=== PATIENT | male | born 1950 | race Caucasian/White ===

== ENCOUNTER 2018-01-16 22:09 | Inpatient (IN) ==
[2018-01-16] MEDS ORDERED: *HR* OxyCODONE Immed Rel 5 MG TABLET PO ONE (22:46)
--- NOTE | 2018-01-16 22:52 | Emergency Department Note ---
Disposition Clinical Impression: Pleural effusion, Generalized weakness, History of liver cancer Anemia Qualifiers: Anemia type: unspecified type Qualified Code(s): D64.9 - Anemia, unspecified Disposition: Admitted As Inpatient Condition: Fair Referrals: Elizabeth Arcos MD [Non-Partnered Physician] - Forms: ED Satisfaction Letter General Adult HPI - General Chief complaint: ED Fever Stated complaint: Fever Time Seen by Provider: 01/16/18 22:26 Source: patient, EMS Limitations: no limitations Nursing Notes Reviewed: Yes Vital Signs Reviewed: Yes - History of Present Illness HPI Narrative: This is a 67 year-old male with history of HTN, IDDM, COPD, CAD/stent, and liver cancer. Earlier today, he was discharged from [facility], where he had undergone cholecystectomy and removal of a liver mass. Earlier this evening, he had a subjective fever. He says that he "aches all over," though he denies any acute pain complaints. He reports a chronic, minimally productive cough. Ascites at baseline. He was diagnosed with liver cancer 1.5 years ago. He underwent radiation therapy, with last treatment 1 year ago. He has not received chemo. Family members suspect that he feels unwell because of the long car ride home from [place]. Pt Subjective Complaint: Fever Onset (ago): hour(s) Pain Scale: 8 Associated symptoms: Reports: cough (chronic), fever/chills (subjective). Denies: confusion, chest pain, headaches - Related Data Home Medications Medication Instructions Recorded Confirmed Aspirin 81 mg PO DAILY 08/14/16 10/22/17 Metoprolol Tartrate [Lopressor] 25 mg PO BID 08/14/16 10/22/17 Valsartan [Diovan] 320 mg PO DAILY 08/14/16 10/22/17 glipiZIDE [Glucotrol] 5 mg PO BIDWM 08/14/16 10/22/17 hydroCHLOROthiazide 25 mg PO DAILY 08/14/16 10/22/17 [Hydrochlorothiazide] metFORMIN [Glucophage] 1,000 mg PO BIDWM 08/14/16 10/22/17 Cholecalciferol (D-3) [Vitamin D] 2 tab PO DAILY 09/20/16 10/22/17 Dapagliflozin Propanediol [Farxiga] 10 mg PO DAILY 09/20/16 10/22/17 Liraglutide [Victoza 2-Justin] 1.8 mg SQ DAILY 09/20/16 10/22/17 Lovastatin 40 mg PO DAILY 09/20/16 10/22/17 Montelukast [Singulair] 10 mg PO DAILY 09/20/16 10/22/17 Gabapentin [Neurontin] 300 mg PO QID 10/02/16 10/22/17 [place]-3/Dha/Epa/Fish Oil [Fish Oil 1,000 mg PO DAILY 10/11/16 10/22/17 1,000 mg Softgel] Tiotropium [Spiriva] 1 cap IH DAILY 10/11/16 10/22/17 Vitamin E 400 unit PO DAILY 10/11/16 10/22/17 Vitamin B12 1 tab PO DAILY 11/08/16 10/22/17 Insulin ASPART [NovoLOG] 0 unit SQ TIDWM 06/25/17 10/22/17 Insulin DETEMIR [Levemir] 30 unit SQ 0800 06/25/17 10/22/17 Previous Rx's Medication Instructions Recorded HYDROcodone/Acet 5/325 mg [[place] 1 - 2 tab PO Q4H PRN #120 tab 03/14/17 5-325 mg] Allergies Allergy/AdvReac Type Severity Reaction Status Date / Time bacitracin Allergy Rash Verified 10/22/17 08:11 [From Neosporin ([id number])] Neomycin Allergy Rash Verified 10/22/17 08:11 [From Neosporin ([id number])] polymyxin B Allergy Rash Verified 10/22/17 08:11 [From Neosporin ([id number])] Sulfa (Sulfonamide Allergy Rash Verified 10/22/17 08:11 Antibiotics) All systems ED: reviewed and negative except as stated. Constitutional: Reports: chills, weakness (generalized) Cardiovascular: Denies: chest pain Respiratory: Reports: cough (chronic), dyspnea (sounds chronic) Gastrointestinal: Reports: abdominal pain (not acutely worse). Denies: vomiting , melena, hematochezia Musculoskeletal: Reports: myalgia Past Medical History - Past Medical History Medical history: Reports: arthritis, cancer, COPD, diabetes, hyperlipidemia, hypertension, liver disease Surgical history: Reports: appendectomy, orthopedic, other Psychiatric history: Reports: no psych history - Social History Smoking Status: Current every day smoker Smokeless Tobacco Status: No Alcohol use: Reports: occasionally Drug use: Reports: none Physical Exam - General Limitations: no limitations General appearance: alert - Head Head exam: atraumatic, normocephalic - Eye Eye exam: Present: normal appearance. Absent: scleral icterus - ENT ENT exam: normal exam, mucous membranes moist - Neck Neck exam: Present: normal inspection. Absent: meningismus - Respiratory Respiratory exam: Present: normal lung sounds bilaterally. Absent: respiratory distress - Cardiovascular Cardiovascular exam: Present: regular rate, normal rhythm, normal heart sounds - Abdominal Exam Abdominal exam: Present: soft, tenderness (moderate), distention (ascites). Absent: guarding, rebound, rigidity Abdominal tenderness: Present: RUQ, diffuse - Extremities Exam Extremities exam: Present: normal inspection - Neurological Exam Neurological exam: Present: alert, oriented X3. Absent: motor sensory deficit - Psychiatric Psychiatric exam: Present: depressed - Skin Skin exam: Present: erythema (faint erythema adjacent to abdominal port/ incision sites, not obviously cellulitic) Course - Reevaluation(s) Reevaluation #1: Re-evaluated patient. Updated patient and family on diagnostics we have so far. Patient not aware of anemia while at [facility]. We have requested records. He denies any hematemesis, hematochezia, or melena. CT scan and other labs pending. Patient and his family feel that he will be need to be admitted, as he is "too weak to go home." Given his co-morbidities and recent hospitalization/procedure , I feel this is reasonable. Patient and family do not want to be transferred back to [facility]. Once we get more diagnostics back, I'll make some calls. Time: 00:18 Reevaluation #2: Patient remains stable. Updated patient and family on test results and plans for admission. Time: 01:34 - Consultations Consultation #1: Discussed case with heme-onc parts counter sales person, Dr. Grover. He suspects patient is volume- depleted and suggests we hydrate. He also recommends we transfused 1 unit of PRBCs. He suspects the patient's possible fever may have been due to atelectasis , so he does not recommend antibiotics at this time. He feels that patient is appropriate for obs by the hospitalist. Time: 00:44 Consultation #2: Discussed case with Dr. Gallegos, and she has accepted patient for observation. Time: 01:12 Time: 01:35 Additional Consultation(s): Discussed CT result Dr. Gallegos. No antibiotic coverage at this time. Vital Signs Temperature 97.6 F 01/16/18 22:14 Pulse Rate 87 01/16/18 22:14 Respiratory Rate 18 01/16/18 22:14 Blood Pressure 149/75 01/16/18 22:14 O2 Sat by Pulse Oximetry 96 01/16/18 22:14 Temperature 98.2 F 01/16/18 23:12 Pulse Rate 76 01/17/18 01:20 Respiratory Rate 26 01/17/18 01:20 Blood Pressure 149/80 01/17/18 01:20 O2 Sat by Pulse Oximetry 98 01/17/18 01:20 Oxygen Delivery Oxygen Delivery Room Air Medical Decision Making - MDM Narrative Medical decision making narrative: This is a chronically ill patient with recent abdominal surgery due to complications of liver cancer. He presented with subjective fever, malaise, and generalized weakness. He is afebrile here. DDx is quite broad, given patient's co-morbidities and the nonfocal nature of his symptoms. We will obtain basic blood tests, CXR, UA, and CT abdomen/pelvis and will review the case with Dr. Navarro and/or his physicians as [facility]. - Medical Records Medical records reviewed: Yes I reviewed the patient's medical records. Hgb generally trended down while at [facility]. His Hgb was 9.3 on 01/16. - Lab Data Lab results reviewed: Yes I reviewed the patient's lab results. Result diagrams: 01/16/18 23:13 01/16/18 23:13 Lab Results 01/16/18 01/16/18 01/16/18 Range/Units 23:10 23:13 23:13 WBC 11.1 (4.3-11.1) K/mcL RBC 2.68 L (4.19-5.50) M/mcL Hgb 8.3 L (12.9-16.9) g/dL Hct 24.5 L (37.5-50.1) % MCV 91.4 (83.0-100.0) fL MCH 31.0 (28.0-33.3) pg MCHC 33.9 (31.6-35.5) g/dL RDW 14.0 (11.5-14.5) % Plt Count 206 (140-400) K/mcL MPV 9.6 (9.4-12.4) fL Immature Gran % 0.6 (0-4) % Seg Neutrophils % 72.7 % Lymphocytes % 12.1 % Monocytes % 13.9 % Eosinophils % 0.5 % Basophils % 0.2 % Neutrophils # 8.0 (1.6-8.9) K/mcL Lymphocytes # 1.3 (0.6-4.6) K/mcL Monocytes # 1.5 H (0.0-1.3) K/mcL Eosinophils # 0.1 (0.0-0.6) K/mcL Basophils # 0.0 (0.0-0.2) K/mcL PT 12.8 H (9.4-12.1) Seconds INR 1.2 Sodium (136-145) mEq/L Potassium (3.5-5.1) mEq/L Chloride (98-107) mEq/L Carbon Dioxide (23-29) mEq/L BUN (8-23) mg/dL Creatinine (0.70-1.30) mg/dL Est GFR ( Amer) (> 60) Est GFR (Non-Af Amer) (> 60) BUN/Creatinine Ratio (6-26) Glucose (70-105) mg/dL Calculated Osmolality (280-300) Lactic Acid 0.9 (0.5-2.2) mmol/L Calcium (8.6-10.3) mg/dL Total Bilirubin (0.3-1.0) mg/dL Direct Bilirubin (0.0-0.2) mg/dL Indirect Bilirubin (0.0-1.2) mg/dL AST (13-39) Units/L ALT (7-52) Units/L Alkaline Phosphatase (34-104) Units/L Troponin I (< 0.04) ng/mL B-Natriuretic Peptide (Less than 100) pg/mL Serum Total Protein (6.4-8.9) g/dL Albumin (3.5-5.7) g/dL Globulin (2.4-3.5) g/dL Albumin/Globulin Ratio (1.1-2.2) Urine Color (Yellow) Urine Clarity (Clear) Urine pH (5.0-8.0) pH Units Ur Specific [place] (1.010-1.025) Urine Protein (Neg-Trace) mg/dL Urine Glucose (UA) (Normal) mg/dL Urine Ketones (Negative) mg/dL Urine Blood (Negative) Urine Nitrite (Negative) Urine Bilirubin (Negative) Urine Urobilinogen (Normal) mg/dL Ur Leukocyte Esterase (Negative) Urine Microscopic RBC (0-3) per hpf Urine Microscopic WBC (0-3) per hpf Ur Squamous Epith Cells (None-Few) per lpf Urine Bacteria (None-Few) per hpf Hyaline Casts (None-Few) per lpf Ur Culture Indicated? (NO) 01/16/18 01/16/18 01/16/18 Range/Units 23:13 23:13 23:13 WBC (4.3-11.1) K/mcL RBC (4.19-5.50) M/mcL Hgb (12.9-16.9) g/dL Hct (37.5-50.1) % MCV (83.0-100.0) fL MCH (28.0-33.3) pg MCHC (31.6-35.5) g/dL RDW (11.5-14.5) % Plt Count (140-400) K/mcL MPV (9.4-12.4) fL Immature Gran % (0-4) % Seg Neutrophils % % Lymphocytes % % Monocytes % % Eosinophils % % Basophils % % Neutrophils # (1.6-8.9) K/mcL Lymphocytes # (0.6-4.6) K/mcL Monocytes # (0.0-1.3) K/mcL Eosinophils # (0.0-0.6) K/mcL Basophils # (0.0-0.2) K/mcL PT (9.4-12.1) Seconds INR Sodium 129 L (136-145) mEq/L Potassium 4.1 (3.5-5.1) mEq/L Chloride 96 L (98-107) mEq/L Carbon Dioxide 25 (23-29) mEq/L BUN 22 (8-23) mg/dL Creatinine 0.83 (0.70-1.30) mg/dL Est GFR ( Amer) > 60 (> 60) Est GFR (Non-Af Amer) > 60 (> 60) BUN/Creatinine Ratio 27 H (6-26) Glucose 251 H (70-105) mg/dL Calculated Osmolality 280 (280-300) Lactic Acid (0.5-2.2) mmol/L Calcium 8.8 (8.6-10.3) mg/dL Total Bilirubin 0.5 (0.3-1.0) mg/dL Direct Bilirubin 0.1 (0.0-0.2) mg/dL Indirect Bilirubin 0.4 (0.0-1.2) mg/dL AST 39 (13-39) Units/L ALT 222 H (7-52) Units/L Alkaline Phosphatase 119 H (34-104) Units/L Troponin I < 0.03 (< 0.04) ng/mL B-Natriuretic Peptide 152 H (Less than 100) pg/mL Serum Total Protein 6.1 L (6.4-8.9) g/dL Albumin 3.0 L (3.5-5.7) g/dL Globulin 3.1 (2.4-3.5) g/dL Albumin/Globulin Ratio 1.0 L (1.1-2.2) Urine Color (Yellow) Urine Clarity (Clear) Urine pH (5.0-8.0) pH Units Ur Specific [place] (1.010-1.025) Urine Protein (Neg-Trace) mg/dL Urine Glucose (UA) (Normal) mg/dL Urine Ketones (Negative) mg/dL Urine Blood (Negative) Urine Nitrite (Negative) Urine Bilirubin (Negative) Urine Urobilinogen (Normal) mg/dL Ur Leukocyte Esterase (Negative) Urine Microscopic RBC (0-3) per hpf Urine Microscopic WBC (0-3) per hpf Ur Squamous Epith Cells (None-Few) per lpf Urine Bacteria (None-Few) per hpf Hyaline Casts (None-Few) per lpf Ur Culture Indicated? (NO) 01/17/18 Range/Units 00:04 WBC (4.3-11.1) K/mcL RBC (4.19-5.50) M/mcL Hgb (12.9-16.9) g/dL Hct (37.5-50.1) % MCV (83.0-100.0) fL MCH (28.0-33.3) pg MCHC (31.6-35.5) g/dL RDW (11.5-14.5) % Plt Count (140-400) K/mcL MPV (9.4-12.4) fL Immature Gran % (0-4) % Seg Neutrophils % % Lymphocytes % % Monocytes % % Eosinophils % % Basophils % % Neutrophils # (1.6-8.9) K/mcL Lymphocytes # (0.6-4.6) K/mcL Monocytes # (0.0-1.3) K/mcL Eosinophils # (0.0-0.6) K/mcL Basophils # (0.0-0.2) K/mcL PT (9.4-12.1) Seconds INR Sodium (136-145) mEq/L Potassium (3.5-5.1) mEq/L Chloride (98-107) mEq/L Carbon Dioxide (23-29) mEq/L BUN (8-23) mg/dL Creatinine (0.70-1.30) mg/dL Est GFR ( Amer) (> 60) Est GFR (Non-Af Amer) (> 60) BUN/Creatinine Ratio (6-26) Glucose (70-105) mg/dL Calculated Osmolality (280-300) Lactic Acid (0.5-2.2) mmol/L Calcium (8.6-10.3) mg/dL Total Bilirubin (0.3-1.0) mg/dL Direct Bilirubin (0.0-0.2) mg/dL Indirect Bilirubin (0.0-1.2) mg/dL AST (13-39) Units/L ALT (7-52) Units/L Alkaline Phosphatase (34-104) Units/L Troponin I (< 0.04) ng/mL B-Natriuretic Peptide (Less than 100) pg/mL Serum Total Protein (6.4-8.9) g/dL Albumin (3.5-5.7) g/dL Globulin (2.4-3.5) g/dL Albumin/Globulin Ratio (1.1-2.2) Urine Color Yellow (Yellow) Urine Clarity Cloudy A (Clear) Urine pH 5.5 (5.0-8.0) pH Units Ur Specific [place] 1.026 H (1.010-1.025) Urine Protein 30 H (Neg-Trace) mg/dL Urine Glucose (UA) >=1000 H (Normal) mg/dL Urine Ketones Negative (Negative) mg/dL Urine Blood Negative (Negative) Urine Nitrite Negative (Negative) Urine Bilirubin Negative (Negative) Urine Urobilinogen Normal (Normal) mg/dL Ur Leukocyte Esterase Negative (Negative) Urine Microscopic RBC 5-15 H (0-3) per hpf Urine Microscopic WBC 0-3 (0-3) per hpf Ur Squamous Epith Cells Many H (None-Few) per lpf Urine Bacteria None Seen (None-Few) per hpf Hyaline Casts Few (None-Few) per lpf Ur Culture Indicated? NO (NO) - Radiology Data Radiology results reviewed: Yes I reviewed the patient's radiology results. XR/XR chest 1V portable IMPRESSION: New small layering left pleural effusion with left base opacity that may reflect atelectasis or pneumonia. CT/CT abd pelvis w iv no oral IMPRESSION: Gas containing subcapsular fluid collections in the left and right hepatic lobes, as detailed above. Foci of gas may be postsurgical, however cannot exclude superinfection and developing hepatic abscesses. Mild dilatation of the duodenum, presumably reactive adynamic ileus. Asymmetric urinary bladder wall thickening is new since 10/15/2017 PET-CT and favored to represent asymmetric contraction of the urinary bladder. Additionally, nondependent gas within the bladder is also presumably related instrumentation/camacho catheterization. Consider correlation with urinalysis if there is concern for cystitis. Gas within the right rectus muscles, presumably postsurgical. No superficial soft tissue drainable fluid collection. Recommend attention on follow-up. Small right and trace left pleural effusions. Mild body wall edema. - EKG Data EKG #1 EKG attestation: Yes I reviewed and interpreted this EKG. EKG shows normal: sinus rhythm Rate: normal Rhythm: NSR Mcgraw/QRS: normal When compared to previous EKG there are: changes noted (inferior Q waves (lead III) more prominent than on tracing from 01/05/18) Interpretation: other (no acute ischemic findings noted)
[2018-01-16] MEDS ORDERED: Isovue-370 500 ML INFUS..BTL IV ONE (23:19)
[2018-01-16 23:31] LABS: Basophils % 0.2 %; Eosinophils # 0.1 K/mcL (0.0-0.6); Eosinophils % 0.5 %; Hematocrit 24.5 % (37.5-50.1); Hemoglobin 8.3 g/dL (12.9-16.9); Immature Granulocytes % 0.6 % (0-4); Lymphocytes # 1.3 K/mcL (0.6-4.6); Lymphocytes % 12.1 %; Mean Corpuscular HGB Conc 33.9 g/dL (31.6-35.5); Mean Corpuscular Volume 91.4 fL (83.0-100.0); Mean Platelet Volume 9.6 fL (9.4-12.4); Monocytes # 1.5 K/mcL (0.0-1.3); Monocytes % 13.9 %; Platelet Count 206 K/mcL (140-400); Red Blood Count 2.68 M/mcL (4.19-5.50); Segmented Neutrophils % 72.7 %
[2018-01-16 23:36] LABS: INR 1.2; Prothrombin Time 12.8 Seconds (9.4-12.1)
[2018-01-17 00:12] LABS: Bilirubin,Urine Negative (Negative); Blood,Urine Negative (Negative); Clarity,Urine Cloudy (Clear); Color,Urine Yellow (Yellow); Glucose,Urine (UA) >=1000 mg/dL (Normal); Ketones,Urine Negative (Negative); Leukocyte Esterase,Urine Negative (Negative); Nitrite,Urine Negative (Negative); PH,Urine 5.5 pH Units (5.0-8.0); Protein,Urine 30 mg/dL (Neg-Trace); Specific Gravity,Urine 1.026 (1.010-1.025); Urobilinogen,Urine Normal (Normal)
[2018-01-17 00:14] LABS: Bacteria,Urine None Seen per hpf (None-Few); Hyaline Casts,Urine Few per lpf (None-Few); Squamous Epithelial Cell,Urine Many per lpf (None-Few); WBC,Urine 0-3 per hpf (0-3)
[2018-01-17 00:29] LABS: Alanine Aminotransferase 222 Units/L (7-52); Alkaline Phosphatase 119 Units/L (34-104); Aspartate Amino Transferase 39 Units/L (13-39); BUN/Creatinine Ratio 27 (6-26); Bilirubin,Direct 0.1 mg/dL (0.0-0.2); Bilirubin,Indirect 0.4 mg/dL (0.0-1.2); Bilirubin,Total 0.5 mg/dL (0.3-1.0); Blood Urea Nitrogen 22 mg/dL (8-23); Calcium 8.8 mg/dL (8.6-10.3); Carbon Dioxide 25 mEq/L (23-29); Chloride 96 mEq/L (98-107); Globulin 3.1 g/dL (2.4-3.5); Glucose 251 mg/dL (70-105); Osmolality,Calculated 280 (280-300); Potassium 4.1 mEq/L (3.5-5.1); Sodium 129 mEq/L (136-145); Total Protein 6.1 g/dL (6.4-8.9); eGFR For African Americans > 60 (> 60); eGFR For Non-African Americans > 60 (> 60)
[2018-01-17] MEDS ORDERED: 0.9 % Sodium Chloride 1,000 ML IVC ONE (00:46)
[2018-01-17] MEDS ORDERED: *HR* OxyCODONE Immed Rel 5 MG TABLET PO ONE (01:17)
--- NOTE | 2018-01-17 01:19 | Internal Med History&Physical ---
Date of Encounter: 01/17/18 Time of Encounter: 01:15 Internal Medicine - H&P: HPI Chief complaint: weakness Admitted From: Emergency Dept Plans for Post Hospital Care: Home History of present illness: Mr. 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 Surgeries were done on Friday and discharged Friday. He was intubated for surgery and extubated right after. He experienced subjective fevers and generalized weakness with body aches all over once he got home. He did not want to go back to [facility] as he wasnt happy with his stay there and decided to come here which is closer to home for him too. He says some of the above symptoms were there when he was hospitalized there. He has a wet cough. In the ED, hemodynamically stable. Work up revealed hgb of 8.3 with no reported bleeding. Previous hgb was 13.1. Oncology assistant professor of communication were called and advised 1 unit PRBCs. WBC 11.1. Sodium was 129. AST was elevated at 222 but previously normal on 01/05/2018. Alkaline phos 119 and previously normal on 01/05/2018. AST is normal here. UA was negative for infection. CXR showed new small layering left plerual effusion with left base opacity that may reflect atelectasis or pneumonia. A CT abd/ pelvis done showed gas containing subcapsular fluid collection in the left and right hepating lobes. Those were possibly postsurgical vs hepatic abscesses. Gas within the right rectus muscles presumeably postsurgical. They also commented on asymmetric urinary bladder wall thickening. Denies headache, blurry vision, chest pain, urinary symptoms, or neurological symptoms. He does have some abdominal discomfort still in the right upper quadrant area from the surgery. He has been tolerating regular diet there. Past Med Surg Social Fam HX - Past Medical History Medical history: arthritis, cancer, COPD, diabetes, hyperlipidemia, hypertension , liver disease Psychiatric history: no psych history - Past Surgical History Surgical History: appendectomy, orthopedic, other - Social History Smoking Status: Current every day smoker Smokeless Tobacco Status: No Alcohol use: occasionally Drug use: none Internal Medicine - H&P: Meds Aspirin 81 mg PO DAILY 08/14/16 [History] Metoprolol Tartrate [Lopressor] 25 mg PO BID 08/14/16 [History] Valsartan [Diovan] 320 mg PO DAILY 08/14/16 [History] glipiZIDE [Glucotrol] 5 mg PO BIDWM 08/14/16 [History] hydroCHLOROthiazide [Hydrochlorothiazide] 25 mg PO DAILY 08/14/16 [History] metFORMIN [Glucophage] 1,000 mg PO BIDWM 08/14/16 [History] Cholecalciferol (D-3) [Vitamin D] 2 tab PO DAILY 09/20/16 [History] Dapagliflozin Propanediol [Farxiga] 10 mg PO DAILY 09/20/16 [History] Liraglutide [[place]za 2-Justin] 1.8 mg SQ DAILY 09/20/16 [History] Lovastatin 40 mg PO DAILY 09/20/16 [History] Montelukast [Singulair] 10 mg PO DAILY 09/20/16 [History] Gabapentin [Neurontin] 300 mg PO QID 10/02/16 [History] [place]-3/Dha/Epa/Fish Oil [Fish Oil 1,000 mg Softgel] 1,000 mg PO DAILY 10/11/16 [History] Tiotropium [Spiriva] 1 cap IH DAILY 10/11/16 [History] Vitamin E 400 unit PO DAILY 10/11/16 [History] Vitamin B12 1 tab PO DAILY 11/08/16 [History] HYDROcodone/Acet 5/325 mg [[place] 5-325 mg] 1 - 2 tab PO Q4H PRN #120 tab [Rx] Insulin ASPART [NovoLOG] 0 unit SQ TIDWM 06/25/17 [History] Insulin DETEMIR [Levemir] 30 unit SQ 0800 06/25/17 [History] 3 Allergy/AdvReac Type Severity Reaction Status Date / Time bacitracin Allergy Rash Verified 10/22/17 08:11 [From Neosporin ([id number])] Neomycin Allergy Rash Verified 10/22/17 08:11 [From Neosporin ([id number])] polymyxin B Allergy Rash Verified 10/22/17 08:11 [From Neosporin ([id number]-sfs-[id number])] Sulfa (Sulfonamide Allergy Rash Verified 10/22/17 08:11 Antibiotics) All Systems PM: A 10-system review of systems was performed and is negative for pertinent findings except as documented above in the HPI. Review of systems: All systems reviewed are negative except as mentioned above - Constitutional Vitals: Temp Pulse Resp BP Pulse Ox 98.2 F 87 18 149/75 96 01/16/18 23:12 01/16/18 22:14 01/16/18 22:14 01/16/18 22:14 01/16/18 22:14 Exam: GEN: NAD HEENT: AT, NC, No cyanosis, oral mucosa is moist, No JVD Lymphatics: No lymphadenoapthy Eyes: Extrocular muscles intact, anicteric CVS:RRR. S1, S2, No m/r/g RESP: CTAB ABD: Soft, NT, right upper quadrant tenderness to mild palpation +BS EXT: 1+ edema, No rashes, 2+ DP NEURO: Nonfocal, CN II-XII intact, No focal motor or sensory deficits Psych: Cooperative, Not anxious or depressed Internal Med - H&P Results - Labs CBC & Chem 7: 01/16/18 23:13 01/16/18 23:13 Labs: Short CBC 01/16/18 Range/Units 23:13 WBC 11.1 (4.3-11.1) K/mcL Hgb 8.3 L (12.9-16.9) g/dL Hct 24.5 L (37.5-50.1) % Plt Count 206 (140-400) K/mcL Neutrophils # 8.0 (1.6-8.9) K/mcL BMP 01/16/18 23:13 Sodium 129 L Potassium 4.1 Chloride 96 L Carbon Dioxide 25 BUN 22 Creatinine 0.83 Glucose 251 H Calcium 8.8 Cardiac Enzymes 01/16/18 Range/Units 23:13 Troponin I < 0.03 (< 0.04) ng/mL Liver Function 01/16/18 Range/Units 23:13 Total Bilirubin 0.5 (0.3-1.0) mg/dL Direct Bilirubin 0.1 (0.0-0.2) mg/dL AST 39 (13-39) Units/L ALT 222 H (7-52) Units/L Alkaline Phosphatase 119 H (34-104) Units/L Albumin 3.0 L (3.5-5.7) g/dL Urine 01/17/18 Range/Units 00:04 Urine Color Yellow (Yellow) Urine Clarity Cloudy A (Clear) Urine pH 5.5 (5.0-8.0) pH Units Ur Specific [place] 1.026 H (1.010-1.025) Urine Protein 30 H (Neg-Trace) mg/dL Urine Glucose (UA) >=1000 H (Normal) mg/dL - Impressions ITS Impressions Chest X-Ray 01/16/18 22:45 IMPRESSION: New small layering left pleural effusion with left base opacity that may reflect atelectasis or pneumonia. D/ / Perez Mccormack / Perez Mccormack Interpreting Provider: Perez Mccormack - Assessment and plan (1) Generalized weakness Current Visit: Yes Status: Acute Assessment and plan: Multifactorial with anemia and HCAP. Treat as below. PT/OT (2) HCAP (healthcare-associated pneumonia) Current Visit: Yes Status: Acute Assessment and plan: Patient has subjective fevers. wet cough. shortness of breath. CXR not definitive. Will treat as HCAP and see how he does. O2 support. Nebs. IV vanco/ zosyn. check sputum. check urine strep/legionella. (3) Edema extremities Current Visit: Yes Status: Acute Assessment and plan: Family states patient received significant amount of fluids there. Reji give one time IV lasix 40 mg. BNP mildly elevated at 152. Consider TTE. No history of heart failure (4) Anemia Current Visit: Yes Status: Acute Assessment and plan: Likely post op blood loss. Oncology were contacted by the ED and recommended 1 unit PRBCs. will check labs in am. Lasix with PRBCs as patient has LE edema. Qualifiers: Anemia type: unspecified type Qualified Code(s): D64.9 - Anemia, unspecified (5) History of liver cancer Current Visit: Yes Status: Acute Assessment and plan: s/p post a liver surgery which family tells me they removed a couple of cancerous lesions. Will request records from [facility]. c/s oncology. Findings on CT abd/pelvis are likely post surgical. (6) Type 2 diabetes mellitus Current Visit: No Status: Acute Assessment and plan: Will just put him on sliding scale for now. Will start basal insulin at 15 units for now. Can uptitrate basal insulin once showing that he is actually taking adequate PO post op. Qualifiers: Diabetes mellitus mcc insulin use: with rodent exterminator use Diabetes mellitus complication status: without complication Qualified Code(s): E11.9 - Type 2 diabetes mellitus without complications; Z79.4 - rodent exterminator (current) use of insulin; Z79.4 - rodent exterminator (current) use of insulin; Z79.4 - retirement ( current) use of insulin; Z79.4 - rodent exterminator (current) use of insulin (7) DVT prophylaxis Current Visit: Yes Status: Acute Assessment and plan: SCDs - Time Spent With Patient Total time spent is greater than 50% in coordination of care (as documented) at patient's floor/unit and/or counseling patient:
[2018-01-17] MEDS ORDERED: Naloxone 0.4 MG/ML INJ IVP PRN (01:58)
[2018-01-17] MEDS ORDERED: Ondansetron 4 MG/2 ML VIAL IVP PRN (01:59)
[2018-01-17] MEDS ORDERED: D5% in Water 1,000 ML IVC PRN (02:00)
[2018-01-17] MEDS ORDERED: Dextrose Gel 15 GM/37.5 ML TUBE PO PRN ×2 (02:00)
[2018-01-17] MEDS ORDERED: Furosemide 40 MG/4 ML VIAL IVP ONE (02:00)
[2018-01-17] MEDS ORDERED: *HR* Dextrose 50 % in Water (Syg) 50 ML SYRINGE IVP PRN (02:00)
[2018-01-17] MEDS ORDERED: Insulin DETEMIR 100 UNIT/ML X5UNITS SQ ONE (02:14)
[2018-01-17] MEDS ORDERED: 0.9 % Sodium Chloride 250 ML ONE (04:04)
[2018-01-17] MEDS: *HR* OxyCODONE Immed Rel 5 MG TABLET PO PRN ×3 (04:08→20:35)
[2018-01-17] MEDS: Piperacillin/Tazobactam 3.375 GM in 0.9 % Sodium Chloride Mini Bag 100 ML IVPB SCH ×2 (08:23→17:55)
[2018-01-17] MEDS: Insulin LISPRO 300 UNITS/3 ML VIAL SQ SCH ×4 (08:24→20:36)
[2018-01-17 09:01] LABS: Basophils % 0.3 %; Eosinophils # 0.1 K/mcL (0.0-0.6); Eosinophils % 0.4 %; Hematocrit 31.9 % (37.5-50.1); Immature Granulocytes % 0.8 % (0-4); Lymphocytes # 1.2 K/mcL (0.6-4.6); Lymphocytes % 10.6 %; Mean Corpuscular HGB Conc 33.5 g/dL (31.6-35.5); Mean Corpuscular Hemoglobin 30.8 pg (28.0-33.3); Mean Corpuscular Volume 91.9 fL (83.0-100.0); Mean Platelet Volume 9.6 fL (9.4-12.4); Monocytes # 1.5 K/mcL (0.0-1.3); Monocytes % 13.1 %; Neutrophils # 8.8 K/mcL (1.6-8.9); Platelet Count 218 K/mcL (140-400); Red Blood Count 3.47 M/mcL (4.19-5.50); Red Cell Distribution Width 14.3 % (11.5-14.5); Segmented Neutrophils % 74.8 %
[2018-01-17 09:03] LABS: Hemoglobin 10.7 g/dL (12.9-16.9)
[2018-01-17] MEDS ORDERED: Chloraseptic Spray 177 ML BOTTLE MM PRN (09:09)
[2018-01-17 09:13] LABS: BUN/Creatinine Ratio 23 (6-26); Blood Urea Nitrogen 19 mg/dL (8-23); Calcium 9.3 mg/dL (8.6-10.3); Carbon Dioxide 26 mEq/L (23-29); Chloride 96 mEq/L (98-107); Glucose 248 mg/dL (70-105); Magnesium 1.8 mg/dL (1.6-2.6); Osmolality,Calculated 283 (280-300); Potassium 4.2 mEq/L (3.5-5.1); Sodium 131 mEq/L (136-145); eGFR For African Americans > 60 (> 60); eGFR For Non-African Americans > 60 (> 60)
--- NOTE | 2018-01-17 13:58 | Internal Med Progress Note ---
<RobertBrandon price - Last Filed: 01/17/18 13:56> Date of Encounter: 01/17/18 Time of Encounter: 09:22 - Assessment and plan (1) History of liver cancer Current Visit: Yes Status: Acute Assessment and plan: - s/p post a liver surgery at [facility] which family and patient reports removal of 3 lesions - Will request records from [facility]. - oncology consulted in the emergency room. - Findings on CT abd/pelvis of 3 areas of gas formation in the liver are likely post surgical. - Oncology note says stage IV cancer of unknown primary lesion. Hepatocellular CA given high AFP but also consider cholangiocarcinoma. - Subjective fevers could be a complication of surgery, however CT abdomen shows gas formation which could be secondary to post surgical changes. - Mild abdominal tenderness, no external signs of infection. Plan - Continue to monitor and treat as outpatient - Monitor for signs of post surgical complications - Continue vancomycin and zosyn day #1 for broad spectrum abx - Will plan on repeat CT abdomen tomorrow to evaluate for post surgical changes vs abscess formation. (2) Type 2 diabetes mellitus Current Visit: No Status: Chronic Assessment and plan: Blood sugar most recently 248 on sliding scale insulin Most recent A1c of 9.2% on 01/05/18 Patient has moderate dose sliding scale insulin We will continue sliding scale insulin and adjust for optimal blood sugar control Qualifiers: Diabetes mellitus intermodal dispatcher insulin use: with penitentiary use Diabetes mellitus complication status: without complication Qualified Code(s): E11.9 - Type 2 diabetes mellitus without complications; Z79.4 - [facility] (current) use of insulin; Z79.4 - [facility]CI (current) use of insulin; Z79.4 - [facility]CI ( current) use of insulin; Z79.4 - intermodal dispatcher (current) use of insulin (3) Anemia Current Visit: Yes Status: Acute Assessment and plan: H/H on presentation of 8.3/24.5, he did receive 1 unit of packed red blood cells in the emergency room per oncology recommendation Etiology most likely postoperative blood loss Baseline hemoglobin 13-14 After transfusion, hemoglobin increased to 10.7 Patient is asymptomatic except for fatigue which is likely related to his known cancer and recent surgery No evidence of continued postoperative bleeding on abdominal CT Plan Continue to monitor for time being and transfuse as necessary Will obtain additional CT tomorrow Qualifiers: Anemia type: unspecified type Qualified Code(s): D64.9 - Anemia, unspecified (4) Generalized weakness Current Visit: Yes Status: Acute Assessment and plan: Multifactorial with anemia, cancer, recent surgery and HCAP. Treat as below. PT/ OT (5) HCAP (healthcare-associated pneumonia) Current Visit: Yes Status: Acute Assessment and plan: - Patient has subjective fevers. wet cough. shortness of breath. -CXR in ED showing layed pleural effusion on left, possible superimposed PNA vs atelectasis - Mild WBC elevation of 11.8. Vitals wnl. - Sputum and blood cultures pending - Legionella and strep negative. Plan - Will treat as HCAP and possible post surgical infection with vanc and zosyn. - O2 support. Nebs. (6) Edema extremities Current Visit: Yes Status: Acute Assessment and plan: -Family states patient received significant amount of fluids while at [facility]. - BNP 152 - No history of CHF. - Received one dose of lasix 40 mg overnight with good output. - CXR with pleural effusion Plan - Will continue lasix and monitor for improvement - Consider echo if no improvement. (7) DVT prophylaxis Current Visit: Yes Status: Acute Assessment and plan: SCDs (8) Pleural effusion Current Visit: Yes Status: Acute Assessment and plan: On chest Xray as above. (9) Carcinoma of unknown primary Current Visit: Yes Status: Chronic Assessment and plan: - As above for liver cancer. (10) Acute respiratory failure with hypoxia Current Visit: Yes Status: Resolved Assessment and plan: No home O2 requirement likely secondary to HCAP and pleural effusion as above. resolved, on room air - Time Spent With Patient Total time spent is greater than 50% in coordination of care (as documented) at patient's floor/unit and/or counseling patient: 25 - 35 minutes - Subjective Interval history: This note is not for billing purposes this patient was admitted after midnight. Patient seen and examined at bedside this morning. He states that he still feels "horrible". Following his surgery in the last week. States that he left the hospital because he was not receiving proper care. Admits to generalized abdominal pain, which is located most severely in the right upper quadrant. States she has been having subjective fevers and chills throughout this time. Denies any shortness of breath but does admit to a nonproductive cough. Denies any symptoms of nausea, vomiting, chest pain - Constitutional Vitals: Temp Pulse Resp BP Pulse Ox 97.7 F 82 16 146/68 92 01/17/18 11:35 01/17/18 11:35 01/17/18 11:35 01/17/18 11:35 01/17/18 11:35 Exam: Gen.: Vitals noted. No acute distress. AAOx3, lying comfortably in bed HEENT: PERRL/EOMI, oropharynx clear, Normocephalic, atraumatic, moist mucous membranes Cardiac: RRR, no murmur, +S1/S2 Pulmonary: Decreased breath sounds on left base, otherwise clear to auscultation bilaterally, equal chest expansion Abdomen: soft, moderately tender to palpation diffusely, worse in the right upper quadrant, BS noted, no guarding, mildly distended MSK: ROM intact, no joint swelling noted Extremities: no BLE edema, nontender calf, no cyanosis or clubbing Neuro: A&Ox3, moves all extremities, no focal deficits Psych: Appropriate mood and behavior . Internal Medicine: Result - Labs CBC & Chem 7: 01/17/18 08:44 01/17/18 08:44 Labs: Short CBC 01/17/18 Range/Units 08:44 WBC 11.8 H (4.3-11.1) K/mcL Hgb 10.7 L D (12.9-16.9) g/dL Hct 31.9 L (37.5-50.1) % Plt Count 218 (140-400) K/mcL Neutrophils # 8.8 (1.6-8.9) K/mcL BMP 01/17/18 08:44 Sodium 131 L Potassium 4.2 Chloride 96 L Carbon Dioxide 26 BUN 19 Creatinine 0.81 Glucose 248 H Calcium 9.3 - ABG Interpretation ABG results: PT/INR, D-dimer PT 12.8 Seconds (9.4-12.1) H 01/16/18 23:13 - Impressions Impressions Abdomen/Pelvis CT 01/17/18 23:19 IMPRESSION: Gas containing and subcapsular fluid collections in the left and right hepatic lobes, as detailed above. While foci of gas may be postsurgical, however, cannot exclude superinfection and developing hepatic abscesses. Mild dilatation of the duodenum, presumably reactive adynamic ileus. Asymmetric urinary bladder wall thickening is new since 10/15/2017 PET-CT and may represent asymmetric contraction of the urinary bladder. Additionally, nondependent gas within the bladder is presumably related to instrumentation/Posadas catheterization. Consider correlation with urinalysis if there is concern for cystitis. Gas within the right rectus muscles, presumably postsurgical. No superficial soft tissue drainable fluid collection. Recommend attention on follow-up. Small right and trace left pleural effusions. Mild body wall edema. D/ / 01/17/2018 07:10:21 Lj Moore / Gayatri Smith Interpreting Provider: Lj Moore Consult Discharge Plan - Plan [facility]: [facility] Care Provider[facility] - <Cole Montalvo - Last Filed: 01/17/18 16:23> Date of Encounter: 01/17/18 - Assessment and plan (1) Acute respiratory failure with hypoxia Current Visit: Yes Status: Resolved (2) Type 2 diabetes mellitus Current Visit: No Status: Chronic Qualifiers: Diabetes mellitus penitentiary insulin use: with intermodal dispatcher use Diabetes mellitus complication status: without complication Qualified Code(s): E11.9 - Type 2 diabetes mellitus without complications; Z79.4 - intermodal dispatcher (current) use of insulin; Z79.4 - [facility]CI (current) use of insulin; Z79.4 - [facility] ( current) use of insulin; Z79.4 - intermodal dispatcher (current) use of insulin (3) Carcinoma of unknown primary Current Visit: Yes Status: Chronic (4) Pleural effusion Current Visit: Yes Status: Acute (5) Anemia Current Visit: Yes Status: Acute Qualifiers: Anemia type: unspecified type Qualified Code(s): D64.9 - Anemia, unspecified (6) Generalized weakness Current Visit: Yes Status: Acute (7) History of liver cancer Current Visit: Yes Status: Acute (8) HCAP (healthcare-associated pneumonia) Current Visit: Yes Status: Acute (9) Edema extremities Current Visit: Yes Status: Acute (10) DVT prophylaxis Current Visit: Yes Status: Acute - Time Spent With Patient Total time spent is greater than 50% in coordination of care (as documented) at patient's floor/unit and/or counseling patient: - Constitutional Vitals: Temp Pulse Resp BP Pulse Ox 99.3 F 84 18 134/68 91 01/17/18 15:13 01/17/18 15:13 01/17/18 15:13 01/17/18 15:13 01/17/18 15:13 Internal Medicine: Result - Labs CBC & Chem 7: 01/17/18 08:44 01/17/18 08:44 Labs: Short CBC 01/17/18 Range/Units 08:44 WBC 11.8 H (4.3-11.1) K/mcL Hgb 10.7 L D (12.9-16.9) g/dL Hct 31.9 L (37.5-50.1) % Plt Count 218 (140-400) K/mcL Neutrophils # 8.8 (1.6-8.9) K/mcL BMP 01/17/18 08:44 Sodium 131 L Potassium 4.2 Chloride 96 L Carbon Dioxide 26 BUN 19 Creatinine 0.81 Glucose 248 H Calcium 9.3 - ABG Interpretation ABG results: PT/INR, D-dimer PT 12.8 Seconds (9.4-12.1) H 01/16/18 23:13 - Impressions Impressions Abdomen/Pelvis CT 01/17/18 23:19 IMPRESSION: Gas containing and subcapsular fluid collections in the left and right hepatic lobes, as detailed above. While foci of gas may be postsurgical, however, cannot exclude superinfection and developing hepatic abscesses. Mild dilatation of the duodenum, presumably reactive adynamic ileus. Asymmetric urinary bladder wall thickening is new since 10/15/2017 PET-CT and may represent asymmetric contraction of the urinary bladder. Additionally, nondependent gas within the bladder is presumably related to instrumentation/Posadas catheterization. Consider correlation with urinalysis if there is concern for cystitis. Gas within the right rectus muscles, presumably postsurgical. No superficial soft tissue drainable fluid collection. Recommend attention on follow-up. Small right and trace left pleural effusions. Mild body wall edema. D/ / 01/17/2018 07:10:21 Lj Moore / Gayatri Smith Interpreting Provider: Lj Moore - Attending Attestation I examined this patient and my medical decision-making was reviewed with the Resident Physician on 01/17/18. I agree with the documented findings, disposition and treatment plan as described except to the extent set forth below. Mr Verduzco was admitted earlier this AM due to presumed pneumonia following a surgical procedure. Exam alert Comfortable at this time Mucus membranes dry Heart not tachy Edema present Agree with assessment and plan as above.
[2018-01-17] MEDS: Gabapentin 300 MG CAPSULE PO SCH ×2 (17:56→20:35)
[2018-01-17] MEDS: Insulin DETEMIR 100 UNIT/ML X5UNITS SQ SCH (20:35)
[2018-01-18] MEDS: Piperacillin/Tazobactam 3.375 GM in 0.9 % Sodium Chloride Mini Bag 100 ML IVPB SCH ×3 (00:29→16:34)
[2018-01-18 03:09] LABS: Basophils % 0.3 %; Eosinophils # 0.1 K/mcL (0.0-0.6); Eosinophils % 0.6 %; Hematocrit 28.5 % (37.5-50.1); Hemoglobin 9.4 g/dL (12.9-16.9); Immature Granulocytes % 1.1 % (0-4); Lymphocytes # 1.5 K/mcL (0.6-4.6); Mean Corpuscular Hemoglobin 30.3 pg (28.0-33.3); Mean Corpuscular Volume 91.9 fL (83.0-100.0); Mean Platelet Volume 9.8 fL (9.4-12.4); Monocytes # 1.6 K/mcL (0.0-1.3); Monocytes % 13.5 %; Neutrophils # 8.2 K/mcL (1.6-8.9); Nucleated Red Blood Cells 0.2 /100 WBC (0); Platelet Count 224 K/mcL (140-400); Red Cell Distribution Width 14.2 % (11.5-14.5); Segmented Neutrophils % 71.5 %
[2018-01-18 03:28] LABS: Alanine Aminotransferase 147 Units/L (7-52); Alkaline Phosphatase 127 Units/L (34-104); Aspartate Amino Transferase 26 Units/L (13-39); BUN/Creatinine Ratio 22 (6-26); Bilirubin,Total 0.5 mg/dL (0.3-1.0); Blood Urea Nitrogen 19 mg/dL (8-23); Calcium 8.8 mg/dL (8.6-10.3); Carbon Dioxide 27 mEq/L (23-29); Chloride 98 mEq/L (98-107); Globulin 3.1 g/dL (2.4-3.5); Glucose 222 mg/dL (70-105); Osmolality,Calculated 281 (280-300); Potassium 3.6 mEq/L (3.5-5.1); Sodium 131 mEq/L (136-145); Total Protein 6.1 g/dL (6.4-8.9); eGFR For African Americans > 60 (> 60); eGFR For Non-African Americans > 60 (> 60)
[2018-01-18] MEDS: *HR* OxyCODONE Immed Rel 5 MG TABLET PO PRN ×3 (04:49→21:37)
[2018-01-18] MEDS: Insulin LISPRO 300 UNITS/3 ML VIAL SQ SCH ×4 (08:51→21:37)
[2018-01-18] MEDS: Furosemide 40 MG/4 ML VIAL IVP SCH (08:52)
[2018-01-18] MEDS: hydroCHLOROthiazide 25 MG TABLET PO SCH (08:54)
[2018-01-18] MEDS: Gabapentin 300 MG CAPSULE PO SCH ×4 (08:54→21:37)
[2018-01-18] MEDS: Aspirin 81 MG TAB.CHEW PO SCH (08:54)
[2018-01-18] MEDS: Valsartan 160 MG TABLET PO SCH (08:54)
[2018-01-18] MEDS ORDERED: Isovue-370 500 ML INFUS..BTL IV ONE (09:36)
--- NOTE | 2018-01-18 10:46 | Internal Med Progress Note ---
<HermanravenBrandon garcia - Last Filed: 01/18/18 10:43> Date of Encounter: 01/18/18 Time of Encounter: 10:43 - Assessment and plan (1) Carcinoma of unknown primary Current Visit: Yes Status: Chronic Assessment and plan: - As below for liver cancer. (2) History of liver cancer Current Visit: Yes Status: Acute Assessment and plan: - s/p post a liver surgery at [facility] which family and patient reports removal of 3 lesions - Will request records from [facility]. - oncology consulted in the emergency room. Have not seen patient yet. - Findings on CT abd/pelvis of 3 areas of gas formation in the liver are likely post surgical. Will repeat scan today - Oncology note says stage IV cancer of unknown primary lesion. Hepatocellular CA given high AFP but also consider cholangiocarcinoma. - Subjective fevers could be a complication of surgery, however CT abdomen shows gas formation which could be secondary to post surgical changes. Afebrile overnight - Mild abdominal tenderness, no external signs of infection. Plan - Continue to monitor and treat as outpatient - Monitor for signs of post surgical complications - Continue vancomycin and zosyn day #2 for broad spectrum abx - Repeat CT scan today to assess for abscess formation vs surgical changes. (3) Type 2 diabetes mellitus Current Visit: Yes Status: Chronic Assessment and plan: Blood sugar most recently 222 on sliding scale insulin Most recent A1c of 9.2% on 01/05/18 Patient has moderate dose sliding scale insulin We will continue sliding scale insulin and adjust for optimal blood sugar control Qualifiers: Diabetes mellitus snf insulin use: with snf use Diabetes mellitus complication status: without complication Qualified Code(s): E11.9 - Type 2 diabetes mellitus without complications; Z79.4 - local intermodal truck driver (current) use of insulin; Z79.4 - detention (current) use of insulin; Z79.4 - detention ( current) use of insulin; Z79.4 - local intermodal truck driver (current) use of insulin (4) Pleural effusion Current Visit: Yes Status: Acute Assessment and plan: On chest Xray as above. (5) Anemia Current Visit: Yes Status: Acute Assessment and plan: H/H on presentation of 9.4/28.5, stable from previous of hemoglobin 10.7 he did receive 1 unit of packed red blood cells in the emergency room per oncology recommendation Etiology most likely postoperative blood loss Baseline hemoglobin 13-14 Patient is asymptomatic except for fatigue which is likely related to his known cancer and recent surgery No evidence of continued postoperative bleeding on abdominal CT Plan Continue to monitor for time being and transfuse as necessary Will obtain additional CT tomorrow Qualifiers: Anemia type: unspecified type Qualified Code(s): D64.9 - Anemia, unspecified (6) Generalized weakness Current Visit: Yes Status: Acute Assessment and plan: Multifactorial with anemia, cancer, recent surgery and HCAP. Treat as below. PT/ OT (7) HCAP (healthcare-associated pneumonia) Current Visit: Yes Status: Acute Assessment and plan: - Patient has subjective fevers. wet cough. shortness of breath. -CXR in ED showing layed pleural effusion on left, possible superimposed PNA vs atelectasis - Mild WBC elevation of 11.5. Vitals wnl. - Sputum and blood cultures pending - Legionella and strep negative. Plan - Will treat as HCAP and possible post surgical infection with vanc and zosyn. - O2 support. Nebs. (8) Edema extremities Current Visit: Yes Status: Acute Assessment and plan: -Family states patient received significant amount of fluids while at [facility]. - BNP 152 - No history of CHF. - Getting 40 lasix IV Qday - CXR with pleural effusion Plan - Will continue lasix and monitor for improvement - Consider echo if no improvement. (9) DVT prophylaxis Current Visit: Yes Status: Acute Assessment and plan: SCDs (10) Acute respiratory failure with hypoxia Current Visit: Yes Status: Resolved Assessment and plan: No home O2 requirement likely secondary to HCAP and pleural effusion as above. resolved, on room air - Time Spent With Patient Total time spent is greater than 50% in coordination of care (as documented) at patient's floor/unit and/or counseling patient: 25 - 35 minutes - Subjective Interval history: Patient seen and examined at bedside this morning. He states that he continues to feel "rough" but thinks it might be a little bit better. States he is still experiencing some aching abdominal pain located in the right upper quadrant. Denies any symptoms of fevers, chills, nausea, vomiting, chest pain, shortness of breath. - Constitutional Vitals: Temp Pulse Resp BP Pulse Ox 97.4 F L 82 18 126/69 94 01/18/18 10:28 01/18/18 10:28 01/18/18 10:28 01/18/18 10:28 01/18/18 10:28 Exam: Gen.: Vitals noted. No acute distress. AAOx3 HEENT: PERRL/EOMI, oropharynx clear, Normocephalic, atraumatic Cardiac: RRR, no murmur, +S1/S2 Pulmonary: CTA bilaterally, no wheezes, rales or rhonchi, equal chest expansion Abdomen: soft, mildly tender to palpation diffusely with most in right upper quadrant, BS noted, no guarding skin: Dressings covering well healing incisional anaya on abdomen. No signs of infection MSK: ROM intact, no joint swelling noted Extremities: no BLE edema, nontender calf, no cyanosis or clubbing Neuro: A&Ox3, moves all extremities, no focal deficits Psych: Appropriate mood and behavior Internal Medicine: Result - Labs CBC & Chem 7: 01/18/18 02:39 01/18/18 02:39 Labs: Short CBC 01/18/18 Range/Units 02:39 WBC 11.5 H (4.3-11.1) K/mcL Hgb 9.4 L (12.9-16.9) g/dL Hct 28.5 L (37.5-50.1) % Plt Count 224 (140-400) K/mcL Neutrophils # 8.2 (1.6-8.9) K/mcL BMP 01/18/18 02:39 Sodium 131 L Potassium 3.6 Chloride 98 Carbon Dioxide 27 BUN 19 Creatinine 0.86 Glucose 222 H Calcium 8.8 Liver Function 01/18/18 Range/Units 02:39 Total Bilirubin 0.5 (0.3-1.0) mg/dL AST 26 (13-39) Units/L ALT 147 H (7-52) Units/L Alkaline Phosphatase 127 H (34-104) Units/L Albumin 3.0 L (3.5-5.7) g/dL - ABG Interpretation ABG results: PT/INR, D-dimer PT 12.8 Seconds (9.4-12.1) H 01/16/18 23:13 - Impressions Impressions Abdomen/Pelvis CT 01/17/18 23:19 IMPRESSION: Gas containing and subcapsular fluid collections in the left and right hepatic lobes, as detailed above. While foci of gas may be postsurgical, cannot exclude superinfection and developing hepatic abscesses. Mild dilatation of the duodenum, presumably reactive adynamic ileus. Asymmetric urinary bladder wall thickening is new since 10/15/2017 PET-CT and may represent asymmetric contraction of the urinary bladder. Additionally, nondependent gas within the bladder is presumably related to instrumentation/Posadas catheterization. Consider correlation with urinalysis if there is concern for cystitis. Gas within the right rectus muscles, presumably postsurgical. No superficial soft tissue drainable fluid collection. Recommend attention on follow-up. Small right and trace left pleural effusions. Mild body wall edema. D/ / 01/17/2018 07:10:21 Lj Moore / Gayatri Smith Interpreting Provider: Lj Moore Consult Discharge Plan - Plan Referrals: [facility],PCP [Primary Care Provider] - <Cole Montalvo - Last Filed: 01/18/18 16:18> Date of Encounter: 01/18/18 - Assessment and plan (1) Acute respiratory failure with hypoxia Current Visit: Yes Status: Resolved (2) Pneumonia Current Visit: Yes Status: Suspected Qualifiers: Pneumonia type: due to other aerobic Gram-negative bacteria Laterality: left Lung location: lower lobe of lung Qualified Code(s): J15.6 - Pneumonia due to other Gram-negative bacteria (3) Type 2 diabetes mellitus Current Visit: Yes Status: Chronic Qualifiers: Diabetes mellitus terminal clerk insulin use: with snf use Diabetes mellitus complication status: without complication Qualified Code(s): E11.9 - Type 2 diabetes mellitus without complications; Z79.4 - detention (current) use of insulin; Z79.4 - local intermodal truck driver (current) use of insulin; Z79.4 - detention ( current) use of insulin; Z79.4 - detention (current) use of insulin (4) Carcinoma of unknown primary Current Visit: Yes Status: Chronic (5) Pleural effusion Current Visit: Yes Status: Acute (6) Anemia Current Visit: Yes Status: Chronic Qualifiers: Anemia type: other cause Other causes of anemia: chronic disease, neoplastic Qualified Code(s): D63.0 - Anemia in neoplastic disease (7) Generalized weakness Current Visit: Yes Status: Acute (8) History of liver cancer Current Visit: Yes Status: Chronic (9) HCAP (healthcare-associated pneumonia) Current Visit: Yes Status: Acute (10) Edema extremities Current Visit: Yes Status: Acute (11) DVT prophylaxis Current Visit: Yes Status: Acute - Time Spent With Patient Total time spent is greater than 50% in coordination of care (as documented) at patient's floor/unit and/or counseling patient: - Constitutional Vitals: Temp Pulse Resp BP Pulse Ox 98.8 F 64 16 115/71 93 01/18/18 15:36 01/18/18 15:36 01/18/18 15:36 01/18/18 15:36 01/18/18 15:36 Internal Medicine: Result - Labs CBC & Chem 7: 01/18/18 02:39 01/18/18 02:39 Labs: Short CBC 01/18/18 Range/Units 02:39 WBC 11.5 H (4.3-11.1) K/mcL Hgb 9.4 L (12.9-16.9) g/dL Hct 28.5 L (37.5-50.1) % Plt Count 224 (140-400) K/mcL Neutrophils # 8.2 (1.6-8.9) K/mcL BMP 01/18/18 02:39 Sodium 131 L Potassium 3.6 Chloride 98 Carbon Dioxide 27 BUN 19 Creatinine 0.86 Glucose 222 H Calcium 8.8 Liver Function 01/18/18 Range/Units 02:39 Total Bilirubin 0.5 (0.3-1.0) mg/dL AST 26 (13-39) Units/L ALT 147 H (7-52) Units/L Alkaline Phosphatase 127 H (34-104) Units/L Albumin 3.0 L (3.5-5.7) g/dL - ABG Interpretation ABG results: PT/INR, D-dimer PT 12.8 Seconds (9.4-12.1) H 01/16/18 23:13 - Impressions Impressions Abdomen/Pelvis CT 01/17/18 23:19 IMPRESSION: Gas containing and subcapsular fluid collections in the left and right hepatic lobes, as detailed above. While foci of gas may be postsurgical, cannot exclude superinfection and developing hepatic abscesses. Mild dilatation of the duodenum, presumably reactive adynamic ileus. Asymmetric urinary bladder wall thickening is new since 10/15/2017 PET-CT and may represent asymmetric contraction of the urinary bladder. Additionally, nondependent gas within the bladder is presumably related to instrumentation/Posadas catheterization. Consider correlation with urinalysis if there is concern for cystitis. Gas within the right rectus muscles, presumably postsurgical. No superficial soft tissue drainable fluid collection. Recommend attention on follow-up. Small right and trace left pleural effusions. Mild body wall edema. D/ / 01/17/2018 07:10:21 Lj Moore / Gayatri Smith Interpreting Provider: Lj Moore Abdomen/Pelvis CT 01/18/18 09:36 IMPRESSION: 1. Postoperative changes in the liver, on the left laterally and on the right inferolaterally, with perihepatic fluid collections containing gas. Overall, no significant interval change in size of the collections. The collections remain indeterminate, possibly resolving postoperative change versus abscess. 2. Trace right pleural effusion with improving bibasilar atelectasis. 3. Mild wall thickening involving the distal stomach and proximal duodenum. This likely represents reactive edematous changes. Stable trace perihepatic ascites and inflammatory changes in the pericolic gutter and retroperitoneum. D/ / 01/18/2018 10:48:45 Mook Stinson MD / lam Interpreting Provider: Mook Stinson MD - Attending Attestation I examined this patient and my medical decision-making was reviewed with the Resident Physician on 01/18/18. I agree with the documented findings, disposition and treatment plan as described except to the extent set forth below. Mr Verduzco is currently admitted with concern for HCAP and possible abdominal infection. He remains moderate to high risk due to potential for worsening clinical status. Mr Verduzco feels a little better today. He is tolerating abx. No fever. Still with some dyspnea. Pain is OK at this time. Exam Alert Comfortable Mucus membranes dry Heart not tachy No wheeze Edema present. I/P 1. Possible pneumonia 2. Repeat CT today to reassess fluid collections. Further diagnoses and plan as above.
[2018-01-18] MEDS: Insulin DETEMIR 100 UNIT/ML X5UNITS SQ SCH (21:37)
[2018-01-19] MEDS: Piperacillin/Tazobactam 3.375 GM in 0.9 % Sodium Chloride Mini Bag 100 ML IVPB SCH ×3 (01:11→16:25)
[2018-01-19] MEDS: *HR* OxyCODONE Immed Rel 5 MG TABLET PO PRN ×3 (04:07→21:56)
[2018-01-19 05:22] LABS: Basophils % 0.4 %; Eosinophils # 0.1 K/mcL (0.0-0.6); Eosinophils % 0.8 %; Hematocrit 29.3 % (37.5-50.1); Hemoglobin 9.7 g/dL (12.9-16.9); Immature Granulocytes % 2.2 % (0-4); Lymphocytes # 1.5 K/mcL (0.6-4.6); Lymphocytes % 14.7 %; Mean Corpuscular HGB Conc 33.1 g/dL (31.6-35.5); Mean Corpuscular Hemoglobin 30.4 pg (28.0-33.3); Mean Corpuscular Volume 91.8 fL (83.0-100.0); Mean Platelet Volume 9.6 fL (9.4-12.4); Monocytes # 1.5 K/mcL (0.0-1.3); Monocytes % 14.3 %; Neutrophils # 7.1 K/mcL (1.6-8.9); Nucleated Red Blood Cells 0.2 /100 WBC (0); Platelet Count 250 K/mcL (140-400); Red Blood Count 3.19 M/mcL (4.19-5.50); Red Cell Distribution Width 14.5 % (11.5-14.5); Segmented Neutrophils % 67.6 %
[2018-01-19 05:40] LABS: BUN/Creatinine Ratio 21 (6-26); Blood Urea Nitrogen 19 mg/dL (8-23); Calcium 8.7 mg/dL (8.6-10.3); Carbon Dioxide 27 mEq/L (23-29); Chloride 97 mEq/L (98-107); Glucose 181 mg/dL (70-105); Osmolality,Calculated 283 (280-300); Potassium 3.6 mEq/L (3.5-5.1); Sodium 133 mEq/L (136-145); eGFR For African Americans > 60 (> 60); eGFR For Non-African Americans > 60 (> 60)
[2018-01-19] MEDS: Insulin LISPRO 300 UNITS/3 ML VIAL SQ SCH ×4 (08:55→20:53)
[2018-01-19] MEDS: Furosemide 40 MG/4 ML VIAL IVP SCH (08:57)
[2018-01-19] MEDS: hydroCHLOROthiazide 25 MG TABLET PO SCH (08:57)
[2018-01-19] MEDS: Gabapentin 300 MG CAPSULE PO SCH ×4 (08:57→20:06)
[2018-01-19] MEDS: Aspirin 81 MG TAB.CHEW PO SCH (08:57)
[2018-01-19] MEDS: Valsartan 160 MG TABLET PO SCH (08:57)
--- NOTE | 2018-01-19 13:46 | Oncology Inp Consult Note ---
<AyersPhyllis Anthony - Last Filed: 01/20/18 09:22> Date of Encounter: 01/19/18 Time of Encounter: 13:00 Assessment and Plan (1) Anemia Status: Chronic Assessment and plan: Hgb 9.7 s/p 1 unit PRBC, hgb 8.3 on presentation. Check iron, ferritin, LDH, Hpatoglobin B12, folate Qualifiers: Anemia type: other cause Other causes of anemia: chronic disease, neoplastic Qualified Code(s): D63.0 - Anemia in neoplastic disease (2) HCAP (healthcare-associated pneumonia) Status: Acute Assessment and plan: CXR in ED showing layed pleural effusion on left, possible superimposed PNA vs atelectasis Sputum and blood cultures negative. Strep and Legionella negative Treating empiracally and post operatively with vanc/zosyn. 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 S/P SBRT liver lesions 2017. Now with biochemical and radiographic recurrence. S/P hepatic lesion resection on 01/12/2018 at [facility]-need to obtain op report and pathology review CT abdomen/pelvis reveals postoperative changes in the liver, on the left laterally and on the right inferolaterally, with perihepatic fluid collections containing gas. The collections remain indeterminate, possibly resolving postoperative change versus abscess. He remains afebrile with no leukocytosis or clinical sign of infection. Pain now manageable and controlled although still present. Continue to monitor, indeterminate whether CT correlates with post op change or abscess, clinical picture more consistent with post operative changes. Continue with management for pneumonia per primary team. - Data of Consult Patient: known to practice within the last 3 years Consult date: 01/19/18 Requesting Physician: Cole Montalvo DO Primary Care Provider: PCP [place] - Consult Narrative Reason for consult: adenocarcinoma of unknown primary, poorly differentiated History of present illness: Mr. Verduzco is a 67 year old male diagnosed with adenocarcinoma of unknown primary , poorly differentiated. 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 Completed SBRT to both nodules in November 2016. MRI abdomen with and without contrast 10/08/2017 showed new lesion adjacent to the treated right adjuvant 6 lesion. Segment 2 liver and left lobe has shown slight increase. He has radiographic and biochemical evidence of disease recurrence,with also increase in AFP 2091 Patient was referred to Dr. Analilia Lockett to assess if he was a candidate for surgery or RFA. Per patient he underwent resection of liver lesions and cholecystectomy on 01/12/2018. He was discharged home from [facility] on 2017. Shortly after returning him he experienced uncontrollable pain and generalized weakness which led to his presentation to [facility] Past Med Surg Social Fam HX - Past Medical History Medical history: arthritis, cancer, COPD, diabetes, hyperlipidemia, hypertension , liver disease Psychiatric history: no psych history - Past Surgical History Surgical History: appendectomy, orthopedic, other - Social History Smoking Status: Current every day smoker Packs per day: 2.5 Smokeless Tobacco Status: No Alcohol use: none Drug use: none - Family History Maternal Grandfather Living Status: Age at : 39 Hx Family Cancer: Yes (colon) Sister Living Status: Hx Family Cardiac Disorders: Yes (CHF) Medications and Allergies Aspirin 81 mg PO DAILY 08/14/16 [History] Valsartan [Diovan] 320 mg PO DAILY 08/14/16 [History] hydroCHLOROthiazide [Hydrochlorothiazide] 25 mg PO DAILY 08/14/16 [History] metFORMIN [Glucophage] 1,000 mg PO BIDWM 08/14/16 [History] Dapagliflozin Propanediol [Farxiga] 10 mg PO DAILY 09/20/16 [History] Liraglutide [Victoza 2-Justin] 1.8 mg SQ DAILY 09/20/16 [History] Lovastatin 40 mg PO DAILY 09/20/16 [History] Montelukast [Singulair] 10 mg PO DAILY 09/20/16 [History] [place]-3/Dha/Epa/Fish Oil [Fish Oil 1,000 mg Softgel] 1,000 mg PO DAILY 10/11/16 [History] Tiotropium [Spiriva] 1 cap IH DAILY 10/11/16 [History] Vitamin E 400 unit PO DAILY 10/11/16 [History] HYDROcodone/Acet 5/325 mg [[place] 5-325 mg] 1 - 2 tab PO Q4H PRN #120 tab [Rx] Insulin ASPART [NovoLOG] 6 - 14 units SQ TID PRN 06/25/17 [History] Insulin DETEMIR [Levemir] 30 unit SQ 0800 06/25/17 [History] Albuterol Sulfate [Ventolin Hfa] 2 puff IH Q6H PRN 01/18/18 [History] Docusate Sodium [Dok] 100 mg PO BID 01/18/18 [History] Etodolac 200 mg PO Q8H PRN 01/18/18 [History] Gabapentin [Neurontin] 300 mg PO QID 01/18/18 [History] Polyethylene Glycol 3350 [MiraLAX Powder Bulk 17.9 Oz] 1 scoop PO DAILY [History] Sennosides [Senna] 8.6 mg PO DAILY 01/18/18 [History] Ezetimibe [Zetia] 10 mg PO DAILY 01/19/18 [History] Metoprolol [Lopressor] 100 mg PO BID 01/19/18 [History] glipiZIDE [Glucotrol] 5 mg PO BID 01/19/18 [History] 3 Allergy/AdvReac Type Severity Reaction Status Date / Time bacitracin Allergy Rash Verified 10/22/17 08:11 [From Neosporin ([id number])] Neomycin Allergy Rash Verified 10/22/17 08:11 [From Neosporin ([id number])] polymyxin B Allergy Rash Verified 10/22/17 08:11 [From Neosporin ([id number])] Sulfa (Sulfonamide Allergy Rash Verified 10/22/17 08:11 Antibiotics) Constitutional: Present: anorexia, chills, fatigue, weakness Eyes: Absent: change in vision Nose, mouth and throat: Absent: dysphagia Cardiovascular: Absent: chest pain, irregular heart rhythm Respiratory: Present: cough, dyspnea Gastrointestinal: Present: abdominal pain, bloating. Absent: change in bowel habits, nausea, vomiting Additional comments: denies dysuria Musculoskeletal: Present: muscle weakness Integumentary: Absent: wounds Neurological: Absent: focal weakness, frequent falls Psychiatric: Absent: change in appetite Hematologic/Lymphatic: Present: as per HPI Oncology - Exam - Constitutional Vitals: Temp Pulse Resp BP Pulse Ox 98.4 F 67 20 140/68 98 01/19/18 07:35 01/19/18 07:35 01/19/18 07:35 01/19/18 07:35 01/19/18 08:50 General appearance: cooperative, no acute distress, no febrile - Head Head exam: Present: atraumatic - ENT ENT exam: Present: mucous membranes moist - Respiratory Respiratory exam: Present: CTAB. Absent: respiratory distress - Cardiovascular Cardiovascular exam: Present: RRR, +S1, +S2 - GI/Abdominal GI/Abdominal exam: Present: distended, normal bowel sounds, soft, tenderness Additional comments: post op tenderness, surgical incision to right upper abdomen s/p liver lesion resection - Extremities Exam Extremities exam: Present: normal inspection. Absent: calf tenderness - Neurological Exam Neurological exam: Present: alert, oriented X3, no focal deficits, strengths equal and symetr throughout - Psychiatric Psychiatric exam: Present: normal affect, normal mood - Skin Skin exam: Present: dry, normal color, warm Oncology - Results Labs: Short CBC 01/19/18 Range/Units 04:51 WBC 10.5 (4.3-11.1) K/mcL Hgb 9.7 L (12.9-16.9) g/dL Hct 29.3 L (37.5-50.1) % Plt Count 250 (140-400) K/mcL Neutrophils # 7.1 (1.6-8.9) K/mcL BMP 01/19/18 04:51 Sodium 133 L Potassium 3.6 Chloride 97 L Carbon Dioxide 27 BUN 19 Creatinine 0.90 Glucose 181 H Calcium 8.7 Consult Discharge Plan - Plan [facility] Care Provider[facility] - <Tammi Navarro S - Last Filed: 01/20/18 13:20> Date of Encounter: 01/20/18 - Data of Consult Requesting Physician: Cole Montalvo DO Primary Care Provider: PCP YAJAIRA - Consult Narrative History of present illness: Mr. Verduzco is a 67 year old male Oncology - Exam - Constitutional Vitals: Temp Pulse Resp BP Pulse Ox 97.6 F 67 12 137/81 93 01/19/18 14:42 01/19/18 14:42 01/19/18 14:42 01/19/18 14:42 01/19/18 14:42 Oncology - Results Labs: Short CBC 01/19/18 Range/Units 04:51 WBC 10.5 (4.3-11.1) K/mcL Hgb 9.7 L (12.9-16.9) g/dL Hct 29.3 L (37.5-50.1) % Plt Count 250 (140-400) K/mcL Neutrophils # 7.1 (1.6-8.9) K/mcL BMP 01/19/18 04:51 Sodium 133 L Potassium 3.6 Chloride 97 L Carbon Dioxide 27 BUN 19 Creatinine 0.90 Glucose 181 H Calcium 8.7 - Attending Attestation Initially diagnosed with 2 liver lesion 1 on the left one on the right lobe of the liver. Initial pathology showed possible cholangiocarcinoma. He had SBRT to 2 both liver lesions and disease was under control for 1 year 2. Had disease progression with the new lesion on the right lobe near the treated lesion. Also slight enlargement of the treated lesions. AFP was elevated slightly at 218 on 10/22/2017 Subsequently he was referred to [facility] where he had surgical resection of all 3 spots (2 on the right one on the left) on 01/12/2018 Started with the laparoscopy but he has to have open surgery with right upper quadrant incision 3. Re-admitted here last Friday on 01/16/2018. The CAT scans done at [place] on 01/17/2018 showed resection cavity consistent with postsurgical change Clinically no evidence of abscess. Neutrophils 8000. Blood cultures negative. Continue vancomycin and Zosyn. Blood cultures have been negative. Infectious disease was consulted Sent a message to Dr. Analilia Faulkner. We will update pathology once available. He also had cholecystectomy. Had a long discussion with him. Most of the abdominal pain is secondary to surgery. He should be starting to feel better within 1 week. We will follow him up as an outpatient
[2018-01-19 15:55] LABS: % Iron Saturation 4 % (20-55); Ferritin 783 ng/ml (20-250); Iron 11 mcg/dL (65-175); Lactate Dehydrogenase 211 Units/L (140-271); Transferrin 179 mg/dL (203-362)
[2018-01-19 16:04] LABS: Folate > 22.3 ng/mL (3.0-16.0); Vitamin B12 > 1500 pg/mL (250-1100)
--- NOTE | 2018-01-19 18:25 | Internal Med Progress Note ---
Date of Encounter: 01/19/18 Time of Encounter: 08:00 - Assessment and plan (1) Acute respiratory failure with hypoxia Current Visit: Yes Status: Resolved Assessment and plan: Doing better Currently off oxygen. (2) Pneumonia Current Visit: Yes Status: Suspected Assessment and plan: CXR had possible pneumonia. He has been receiving IV abx. Most likely had a large component of volume overload. Will complete course of abx. Qualifiers: Pneumonia type: due to other aerobic Gram-negative bacteria Laterality: left Lung location: lower lobe of lung Qualified Code(s): J15.6 - Pneumonia due to other Gram-negative bacteria (3) Type 2 diabetes mellitus Current Visit: Yes Status: Chronic Assessment and plan: Most recent A1c of 9.2% on 01/05/18 Patient has moderate dose sliding scale insulin We will continue sliding scale insulin and adjust for optimal blood sugar control Qualifiers: Diabetes mellitus correction insulin use: with correction use Diabetes mellitus complication status: without complication Qualified Code(s): E11.9 - Type 2 diabetes mellitus without complications; Z79.4 - half-way (current) use of insulin; Z79.4 - long term care administrator (current) use of insulin; Z79.4 - half-way ( current) use of insulin; Z79.4 - long term care administrator (current) use of insulin (4) Carcinoma of unknown primary Current Visit: Yes Status: Chronic Assessment and plan: - As below for liver cancer. (5) Pleural effusion Current Visit: Yes Status: Acute Assessment and plan: Has been diuresing and clinically improved. (6) Anemia Current Visit: Yes Status: Chronic Assessment and plan: H/H on presentation of 9.4/28.5, stable from previous of hemoglobin 10.7 he did receive 1 unit of packed red blood cells in the emergency room per oncology recommendation Etiology most likely postoperative blood loss Baseline hemoglobin 13-14 Patient is asymptomatic except for fatigue which is likely related to his known cancer and recent surgery No evidence of continued postoperative bleeding on abdominal CT Plan Continue to monitor for time being and transfuse as necessary Seen by oncology as well. Qualifiers: Anemia type: other cause Other causes of anemia: chronic disease, neoplastic Qualified Code(s): D63.0 - Anemia in neoplastic disease (7) Generalized weakness Current Visit: Yes Status: Acute Assessment and plan: Multifactorial with anemia, cancer, recent surgery and HCAP. Treat as below. PT/ OT (8) History of liver cancer Current Visit: Yes Status: Chronic Assessment and plan: - s/p post a liver surgery at [facility] which family and patient reports removal of 3 lesions - Will request records from [facility]. - oncology consulted in the emergency room. Have not seen patient yet. - Findings on CT abd/pelvis of 3 areas of gas formation in the liver are likely post surgical. Will repeat scan today - Oncology note says stage IV cancer of unknown primary lesion. Hepatocellular CA given high AFP but also consider cholangiocarcinoma. - Subjective fevers could be a complication of surgery, however CT abdomen shows gas formation which could be secondary to post surgical changes. Afebrile overnight - Mild abdominal tenderness, no external signs of infection. Plan - Continue to monitor and treat as outpatient - Monitor for signs of post surgical complications - Continue vancomycin and zosyn day #2 for broad spectrum abx - Repeat CT unchanged. Spoke with Dr. Turcios at [facility] - pt requests to be inpatient at [facility] Will get ID eval first. (9) DVT prophylaxis Current Visit: Yes Status: Acute Assessment and plan: SCDs - Time Spent With Patient Total time spent is greater than 50% in coordination of care (as documented) at patient's floor/unit and/or counseling patient: - Subjective Interval history: Mr Verduzco is currently admitted for presumed pneumonia and fluid overload. He remains moderate to high risk due to potential for worsening clinical status. Mr Verduzco is eating breakfast. He is breathing better. No fever. No worsened pain. Thinks edema improved. - Constitutional Vitals: Temp Pulse Resp BP Pulse Ox 97.6 F 67 12 137/81 93 01/19/18 14:42 01/19/18 14:42 01/19/18 14:42 01/19/18 14:42 01/19/18 14:42 General appearance: Present: A&O X 3, answers questions appropriately - Head Head exam: Present: normocephalic - Eye Eye exam: Present: conjuntiva pink - ENT ENT exam: Present: mucous membranes moist - Respiratory Respiratory exam: Present: rhonchi. Absent: rales, wheezes Additional comments: Lungs improving - Cardiovascular Cardiovascular exam: Present: RRR. Absent: tachycardia - GI/Abdominal GI/Abdominal exam: Present: soft, tenderness - Extremities Exam Extremities exam: Present: warm. Absent: pedal edema, tenderness - Neurological Exam Neurological exam: Present: alert, oriented X3 - Skin Skin exam: Present: dry, warm Internal Medicine: Result - Labs CBC & Chem 7: 01/19/18 04:51 01/19/18 04:51 Labs: Short CBC 01/19/18 Range/Units 04:51 WBC 10.5 (4.3-11.1) K/mcL Hgb 9.7 L (12.9-16.9) g/dL Hct 29.3 L (37.5-50.1) % Plt Count 250 (140-400) K/mcL Neutrophils # 7.1 (1.6-8.9) K/mcL BMP 01/19/18 04:51 Sodium 133 L Potassium 3.6 Chloride 97 L Carbon Dioxide 27 BUN 19 Creatinine 0.90 Glucose 181 H Calcium 8.7 - ABG Interpretation ABG results: PT/INR, D-dimer PT 12.8 Seconds (9.4-12.1) H 01/16/18 23:13 Consult Discharge Plan - Plan [facility]errals: [facility] [Primary Care Provider] -
[2018-01-19] MEDS: Insulin DETEMIR 100 UNIT/ML X5UNITS SQ SCH (20:53)
[2018-01-20] MEDS: Piperacillin/Tazobactam 3.375 GM in 0.9 % Sodium Chloride Mini Bag 100 ML IVPB SCH ×2 (00:12→08:31)
[2018-01-20 07:32] LABS: BUN/Creatinine Ratio 22 (6-26); Blood Urea Nitrogen 20 mg/dL (8-23); Calcium 8.9 mg/dL (8.6-10.3); Carbon Dioxide 29 mEq/L (23-29); Chloride 96 mEq/L (98-107); Glucose 164 mg/dL (70-105); Magnesium 1.8 mg/dL (1.6-2.6); Osmolality,Calculated 286 (280-300); Potassium 3.6 mEq/L (3.5-5.1); Sodium 135 mEq/L (136-145); eGFR For African Americans > 60 (> 60); eGFR For Non-African Americans > 60 (> 60)
[2018-01-20 08:07] LABS: Hemoglobin 10.3 g/dL (12.9-16.9); Mean Corpuscular HGB Conc 33.2 g/dL (31.6-35.5); Mean Corpuscular Hemoglobin 31.1 pg (28.0-33.3); Mean Corpuscular Volume 93.7 fL (83.0-100.0); Mean Platelet Volume 9.8 fL (9.4-12.4); Platelet Count 283 K/mcL (140-400); Red Blood Count 3.31 M/mcL (4.19-5.50); Red Cell Distribution Width 14.5 % (11.5-14.5)
[2018-01-20] MEDS: Insulin LISPRO 300 UNITS/3 ML VIAL SQ SCH ×5 (08:31→20:12)
[2018-01-20] MEDS: Sennosides 8.6 MG TABLET PO SCH (08:32)
[2018-01-20] MEDS: Gabapentin 300 MG CAPSULE PO SCH ×4 (08:32→20:11)
[2018-01-20] MEDS: Aspirin 81 MG TAB.CHEW PO SCH (08:32)
[2018-01-20] MEDS: hydroCHLOROthiazide 25 MG TABLET PO SCH (08:32)
[2018-01-20] MEDS: Valsartan 160 MG TABLET PO SCH (08:32)
[2018-01-20] MEDS: Furosemide 40 MG TABLET PO SCH (08:32)
[2018-01-20] MEDS: Tiotropium 18 MCG inhalation IH SCH (08:37)
--- NOTE | 2018-01-20 12:01 | Infectious Disease Consult ---
Date of Encounter: 01/20/18 Time of Encounter: 12:00 Assessment and Plan (1) Intra-abdominal fluid collection Status: Acute Assessment and plan: The patient presented with no SIRS criteria. CT of the abdomen and pelvis showed gas-containing subcapsular fluid collections in the left and right hepatic lobes, which may be post-surgical vs. developing hepatic abscesses. Repeat CT scan 01/18/18 essentially unchanged. Etiology unclear: Post-op changes vs. abscesses. The patient had no SIRS criteria. Antibiotics have already been started. Consider IR consult to see if they can aspirate the fluid collections and send for cell count with differential, protein, glucose, LDH, and culture (aerobic and anaerobic). If they are able to aspirate them, recommend stopping IV antibiotics for at least 48 hours, observing off antibiotics, and then proceeding with aspiration of the fluid collections. While off antibiotics, if the patient becomes febrile or clinically worsens, get blood cultures x 2 sets and re-start empiric IV antibiotics. (2) HCAP (healthcare-associated pneumonia) Status: Suspected Assessment and plan: CXR showed layering effusions with left base opacity concerning for atelectasis vs. PNA. CT of the abdomen and pelvis showed small right and trace left pleural effusions with associated basilar atelectasis with clostered nodular appearance at the lung bases, presumably infectious or inflammatory, but similar to prior exam in 03/2017. Low index of suspicion for infectious etiology given the lack of sepsis criteria. Observe off antibiotics. (3) History of liver cancer Status: Chronic Assessment and plan: Diagnosed in 2016. Status post radiation therapy 11/2016. Primary source unclear: hepatocellular carcinoma vs. cholangiocarcinoma. Progression of disease noted in September 2017. Status post liver resection/mass removal with cholecystectomy 01/12/18 at [facility]. Hem/Onc consulted and following. (4) Type 2 diabetes mellitus Status: Chronic Assessment and plan: Recommend aggressive glucose monitoring and treatment. Management per the primary team. 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 use: with intermediate use Diabetes mellitus complication status: without complication Qualified Code(s): E11.9 - Type 2 diabetes mellitus without complications; Z79.4 - intermodal dispatcher (current) use of insulin; Z79.4 - [facility] (current) use of insulin; Z79.4 - intermodal dispatcher ( current) use of insulin; Z79.4 - intermodal dispatcher (current) use of insulin (5) PVD (peripheral vascular disease) Status: Acute Infectious Disease HPI - Data of Consult Patient: new to practice Consult date: 01/20/18 Requesting Physician: Jose Miguel Cain MD [facility] - Consult Narrative Reason for consult: Intra-abdominal fluid collections History of present illness: Mr. Verduzco is a 67 year old male with past medical history of stage IV adenocarcinoma diagnosed in 2016 status post radiation therapy in November 2016 with unknown primary source, hypertension, diabetes, COPD, PVD, status post liver resection and cholecystectomy on January 12. The patient was admitted to the hospital January 16 for pleural effusion, weakness, anemia, and liver cancer. We are consulted January 20 for further recommendations regarding intra-abdominal fluid collections. Briefly, the patient's a 67-year-old male with past medical history as stated above. The patient was diagnosed with stage IV adenocarcinoma of the liver back in 2016. He was noted to have a new lesion on the liver and progression of the previously noted lesions on MRI in September 2017. He was referred to a surgeon at [facility] and underwent a cholecystectomy with liver mass removal last Friday. He stated the hospital until Friday when he decided to leave because he does not like the nursing staff there. He states overall he did not feel very well when he left the hospital, but he did not want to stay there any longer. He decided to come to our emergency department because he felt bad and was aching all over and having abdominal pain. Upon arrival, the patient was afebrile and hemodynamically stable. Laboratory studies revealed a normal white blood cell count. LT were mildly elevated. He had a chest x-ray that showed a new small layering effusion with left base opacity concerning for atelectasis versus pneumonia. He also had a CT of the abdomen and pelvis that showed gas containing and subcapsular fluid collections in the left and right hepatic lobes searching for postop changes versus developing hepatic abscesses. There was also noted to be mild dilatation of the duodenum, presumably reactive adynamic ileus. He was also noted to have asymmetric urinary bladder wall thickening new since his previous PET/CT scan in September as well as nondependent gas within the bladder that was presumably related to instrumentation/Posadas catheterization. There is also noted to be gas within the right rectus muscle, presumably postsurgical, and small right and trace left pleural effusions. The patient's oncologist was contacted and recommended a transfusion of one unit of packed red cells for hemoglobin of 8.3 and admission to the hospital for further evaluation. Since admission, the patient has remained afebrile and hemodynamically stable. His white blood cell count has been minimally elevated at 11.8 thousand with a normal differential. His urinalysis was negative. He had a repeat CT the abdomen and pelvis on January 18 that was essentially unchanged. His LFTs are improved. He has been on vancomycin and Zosyn since January 17. We have been asked to evaluate and make further recommendations. During my exam today, the patient endorses a history as stated above. States that overall he did not fill very well and left [facility], but he did not stay there any longer. He denies any fevers or rigors, but does endorse some subjective chills. He denies any chest pain. He does report some shortness of breath, but denies any cough. Denies any congestion, earache, or sore throat. He does report that his throat is irritated due to being intubated for his surgery last week. He denies any nausea or vomiting or diarrhea. He states that he has right upper quadrant abdominal pain, worse with movement or coughing. He denies any redness or drainage from the surgical sites. He states his appetite is okay. He denies any urinary complaints. He reports chronic back pain and is at baseline. He otherwise denies any extremity back or joint pain. He denies any oral thrush or new skin lesions. The patient lives at home with his and [id number]. He reports they have cats at home. He denies recent travel. 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 He smokes about 2 and half packs of cigarettes per day, but denies any illicit drug use. He states he was a heavy drinker until last September when he found out about his cancer and was drinking 12-18 beers per day every day until then. He states he has not had a drop of alcohol since then. CC: Jose Miguel Cain MD Past Med Surg Social Fam HX - Past Medical History Attestation: Yes The following information was validated with the patient. Source: old records reviewed, nursing notes reviewed Medical history: arthritis, cancer (Stage IV adenocarcinoma s/p radiation therapy 11/2016 s/p liver resection and cholecystectomy 01/2018), COPD, diabetes, hyperlipidemia, hypertension, liver disease Psychiatric history: no psych history - Past Surgical History Surgical History: appendectomy, orthopedic, other (Back surgery with hardware) - Social History Smoking Status: Current every day smoker Packs per day: 2.5 Smokeless Tobacco Status: No Alcohol use: none Drug use: none Occupational status: retired Current living situation: Home, With Family Activity Level: Independent ambulation Recent Out of Country Travel Within the Last 8 Weeks: No Exposure or Possible Exposure to Illness During Travel: No - Family History Maternal Grandfather Living Status: Age at : 39 Hx Family Cancer: Yes (colon) Sister Living Status: Hx Family Cardiac Disorders: Yes (CHF) Infectious Disease-CN:Meds Aspirin 81 mg PO DAILY 08/14/16 [History] Valsartan [Diovan] 320 mg PO DAILY 08/14/16 [History] hydroCHLOROthiazide [Hydrochlorothiazide] 25 mg PO DAILY 08/14/16 [History] metFORMIN [Glucophage] 1,000 mg PO BIDWM 08/14/16 [History] Dapagliflozin Propanediol [Farxiga] 10 mg PO DAILY 09/20/16 [History] Liraglutide [Victoza 2-Justin] 1.8 mg SQ DAILY 09/20/16 [History] Lovastatin 40 mg PO DAILY 09/20/16 [History] Montelukast [Singulair] 10 mg PO DAILY 09/20/16 [History] Hernshaw-3/Dha/Epa/Fish Oil [Fish Oil 1,000 mg Softgel] 1,000 mg PO DAILY 10/11/16 [History] Tiotropium [Spiriva] 1 cap IH DAILY 10/11/16 [History] Vitamin E 400 unit PO DAILY 10/11/16 [History] HYDROcodone/Acet 5/325 mg [[place] 5-325 mg] 1 - 2 tab PO Q4H PRN #120 tab [Rx] Insulin ASPART [NovoLOG] 6 - 14 units SQ TID PRN 06/25/17 [History] Insulin DETEMIR [Levemir] 30 unit SQ 0800 06/25/17 [History] Albuterol Sulfate [Ventolin Hfa] 2 puff IH Q6H PRN 01/18/18 [History] Docusate Sodium [Dok] 100 mg PO BID 01/18/18 [History] Etodolac 200 mg PO Q8H PRN 01/18/18 [History] Gabapentin [Neurontin] 300 mg PO QID 01/18/18 [History] Polyethylene Glycol 3350 [MiraLAX Powder Bulk 17.9 Oz] 1 scoop PO DAILY [History] Sennosides [Senna] 8.6 mg PO DAILY 01/18/18 [History] Ezetimibe [Zetia] 10 mg PO DAILY 01/19/18 [History] Metoprolol [Lopressor] 100 mg PO BID 01/19/18 [History] glipiZIDE [Glucotrol] 5 mg PO BID 01/19/18 [History] 3 Allergy/AdvReac Type Severity Reaction Status Date / Time bacitracin Allergy Rash Verified 10/22/17 08:11 [From Neosporin ([id number])] Neomycin Allergy Rash Verified 10/22/17 08:11 [From Neosporin ([id number])] polymyxin B Allergy Rash Verified 10/22/17 08:11 [From Neosporin ([id number])] Sulfa (Sulfonamide Allergy Rash Verified 10/22/17 08:11 Antibiotics) All systems: reviewed and no additional remarkable complaints except as stated Exam - Constitutional Vitals: Temp Pulse Resp BP Pulse Ox 97.6 F 59 16 132/73 96 01/20/18 11:13 01/20/18 11:13 01/20/18 11:13 01/20/18 11:13 01/20/18 11:13 General appearance: cooperative, no acute distress, obese - Head Head exam: Present: atraumatic, normal inspection, normocephalic - Eye Eye exam: Present: EOMI, normal appearance, PERRL Pupils: Present: normal accommodation - ENT ENT exam: Present: mucous membranes moist - Neck Neck exam: Present: normal inspection - Respiratory Respiratory exam: Present: CTAB. Absent: rales, respiratory distress, rhonchi, wheezes - Cardiovascular Cardiovascular exam: Present: RRR, +S1, +S2 - GI/Abdominal GI/Abdominal exam: Present: distended, normal bowel sounds, soft, tenderness ( RUQ) Additional comments: RUG surgical incision without redness, warmth, or drainage. Wound edges are well -approximated with Nankin-alvarado. Previous drain site with scant serous drainage. Tenderness noted with palpation of the RUQ and RLQ. Stab incisions x2 with Nankin -alvarado without redness, drainage, or dehiscence. - Extremities Exam Extremities exam: Present: normal inspection. Absent: joint swelling, pedal edema, tenderness - Neurological Exam Neurological exam: Present: alert, oriented X3, no focal deficits - Psychiatric Psychiatric exam: Present: normal affect, normal mood - Skin Skin exam: Present: dry, intact, normal color, warm Infectious Disease CN: Results - Labs CBC & Chem 7: 01/20/18 06:44 01/20/18 06:44 Cultures: Cultures 01/17/18 15:05 Sputum Culture - Final Sputum 01/17/18 06:20 Legionella Antigen - Final Urine,Clean Catch Streptococcus pneumoniae Antigen (M - Final Consult Discharge Plan - Plan [facility]errals: [facility] [Primary Care Provider] - - Attending Attestation I examined this patient and my medical decision-making was reviewed with the Resident Physician. I agree with the documented findings, disposition and treatment plan as described except to the extent set forth below. This is an addendum to original report dictated by Edda Solano CNP. Please refer to Usman hensley for full details. Patient is a 67-year-old gentleman admitted to [facility] on January 16 with generalized weakness, we are consulted on January 20 for fluid collection concern for intra- abdominal abscesses. Patient is a 67-year-old gentleman with past medical history ago that apparently has adenocarcinoma stage IV that was diagnosed a year ago. Primary source is not known. Patient underwent radiation therapy which is likely palliative but I am not sure. Patient apparently was found to have a new lesion on the liver and underwent hepatic resection and cholecystectomy on January 12 down in [place]. Patient was discharged on January 16. I am not sure the patient was discharged or he signed out AMA. Exact information is not clear. Patient apparently decided to come to the ER here where he was just feeling weak and tired had no energy. There was no real specific complaints. Since admission patient has been afebrile, heart rate has been within normal limit. Presenting labs showed a WBC of 11.1 with normal differential. Rest of the labs showed anemia with a hemoglobin of 8.3. Normal kidney function. Hyponatremia. Elevated ALT and alkaline phosphatase 222 and 119 respectively. A UA was obtained which was negative. Patient had a chest x-ray done which read as small layering left pleural effusion with left basilar opacity that may reflect atelectasis or pneumonia. A CT of the abdomen pelvis revealed postoperative changes in the liver, on the left laterally and on the right inferior laterally, with perihepatic fluid collection containing gas. Overall no significant interval change in size of the collection. The collections remains indeterminate possibly resolving postoperative changes versus abscess. Trace right pleural effusion with improving bibasilar atelectasis. Mild wall thickening involving the distal stomach and proximal duodenum that is like her presenting reactive erythematosus changes. Patient was started empirically on vancomycin and Zosyn. On physical exam patient appears comfortable sitting up in bed. He states he is having right upper quadrant abdominal pain. Sclerae nonicteric lungs decreased breath sounds at the bases abdomen distended there is no peritoneal signs surgical noted. He has ascites though. Extremities are perfusion Assessment and plan Adenocarcinoma with metastases to the liver primary source not known Status post hepatic resection and cholecystectomy on January 12 Path report pending Bilateral pleural effusion pneumonia and this likely There is 2 fluid collections with air in the liver. I spoke with radiology and went over both images. The one fluid collection that is proximal appears to be a discrete borders and likely a seroma but no one by the rib cage he states look hazy and going into the liver and he thinks is abscesses more likely. Currently patient on vancomycin and Zosyn. I spoke with the hospitalist team and asked him to get IR to tap the lateral fluid collection and sent for cell count, protein, LDH, Gram stain and cultures aerobic and anaerobic.
[2018-01-20] MEDS: *HR* OxyCODONE Immed Rel 5 MG TABLET PO PRN ×2 (12:06→20:11)
--- NOTE | 2018-01-20 15:49 | Electrocardiograph Report ---
[address] [place], [place] [address] Test Date: 2018-01-17 Pat Name: Paul Verduzco Department: 102 Room: 3A Gender: M Personal Banker: : [id number] Requested By: Cole Montalvo Order Number: [id number] Reading MD: Fabiano Carlos Measurements Intervals [place] Rate: 78 P: 91 NV: 186 QRS: 63 QRSD: 114 T: -3 QT: 412 QTc: 446 Interpretive Statements SINUS RHYTHM POSSIBLE INFERIOR MYOCARDIAL INFARCTION, OF INDETERMINATE AGE Electronically Signed On 01-20-2018 15:47:43 EDT by Fabiano Carlos
--- NOTE | 2018-01-20 17:30 | Internal Med Progress Note ---
Date of Encounter: 01/20/18 Time of Encounter: 17:27 - Assessment and plan (1) Acute respiratory failure with hypoxia Current Visit: Yes Status: Resolved Assessment and plan: Doing better Currently off oxygen. - Was on Vanc/Zosyn, now being held (01/20) - to monitor if true infections. Infectious disease was consulted in regards to fluid collection in abdomen and liver. Antibiotics are being held. Will monitor patient. (2) Pneumonia Current Visit: Yes Status: Suspected Assessment and plan: CXR had possible pneumonia. He has been receiving IV abx. Most likely had a large component of volume overload. Antibiotics held for monitoring. Qualifiers: Pneumonia type: due to other aerobic Gram-negative bacteria Laterality: left Lung location: lower lobe of lung Qualified Code(s): J15.6 - Pneumonia due to other Gram-negative bacteria (3) History of liver cancer Current Visit: Yes Status: Chronic Assessment and plan: - s/p post a liver surgery at [facility] which family and patient reports removal of 3 lesions - Will request records from [facility] [place]. - oncology consulted in the emergency room. Have not seen patient yet. - Findings on CT abd/pelvis of 3 areas of gas formation in the liver are likely post surgical. Will repeat scan today - Oncology note says stage IV cancer of unknown primary lesion. Hepatocellular CA given high AFP but also consider cholangiocarcinoma. - Subjective fevers could be a complication of surgery, however CT abdomen shows gas formation which could be secondary to post surgical changes. Afebrile overnight Plan - Continue to monitor and treat as outpatient - Vanc/Zosyn held 01/20 for monitoring - Repeat CT unchanged. - Conversation with Dr. Turcios at [facility] - pt requests to be inpatient at [facility] - Patient declines aspirating fluid collections at this time. He is willing to re-visit this discussion tomorrow. (4) Pleural effusion Current Visit: Yes Status: Acute Assessment and plan: Has been diuresing and clinically improved. 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 (7) Anemia Current Visit: Yes Status: Chronic Assessment and plan: H/H on presentation of 9.4/28.5, stable from previous of hemoglobin 10.7 he did receive 1 unit of packed red blood cells in the emergency room per oncology recommendation Etiology most likely postoperative blood loss Baseline hemoglobin 13-14 Patient is asymptomatic except for fatigue which is likely related to his known cancer and recent surgery No evidence of continued postoperative bleeding on abdominal CT Plan Continue to monitor for time being and transfuse as necessary Seen by oncology as well. Qualifiers: Anemia type: other cause Other causes of anemia: chronic disease, neoplastic Qualified Code(s): D63.0 - Anemia in neoplastic disease (8) Generalized weakness Current Visit: Yes Status: Acute Assessment and plan: Multifactorial with anemia, cancer, recent surgery and HCAP. Treat as below. PT/ OT (9) DVT prophylaxis Current Visit: Yes Status: Acute Assessment and plan: SCDs - Time Spent With Patient Total time spent is greater than 50% in coordination of care (as documented) at patient's floor/unit and/or counseling patient: - Subjective Interval history: Patient has preseumed pneumonia and fluid overload. No acute events. Patient states his pain is feeling a little better. Edema still present but states is a little better as well. - Constitutional Vitals: Temp Pulse Resp BP Pulse Ox 97.8 F 61 19 152/81 94 01/20/18 15:30 01/20/18 15:30 01/20/18 15:30 01/20/18 15:30 01/20/18 15:30 General appearance: Present: A&O X 3, answers questions appropriately Exam: - Head Head exam: Present: normocephalic - Eye Eye exam: Present: conjuntiva pink - ENT ENT exam: Present: mucous membranes moist - Respiratory Respiratory exam: Present: rhonchi. Absent: rales, wheezes - Cardiovascular Cardiovascular exam: Present: RRR. Absent: tachycardia - GI/Abdominal GI/Abdominal exam: Present: soft, tenderness - Extremities Exam Extremities exam: Present: warm. Absent: pedal edema, tenderness - Neurological Exam Neurological exam: Present: alert, oriented X3 - Skin Skin exam: Present: dry, warm Internal Medicine: Result - Labs CBC & Chem 7: 01/20/18 06:44 01/20/18 06:44 Labs: Short CBC 01/20/18 Range/Units 06:44 WBC 11.3 H (4.3-11.1) K/mcL Hgb 10.3 L (12.9-16.9) g/dL Hct 31.0 L (37.5-50.1) % Plt Count 283 (140-400) K/mcL BMP 01/20/18 06:44 Sodium 135 L Potassium 3.6 Chloride 96 L Carbon Dioxide 29 BUN 20 Creatinine 0.89 Glucose 164 H Calcium 8.9 - ABG Interpretation ABG results: PT/INR, D-dimer PT 12.8 Seconds (9.4-12.1) H 01/16/18 23:13 Consult Discharge Plan - Plan Referrals: [facility],PCP [Primary Care Provider] -
[2018-01-20] MEDS: Insulin DETEMIR 100 UNIT/ML X5UNITS SQ SCH (20:11)
[2018-01-21] MEDS: *HR* OxyCODONE Immed Rel 5 MG TABLET PO PRN ×3 (04:34→17:53)
[2018-01-21 07:00] LABS: Basophils % 0.2 %; Eosinophils # 0.2 K/mcL (0.0-0.6); Eosinophils % 1.2 %; Hematocrit 29.2 % (37.5-50.1); Hemoglobin 9.5 g/dL (12.9-16.9); Immature Granulocytes % 0.9 % (0-4); Lymphocytes # 1.7 K/mcL (0.6-4.6); Lymphocytes % 13.2 %; Mean Corpuscular HGB Conc 32.5 g/dL (31.6-35.5); Mean Corpuscular Hemoglobin 30.2 pg (28.0-33.3); Mean Corpuscular Volume 92.7 fL (83.0-100.0); Mean Platelet Volume 9.7 fL (9.4-12.4); Monocytes # 1.1 K/mcL (0.0-1.3); Monocytes % 8.7 %; Neutrophils # 9.7 K/mcL (1.6-8.9); Platelet Count 285 K/mcL (140-400); Red Blood Count 3.15 M/mcL (4.19-5.50); Red Cell Distribution Width 14.3 % (11.5-14.5); Segmented Neutrophils % 75.8 %
[2018-01-21 07:16] LABS: BUN/Creatinine Ratio 24 (6-26); Blood Urea Nitrogen 19 mg/dL (8-23); Calcium 8.8 mg/dL (8.6-10.3); Carbon Dioxide 30 mEq/L (23-29); Chloride 95 mEq/L (98-107); Glucose 111 mg/dL (70-105); Osmolality,Calculated 279 (280-300); Potassium 3.5 mEq/L (3.5-5.1); Sodium 133 mEq/L (136-145); eGFR For African Americans > 60 (> 60); eGFR For Non-African Americans > 60 (> 60)
--- NOTE | 2018-01-21 07:37 | Internal Med Progress Note ---
Date of Encounter: 01/21/18 Time of Encounter: 07:35 - Assessment and plan (1) Acute respiratory failure with hypoxia Current Visit: Yes Status: Resolved Assessment and plan: Second to fluid overload and possibly a pneumonia. Doing better - Does not require oxygen. Though patient overnight placed 2L just in case, he is not hypoxic. - Was on Vanc/Zosyn, is being held (01/20) - to monitor if true infections. ID following, recommendations appreciated on antibiotic use. (2) Pneumonia Current Visit: Yes Status: Suspected Assessment and plan: CXR had possible pneumonia. Was on Vanc/Sozyn Antibiotics held for monitoring, if patient has true infections. Qualifiers: Pneumonia type: due to other aerobic Gram-negative bacteria Laterality: left Lung location: lower lobe of lung Qualified Code(s): J15.6 - Pneumonia due to other Gram-negative bacteria (3) History of liver cancer Current Visit: Yes Status: Chronic Assessment and plan: - s/p post a liver surgery at [facility] which family and patient reports removal of 3 lesions - Will request records from [facility]. - oncology consulted in the emergency room. Have not seen patient yet. - Findings on CT abd/pelvis of 3 areas of gas formation in the liver are likely post surgical. Will repeat scan today - Oncology note says stage IV cancer of unknown primary lesion. Hepatocellular CA given high AFP but also consider cholangiocarcinoma. - Subjective fevers could be a complication of surgery, however CT abdomen shows gas formation which could be secondary to post surgical changes. Afebrile overnight Plan - Vanc/Zosyn held 01/20 for monitoring - Repeat CT unchanged. - Conversation with Dr. Turcios at [facility] - Would like fluid pt requests to be inpatient at [facility] - Patient is willing to have aspiration today, initially reluctant to do so. IR to see patient today. (4) Pleural effusion Current Visit: Yes Status: Acute Assessment and plan: Has been diuresing and clinically improved. Continue Lasix and HCTZ - Will evaluate if patient can have Lasix discontinued on discharge. 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 (7) Anemia Current Visit: Yes Status: Chronic Assessment and plan: H/H on presentation of 9.4/28.5, stable from previous of hemoglobin 10.7 he did receive 1 unit of packed red blood cells in the emergency room per oncology recommendation Etiology most likely postoperative blood loss Baseline hemoglobin 13-14 Patient is asymptomatic except for fatigue which is likely related to his known cancer and recent surgery No evidence of continued postoperative bleeding on abdominal CT Stable without an acute drop, currently fluctuates 9.4-10.7 Plan Continue to monitor for time being and transfuse as necessar Seen by oncology Qualifiers: Anemia type: other cause Other causes of anemia: chronic disease, neoplastic Qualified Code(s): D63.0 - Anemia in neoplastic disease (8) Generalized weakness Current Visit: Yes Status: Acute Assessment and plan: Multifactorial with acute respiratory failure, anemia, cancer, recent surgery and HCAP. - Treatments as above - PT/OT (9) DVT prophylaxis Current Visit: Yes Status: Acute Assessment and plan: SCDs - Time Spent With Patient Total time spent is greater than 50% in coordination of care (as documented) at patient's floor/unit and/or counseling patient: - Subjective Interval history: Patient has preseumed pneumonia and fluid overload. No acute events. Patient states his pain is feeling a little better. Edema still present but states is a little better as well. 01/21: He is now willing to have IR aspirate fluid. He is on O2 this morning but patient states he just threw it one, he was not short of breath and did not have any hypoxic episodes. - Constitutional Vitals: Temp Pulse Resp BP Pulse Ox 98.4 F 70 16 117/69 95 01/21/18 07:23 01/21/18 07:23 01/21/18 07:23 01/21/18 07:23 01/21/18 07:23 General appearance: Present: A&O X 3, answers questions appropriately Exam: - Head Head exam: Present: normocephalic - Eye Eye exam: Present: conjuntiva pink - ENT ENT exam: Present: mucous membranes moist - Respiratory Respiratory exam: Present: rhonchi. Absent: rales, wheezes - Cardiovascular Cardiovascular exam: Present: RRR. Absent: tachycardia - GI/Abdominal GI/Abdominal exam: Present: soft, tenderness - Extremities Exam Extremities exam: Present: warm. Absent: pedal edema, tenderness - Neurological Exam Neurological exam: Present: alert, oriented X3 - Skin Skin exam: Present: dry, warm Internal Medicine: Result - Labs CBC & Chem 7: 01/21/18 05:36 01/21/18 05:36 Labs: Short CBC 01/20/18 01/21/18 Range/Units 06:44 05:36 WBC 11.3 H 12.9 H (4.3-11.1) K/mcL Hgb 10.3 L 9.5 L (12.9-16.9) g/dL Hct 31.0 L 29.2 L (37.5-50.1) % Plt Count 283 285 (140-400) K/mcL Neutrophils # 9.7 H (1.6-8.9) K/mcL BMP 01/21/18 05:36 Sodium 133 L Potassium 3.5 Chloride 95 L Carbon Dioxide 30 H BUN 19 Creatinine 0.78 Glucose 111 H Calcium 8.8 - ABG Interpretation ABG results: PT/INR, D-dimer PT 12.8 Seconds (9.4-12.1) H 01/16/18 23:13 Consult Discharge Plan - Plan [facility]: [facility] [Primary Care Provider] -
[2018-01-21] MEDS: Tiotropium 18 MCG inhalation IH SCH (07:49)
[2018-01-21] MEDS: Insulin LISPRO 300 UNITS/3 ML VIAL SQ SCH ×7 (08:01→21:11)
[2018-01-21] MEDS: Gabapentin 300 MG CAPSULE PO SCH ×4 (09:09→21:10)
[2018-01-21] MEDS: Furosemide 40 MG TABLET PO SCH (09:09)
[2018-01-21] MEDS: Sennosides 8.6 MG TABLET PO SCH (09:09)
[2018-01-21] MEDS: Aspirin 81 MG TAB.CHEW PO SCH (09:10)
[2018-01-21] MEDS: Valsartan 160 MG TABLET PO SCH (09:10)
[2018-01-21] MEDS: hydroCHLOROthiazide 25 MG TABLET PO SCH (09:10)
--- NOTE | 2018-01-21 10:23 | Infectious Disease Progress No ---
Date of Encounter: 01/21/18 Time of Encounter: 10:22 - Assessment and Plan (1) Intra-abdominal fluid collection Current Visit: Yes Status: Acute The patient presented with no SIRS criteria. He has developed leukocytosis today. CT of the abdomen and pelvis showed gas-containing subcapsular fluid collections in the left and right hepatic lobes, which may be post-surgical vs. developing hepatic abscesses. Repeat CT scan 01/18/18 essentially unchanged. Etiology unclear: Post-op changes vs. abscesses. The patient had no SIRS criteria. Antibiotics discontinued yesterday. Case discussed with radiology yesterday by Dr. Hein. Findings concerning for abscesses. IR has been consulted and plan for aspiration/drainage later today. Send fluid for cell count with differential, protein, glucose, LDH, and culture (aerobic and anaerobic). While off antibiotics, if the patient becomes febrile or clinically worsens, get blood cultures x 2 sets and re-start empiric IV antibiotics. (2) HCAP (healthcare-associated pneumonia) Current Visit: Yes Status: Suspected CXR showed layering effusions with left base opacity concerning for atelectasis vs. PNA. CT of the abdomen and pelvis showed small right and trace left pleural effusions with associated basilar atelectasis with clostered nodular appearance at the lung bases, presumably infectious or inflammatory, but similar to prior exam in 03/2017. Low index of suspicion for infectious etiology given the lack of sepsis criteria. Observe off antibiotics. (3) History of liver cancer Current Visit: Yes Status: Chronic Diagnosed in 2016. Status post radiation therapy 11/2016. Primary source unclear: hepatocellular carcinoma vs. cholangiocarcinoma. Progression of disease noted in September 2017. Status post liver resection/mass removal with cholecystectomy 01/12/18 at [facility]. Hem/Onc consulted and following. (4) Type 2 diabetes mellitus Current Visit: Yes Status: Chronic Recommend aggressive glucose monitoring and treatment. Management per the primary team. Qualifiers: Diabetes mellitus residential insulin use: with residential use Diabetes mellitus complication status: without complication Qualified Code(s): E11.9 - Type 2 diabetes mellitus without complications; Z79.4 - nursing home (current) use of insulin; Z79.4 - nursing home (current) use of insulin; Z79.4 - nursing home ( current) use of insulin; Z79.4 - nursing home (current) use of insulin (5) PVD (peripheral vascular disease) Current Visit: No Status: Acute - Subjective Interval history: Patient seen and examined. No acute events noted overnight. Patient lying in bed. States he feels better today. Denies fevers, chills, or rigors. Denies chest pain, shortness of breath, or cough. Denies nausea, vomiting, or diarrhea. States he continues to have right sided abdominal pain, but denies appetite changes or urinary complaints. Currently NPO for IR procedure later today. Denies oral thrush or new skin lesions. Infect Dis PN-Objective Data - Labs CBC & Chem 7: 01/21/18 05:36 01/21/18 05:36 Labs: Laboratory Results - last 24 hr 01/21/18 01/21/18 01/21/18 05:36 05:36 07:29 WBC 12.9 H RBC 3.15 L Hgb 9.5 L Hct 29.2 L MCV 92.7 MCH 30.2 MCHC 32.5 RDW 14.3 Plt Count 285 MPV 9.7 Immature Gran % 0.9 Seg Neutrophils % 75.8 Lymphocytes % 13.2 Monocytes % 8.7 Eosinophils % 1.2 Basophils % 0.2 Neutrophils # 9.7 H Lymphocytes # 1.7 Monocytes # 1.1 Eosinophils # 0.2 Basophils # 0.0 Sodium 133 L Potassium 3.5 Chloride 95 L Carbon Dioxide 30 H BUN 19 Creatinine 0.78 Est GFR ( Amer) > 60 Est GFR (Non-Af Amer) > 60 BUN/Creatinine Ratio 24 Glucose 111 H POC Glucose 123 H Calculated Osmolality 279 L Calcium 8.8 Cultures: Cultures 01/17/18 15:05 Sputum Culture - Final Sputum 01/17/18 06:20 Legionella Antigen - Final Urine,Clean Catch Streptococcus pneumoniae Antigen (M - Final Exam - Constitutional Vitals: Temp Pulse Resp BP Pulse Ox 98.4 F 70 16 117/69 95 01/21/18 07:23 01/21/18 07:52 01/21/18 07:52 01/21/18 07:52 01/21/18 07:52 General appearance: cooperative, no acute distress, obese - Head Head exam: Present: atraumatic, normal inspection, normocephalic - Eye Eye exam: Present: EOMI, normal appearance Pupils: Present: normal accommodation, PERRL - ENT ENT exam: Present: mucous membranes moist - Neck Neck exam: Present: normal inspection - Respiratory Respiratory exam: Present: CTAB. Absent: rales, rhonchi, wheezes - Cardiovascular Cardiovascular exam: Present: RRR, +S1, +S2 - GI/Abdominal GI/Abdominal exam: Present: distended, normal bowel sounds, soft, tenderness ( RUQ, RLQ) - Extremities Exam Extremities exam: Present: normal inspection. Absent: pedal edema, tenderness - Neurological Exam Neurological exam: Present: alert, oriented X3, no focal deficits - Psychiatric Psychiatric exam: Present: normal affect, normal mood - Skin Skin exam: Present: dry, intact, normal color, warm Consult Discharge Plan - Plan Referrals: [facility] [Primary Care Provider] - - Attending Attestation I examined this patient and my medical decision-making was reviewed with the Resident Physician. I agree with the documented findings, disposition and treatment plan as described except to the extent set forth below.
[2018-01-21] MEDS ORDERED: Aminoglycoside Consult 1 EACH MC ONE (13:45)
[2018-01-21] MEDS ORDERED: *HR* FentaNYL (PF) 100 MCG/2 ML VIAL IVP ONE (14:10)
[2018-01-21] MEDS ORDERED: *HR* Midazolam HCl 2 MG/2 ML VIAL IVP ONE (14:10)
--- NOTE | 2018-01-21 14:12 | Pre-Sedation Evaluation ---
Pre-sedation evaluation - Pre-sedation checklist Date of procedure: 01/21/18 Procedure: CT guided drainage perihepatic fluid collections Recent Vitals: Last Vital Signs Temp 97.6 F 01/21/18 11:41 Pulse 55 01/21/18 11:41 Resp 16 01/21/18 11:41 BP 129/65 01/21/18 11:41 Pulse Ox 94 01/21/18 11:41 H&P (including ROS) documented in medical record: No Previous reaction to sedatives/anesthetics: No Dietary Status: No solid food in preceding 4 hrs and no liquid in preceding 2 hrs Dentition: poor dentition, dentures removed ASA Classification *see protocol: CLASS II-Mild systemic disease Plan of Care: Pt appropriate candidate for procedure/moderate/conscious sedation , Risks/benefits of procedure/sedation discussed w/ patient/family
--- NOTE | 2018-01-21 14:58 | IR Procedure Note ---
Date of procedure: 01/21/18 Consent Obtained: Written consent Timeout: Correct patient and procedure verified, Time out performed, Skin prep completed Local anesthetic: Lidocaine 1% Indications: Right hepatic fluid collection Procedure Performed: CT guided drainage Was there an child center assistant present: No Results/Findings: 10F APD right hepatci fluid collection Estimated blood loss (cc): 0 Complications: None; Tolerated procedure well Post Procedure Treatment Plan: Monitor on floor Specimen: To path
[2018-01-21 18:02] LABS: Appearance of Body Fluid Cloudy (Clear); Source of Body Fluid liver/intra abdomina; Volume of Body Fluid 60 mL
[2018-01-21] MEDS: Insulin DETEMIR 100 UNIT/ML X5UNITS SQ SCH (21:10)
[2018-01-22] MEDS: *HR* OxyCODONE Immed Rel 5 MG TABLET PO PRN ×4 (00:06→23:22)
[2018-01-22 06:11] LABS: Basophils % 0.2 %; Eosinophils # 0.2 K/mcL (0.0-0.6); Eosinophils % 1.6 %; Hematocrit 29.2 % (37.5-50.1); Hemoglobin 9.9 g/dL (12.9-16.9); Immature Granulocytes % 1.8 % (0-4); Immature Platelets 2.9 % (1.1-6.1); Lymphocytes # 1.5 K/mcL (0.6-4.6); Mean Corpuscular HGB Conc 33.9 g/dL (31.6-35.5); Mean Corpuscular Hemoglobin 31.7 pg (28.0-33.3); Mean Corpuscular Volume 93.6 fL (83.0-100.0); Mean Platelet Volume 9.9 fL (9.4-12.4); Monocytes # 1.1 K/mcL (0.0-1.3); Monocytes % 8.8 %; Neutrophils # 9.2 K/mcL (1.6-8.9); Nucleated Red Blood Cells 0.2 /100 WBC (0); Platelet Count 329 K/mcL (140-400); Red Blood Count 3.12 M/mcL (4.19-5.50); Red Cell Distribution Width 14.2 % (11.5-14.5); Segmented Neutrophils % 75.6 %
[2018-01-22 06:17] LABS: BUN/Creatinine Ratio 25 (6-26); Blood Urea Nitrogen 22 mg/dL (8-23); Calcium 8.7 mg/dL (8.6-10.3); Carbon Dioxide 26 mEq/L (23-29); Chloride 94 mEq/L (98-107); Glucose 197 mg/dL (70-105); Osmolality,Calculated 281 (280-300); Potassium 4.1 mEq/L (3.5-5.1); Sodium 131 mEq/L (136-145); eGFR For African Americans > 60 (> 60); eGFR For Non-African Americans > 60 (> 60)
[2018-01-22] MEDS: Tiotropium 18 MCG inhalation IH SCH (07:56)
[2018-01-22] MEDS: Insulin LISPRO 300 UNITS/3 ML VIAL SQ SCH ×7 (08:44→21:19)
[2018-01-22] MEDS: hydroCHLOROthiazide 25 MG TABLET PO SCH (08:45)
[2018-01-22] MEDS: Furosemide 40 MG TABLET PO SCH (08:45)
[2018-01-22] MEDS: Gabapentin 300 MG CAPSULE PO SCH ×4 (08:46→21:18)
[2018-01-22] MEDS: Aspirin 81 MG TAB.CHEW PO SCH (08:46)
[2018-01-22] MEDS: Sennosides 8.6 MG TABLET PO SCH (08:46)
[2018-01-22] MEDS: Valsartan 160 MG TABLET PO SCH (08:46)
--- NOTE | 2018-01-22 10:51 | Infectious Disease Progress No ---
Date of Encounter: 01/22/18 Time of Encounter: 10:48 - Assessment and Plan (1) Intra-abdominal fluid collection Current Visit: Yes Status: Acute The patient presented with no SIRS criteria. CT of the abdomen and pelvis showed gas-containing subcapsular fluid collections in the left and right hepatic lobes, which may be post-surgical vs. developing hepatic abscesses. Repeat CT scan 01/18/18 essentially unchanged. Etiology unclear: Post-op changes vs. abscesses. The patient has developed a mild leukocytosis with normal differential. Antibiotics remain off. Case discussed with radiology by Dr. Hein. Findings concerning for abscesses. Status post drain placement per IR. Fluid appears exudative per Light's criteria , but gram stain is negative. Culture is pending. While off antibiotics, if the patient becomes febrile or clinically worsens, get blood cultures x 2 sets and re-start empiric IV antibiotics. (2) HCAP (healthcare-associated pneumonia) Current Visit: Yes Status: Ruled-out CXR showed layering effusions with left base opacity concerning for atelectasis vs. PNA. CT of the abdomen and pelvis showed small right and trace left pleural effusions with associated basilar atelectasis with clostered nodular appearance at the lung bases, presumably infectious or inflammatory, but similar to prior exam in 03/2017. Low index of suspicion for infectious etiology given the lack of sepsis criteria. Observe off antibiotics. (3) History of liver cancer Current Visit: Yes Status: Chronic Diagnosed in 2016. Status post radiation therapy 11/2016. Primary source unclear: hepatocellular carcinoma vs. cholangiocarcinoma. Progression of disease noted in September 2017. Status post liver resection/mass removal with cholecyst[facility]. Hem/Onc consulted and following. (4) Type 2 diabetes mellitus Current Visit: Yes Status: Chronic Recommend aggressive glucose monitoring and treatment. Management per the primary team. 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 No acute events noted overnight. Patient lying in bed. States he feels better today. Denies fevers, chills, or rigors. Denies chest pain, shortness of breath, or cough. Denies nausea, vomiting, or diarrhea. States he continues to have right sided abdominal pain, improved, but denies appetite changes or urinary complaints. Denies oral thrush or new skin lesions. Infect Dis PN-Objective Data - Labs CBC & Chem 7: 01/22/18 04:29 01/22/18 04:29 Labs: Laboratory Results - last 24 hr 01/19/18 01/20/18 01/20/18 14:51 11:17 15:00 WBC RBC Hgb Hct MCV MCH MCHC RDW Plt Count MPV Immature Gran % Seg Neutrophils % Lymphocytes % Monocytes % Eosinophils % Basophils % Neutrophils # Lymphocytes # Monocytes # Eosinophils # Basophils # Nucleated RBCs/100 WBC Immature Plt Fraction Haptoglobin 406 H Sodium Potassium Chloride Carbon Dioxide BUN Creatinine Est GFR ( Amer) Est GFR (Non-Af Amer) BUN/Creatinine Ratio Glucose POC Glucose 313 H Calculated Osmolality Calcium Fluid Source Fluid Volume Fluid Appearance Fluid RBC Fld Tot Nucleated Cell Fluid Seg Neutrophil % Fld Band Neutrophil % Fluid Lymphocytes % Fluid Monocytes % Fluid Eosinophils % Fluid Basophils % Fluid Other Cells % Fluid Total Protein 4.2 Fluid LDH 01/20/18 01/20/18 01/20/18 15:00 16:12 19:57 WBC RBC Hgb Hct MCV MCH MCHC RDW Plt Count MPV Immature Gran % Seg Neutrophils % Lymphocytes % Monocytes % Eosinophils % Basophils % Neutrophils # Lymphocytes # Monocytes # Eosinophils # Basophils # Nucleated RBCs/100 WBC Immature Plt Fraction Haptoglobin Sodium Potassium Chloride Carbon Dioxide BUN Creatinine Est GFR ( Amer) Est GFR (Non-Af Amer) BUN/Creatinine Ratio Glucose POC Glucose 160 H 190 H Calculated Osmolality Calcium Fluid Source Fluid Volume Fluid Appearance Fluid RBC Fld Tot Nucleated Cell Fluid Seg Neutrophil % Fld Band Neutrophil % Fluid Lymphocytes % Fluid Monocytes % Fluid Eosinophils % Fluid Basophils % Fluid Other Cells % Fluid Total Protein Fluid LDH > 3600 01/21/18 01/21/18 01/21/18 11:46 16:06 16:26 WBC RBC Hgb Hct MCV MCH MCHC RDW Plt Count MPV Immature Gran % Seg Neutrophils % Lymphocytes % Monocytes % Eosinophils % Basophils % Neutrophils # Lymphocytes # Monocytes # Eosinophils # Basophils # Nucleated RBCs/100 WBC Immature Plt Fraction Haptoglobin Sodium Potassium Chloride Carbon Dioxide BUN Creatinine Est GFR ( Amer) Est GFR (Non-Af Amer) BUN/Creatinine Ratio Glucose POC Glucose 132 H 117 H Calculated Osmolality Calcium Fluid Source liver/intra abdomina Fluid Volume 60 Fluid Appearance Cloudy A Fluid RBC 0.013 Fld Tot Nucleated Cell 3568 Fluid Seg Neutrophil % 93.0 Fld Band Neutrophil % Test Not Performed Fluid Lymphocytes % Test Not Performed Fluid Monocytes % Test Not Performed Fluid Eosinophils % Test Not Performed Fluid Basophils % Test Not Performed Fluid Other Cells % 7.0 Fluid Total Protein Fluid LDH 01/21/18 01/22/18 01/22/18 20:54 04:29 04:29 WBC 12.2 H RBC 3.12 L Hgb 9.9 L Hct 29.2 L MCV 93.6 MCH 31.7 MCHC 33.9 RDW 14.2 Plt Count 329 MPV 9.9 Immature Gran % 1.8 Seg Neutrophils % 75.6 Lymphocytes % 12.0 Monocytes % 8.8 Eosinophils % 1.6 Basophils % 0.2 Neutrophils # 9.2 H Lymphocytes # 1.5 Monocytes # 1.1 Eosinophils # 0.2 Basophils # 0.0 Nucleated RBCs/100 WBC 0.2 H Immature Plt Fraction 2.9 Haptoglobin Sodium 131 L Potassium 4.1 Chloride 94 L Carbon Dioxide 26 BUN 22 Creatinine 0.89 Est GFR ( Amer) > 60 Est GFR (Non-Af Amer) > 60 BUN/Creatinine Ratio 25 Glucose 197 H POC Glucose 343 H Calculated Osmolality 281 Calcium 8.7 Fluid Source Fluid Volume Fluid Appearance Fluid RBC Fld Tot Nucleated Cell Fluid Seg Neutrophil % Fld Band Neutrophil % Fluid Lymphocytes % Fluid Monocytes % Fluid Eosinophils % Fluid Basophils % Fluid Other Cells % Fluid Total Protein Fluid LDH 01/22/18 06:45 WBC RBC Hgb Hct MCV MCH MCHC RDW Plt Count MPV Immature Gran % Seg Neutrophils % Lymphocytes % Monocytes % Eosinophils % Basophils % Neutrophils # Lymphocytes # Monocytes # Eosinophils # Basophils # Nucleated RBCs/100 WBC Immature Plt Fraction Haptoglobin Sodium Potassium Chloride Carbon Dioxide BUN Creatinine Est GFR ( Amer) Est GFR (Non-Af Amer) BUN/Creatinine Ratio Glucose POC Glucose 201 H Calculated Osmolality Calcium Fluid Source Fluid Volume Fluid Appearance Fluid RBC Fld Tot Nucleated Cell Fluid Seg Neutrophil % Fld Band Neutrophil % Fluid Lymphocytes % Fluid Monocytes % Fluid Eosinophils % Fluid Basophils % Fluid Other Cells % Fluid Total Protein Fluid LDH Cultures: Cultures 01/21/18 16:26 Gram Stain - Final Abdomen 01/17/18 15:05 Sputum Culture - Final Sputum 01/17/18 06:20 Legionella Antigen - Final Urine,Clean Catch Streptococcus pneumoniae Antigen (M - Final Serology 01/21/18 01/20/18 01/20/18 Range/Units 16:26 15:00 15:00 Fluid Source liver/intra abdomina Fluid Volume 60 mL Fluid Appearance Cloudy A (Clear) Fluid RBC 0.013 (No Ref Range) M/mcL Fld Tot Nucleated Cell 3568 (No Ref Range) TNC/mcL Fluid Seg Neutrophil % 93.0 % Fld Band Neutrophil % Test Not Performed Fluid Lymphocytes % Test Not Performed Fluid Monocytes % Test Not Performed Fluid Eosinophils % Test Not Performed Fluid Basophils % Test Not Performed Fluid Other Cells % 7.0 % Fluid Total Protein 4.2 (No Ref Range) g/dL Fluid LDH > 3600 (No Ref Range) Units/L - Impressions Impressions Retroperitoneal Abscess Drainage 01/21/18 00:00 IMPRESSION: 1. CT guided drainage of right hepatic fluid collection as discussed above. D/ / Davy Champion MD / Davy Champion MD Interpreting Provider: Davy Champion MD Exam - Constitutional Vitals: Temp Pulse Resp BP Pulse Ox 97.8 F 57 16 107/63 94 01/22/18 06:42 01/22/18 06:42 01/22/18 07:56 01/22/18 06:42 01/22/18 07:56 General appearance: cooperative, no acute distress, obese - Head Head exam: Present: atraumatic, normal inspection, normocephalic - Eye Eye exam: Present: EOMI, normal appearance, PERRL Pupils: Present: normal accommodation - ENT ENT exam: Present: mucous membranes moist - Neck Neck exam: Present: normal inspection - Respiratory Respiratory exam: Present: CTAB. Absent: rales, respiratory distress, rhonchi, wheezes - Cardiovascular Cardiovascular exam: Present: RRR, +S1, +S2 - GI/Abdominal GI/Abdominal exam: Present: distended, normal bowel sounds, soft, tenderness ( RUQ) Additional comments: RUQ lateral surgical incision with dressing C/D/I. Stab incisions x2 with bandaids C/D/I. VASHTI drain noted to the right upper lateral abdomen with serosanguinous drainage noted. - Extremities Exam Extremities exam: Present: normal inspection. Absent: joint swelling, pedal edema, tenderness - Neurological Exam Neurological exam: Present: alert, oriented X3, no focal deficits - Psychiatric Psychiatric exam: Present: normal affect, normal mood - Skin Skin exam: Present: dry, intact, normal color, warm Consult Discharge Plan - Plan [facility]errals: [facility] [Primary Care Provider] - - Attending Attestation I examined this patient and my medical decision-making was reviewed with the Resident Physician. I agree with the documented findings, disposition and treatment plan as described except to the extent set forth below.
--- NOTE | 2018-01-22 16:00 | Internal Med Progress Note ---
Date of Encounter: 01/22/18 Time of Encounter: 15:58 - Assessment and plan (1) Acute respiratory failure with hypoxia Current Visit: Yes Status: Resolved Assessment and plan: Second to fluid overload and possibly a pneumonia. Doing better - Was on Vanc/Zosyn, is being held (01/20) - to monitor if true infections. ID following, recommendations appreciated on antibiotic use. Currently on room air, no acute distress (2) Pneumonia Current Visit: Yes Status: Suspected Assessment and plan: CXR had possible pneumonia. Holding Vanc/Zosyn Antibiotics held for monitoring, if patient has true infections. Qualifiers: Pneumonia type: due to other aerobic Gram-negative bacteria Laterality: left Lung location: lower lobe of lung Qualified Code(s): J15.6 - Pneumonia due to other Gram-negative bacteria (3) History of liver cancer Current Visit: Yes Status: Chronic Assessment and plan: - s/p post a liver surgery at [facility] which family and patient reports removal of 3 lesions - Will request records from [facility]. - oncology consulted in the emergency room. Have not seen patient yet. - Findings on CT abd/pelvis of 3 areas of gas formation in the liver are likely post surgical. Will repeat scan today - Oncology note says stage IV cancer of unknown primary lesion. Hepatocellular CA given high AFP but also consider cholangiocarcinoma. - Subjective fevers could be a complication of surgery, however CT abdomen shows gas formation which could be secondary to post surgical changes. Afebrile overnight Plan - Vanc/Zosyn held 01/20 for monitoring - Repeat CT unchanged. 01/21: had IR guided drainage of hepatic fluid collection, tolerated well. Fluid sent for cytology (4) Pleural effusion Current Visit: Yes Status: Acute Assessment and plan: Has been diuresing and clinically improved. Continue Lasix and HCTZ - Will evaluate if patient can have Lasix discontinued on discharge. 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 (7) Anemia Current Visit: Yes Status: Chronic Assessment and plan: H/H on presentation of 9.4/28.5, stable from previous of hemoglobin 10.7 he did receive 1 unit of packed red blood cells in the emergency room per oncology recommendation Etiology most likely postoperative blood loss Baseline hemoglobin 13-14 Patient is asymptomatic except for fatigue which is likely related to his known cancer and recent surgery No evidence of continued postoperative bleeding on abdominal CT Plan Continue to monitor for time being and transfuse as necessary Seen by oncology Qualifiers: Anemia type: other cause Other causes of anemia: chronic disease, neoplastic Qualified Code(s): D63.0 - Anemia in neoplastic disease (8) Generalized weakness Current Visit: Yes Status: Acute Assessment and plan: Multifactorial with acute respiratory failure, anemia, cancer, recent surgery and HCAP. - Treatments as above - PT/OT He is now ambulating in hospital without issue (9) DVT prophylaxis Current Visit: Yes Status: Acute Assessment and plan: SCDs - Time Spent With Patient Total time spent is greater than 50% in coordination of care (as documented) at patient's floor/unit and/or counseling patient: - Subjective Interval history: Patient has preseumed pneumonia and fluid overload. No acute events. Patient states his pain is feeling a little better. Edema still present but states is a little better as well. 01/21: He is now willing to have IR aspirate fluid. He is on O2 this morning but patient states he just threw it one, he was not short of breath and did not have any hypoxic episodes. 01/22: Off O2, no acute events. - Constitutional Vitals: Temp Pulse Resp BP Pulse Ox 98.6 F 76 19 122/73 94 01/22/18 15:21 01/22/18 15:21 01/22/18 15:21 01/22/18 15:21 01/22/18 15:21 General appearance: Present: A&O X 3, answers questions appropriately - Head Head exam: Present: atraumatic, normocephalic - Eye Eye exam: Present: PERRL, conjuntiva pink, sclera anicteric Pupils: Present: PERRL - Neck Neck exam general surgery: Present: supple, trachea midline. Absent: lymphadenopathy - Respiratory Respiratory exam: Present: CTAB. Absent: accessory muscle use, rales, rhonchi, wheezes - Cardiovascular Cardiovascular exam: Present: RRR, +S1, +S2. Absent: diastolic murmur, gallop, rubs, systolic murmur - GI/Abdominal GI/Abdominal exam: Present: normal bowel sounds, soft, no peritoneal signs. Absent: distended, tenderness - Extremities Exam Extremities exam: Present: warm, radial pulses palpable and symmetrical. Absent : calf tenderness, cyanotic, pedal edema - Neurological Exam Neurological exam: Present: CN II-XII intact, oriented X3, no focal deficits. Absent: pronater drift, facial droop, speech deficit - Skin Skin exam: Present: dry, intact Additional comments: VASHTI drain in tact, serosanguonous fluid draining Internal Medicine: Result - Labs CBC & Chem 7: 01/22/18 04:29 01/22/18 04:29 Labs: Short CBC 01/22/18 Range/Units 04:29 WBC 12.2 H (4.3-11.1) K/mcL Hgb 9.9 L (12.9-16.9) g/dL Hct 29.2 L (37.5-50.1) % Plt Count 329 (140-400) K/mcL Neutrophils # 9.2 H (1.6-8.9) K/mcL BMP 01/22/18 04:29 Sodium 131 L Potassium 4.1 Chloride 94 L Carbon Dioxide 26 BUN 22 Creatinine 0.89 Glucose 197 H Calcium 8.7 - ABG Interpretation ABG results: PT/INR, D-dimer PT 12.8 Seconds (9.4-12.1) H 01/16/18 23:13 Consult Discharge Plan - Plan [facility] Provider[facility] -
[2018-01-22] MEDS: Insulin DETEMIR 100 UNIT/ML X5UNITS SQ SCH (21:18)
[2018-01-23 05:54] LABS: Basophils % 0.3 %; Eosinophils # 0.2 K/mcL (0.0-0.6); Eosinophils % 1.8 %; Hematocrit 31.1 % (37.5-50.1); Hemoglobin 10.2 g/dL (12.9-16.9); Immature Granulocytes % 0.8 % (0-4); Lymphocytes # 2.1 K/mcL (0.6-4.6); Lymphocytes % 17.5 %; Mean Corpuscular HGB Conc 32.8 g/dL (31.6-35.5); Mean Corpuscular Hemoglobin 30.4 pg (28.0-33.3); Mean Corpuscular Volume 92.6 fL (83.0-100.0); Mean Platelet Volume 9.4 fL (9.4-12.4); Monocytes # 0.9 K/mcL (0.0-1.3); Monocytes % 7.4 %; Neutrophils # 8.7 K/mcL (1.6-8.9); Platelet Count 343 K/mcL (140-400); Red Blood Count 3.36 M/mcL (4.19-5.50); Red Cell Distribution Width 13.8 % (11.5-14.5); Segmented Neutrophils % 72.2 %
[2018-01-23 06:14] LABS: BUN/Creatinine Ratio 23 (6-26); Blood Urea Nitrogen 21 mg/dL (8-23); Calcium 9.1 mg/dL (8.6-10.3); Carbon Dioxide 33 mEq/L (23-29); Chloride 98 mEq/L (98-107); Glucose 172 mg/dL (70-105); Osmolality,Calculated 285 (280-300); Sodium 134 mEq/L (136-145); eGFR For African Americans > 60 (> 60); eGFR For Non-African Americans > 60 (> 60)
[2018-01-23] MEDS: hydroCHLOROthiazide 25 MG TABLET PO SCH (08:07)
[2018-01-23] MEDS: Insulin LISPRO 300 UNITS/3 ML VIAL SQ SCH ×4 (08:07→11:44)
[2018-01-23] MEDS: Aspirin 81 MG TAB.CHEW PO SCH (08:08)
[2018-01-23] MEDS: Gabapentin 300 MG CAPSULE PO SCH (08:08)
[2018-01-23] MEDS: Sennosides 8.6 MG TABLET PO SCH (08:08)
[2018-01-23] MEDS: Furosemide 40 MG TABLET PO SCH (08:08)
[2018-01-23] MEDS: Valsartan 160 MG TABLET PO SCH (08:08)
--- NOTE | 2018-01-23 08:39 | Internal Med Progress Note ---
Date of Encounter: 01/23/18 Time of Encounter: 08:34 - Assessment and plan (1) Acute respiratory failure with hypoxia Current Visit: Yes Status: Resolved Assessment and plan: Second to fluid overload and possibly a pneumonia Doing better - Was on Vanc/Zosyn, is being held (01/20) - to monitor if true infections. - ID following, recommendations appreciated on antibiotic use. Has been on room air without difficulty. Will give one dose IV lasix today. (2) Pneumonia Current Visit: Yes Status: Suspected Assessment and plan: CXR had possible pneumonia. Holding Vanc/Zosyn Antibiotics held for monitoring, if patient has true infections. Qualifiers: Pneumonia type: due to other aerobic Gram-negative bacteria Laterality: left Lung location: lower lobe of lung Qualified Code(s): J15.6 - Pneumonia due to other Gram-negative bacteria (3) History of liver cancer Current Visit: Yes Status: Chronic Assessment and plan: - s/p post a liver surgery at [facility] which family and patient reports removal of 3 lesions - Will request records from [facility]. - oncology consulted in the emergency room. Have not seen patient yet. - Findings on CT abd/pelvis of 3 areas of gas formation in the liver are likely post surgical. Will repeat scan today - Oncology note says stage IV cancer of unknown primary lesion. Hepatocellular CA given high AFP but also consider cholangiocarcinoma. - Subjective fevers could be a complication of surgery, however CT abdomen shows gas formation which could be secondary to post surgical changes. Afebrile overnight Plan - Vanc/Zosyn held 01/20 for monitoring - Repeat CT unchanged. 01/21: had IR guided drainage of hepatic fluid collection, tolerated well. 01/23: VASHTI drain approx 120 ml out so far. abdominal fluid with LDH >3600 and total protein 4.2, possibly exudative in this case, likely malignancy related, infectious possible but patient off antibiotics without issue so far. Patient near stable from medical standpoint. Will contact patient's surgeon Dr. Analilia Faulkner in regards to VASHTI drain management. (4) Pleural effusion Current Visit: Yes Status: Acute Assessment and plan: Has been diuresing and clinically improved. Continue Lasix and HCTZ - Will evaluate if patient can have Lasix discontinued on discharge. Giving one time IV Lasix 40 mg. 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 (7) Anemia Current Visit: Yes Status: Chronic Assessment and plan: H/H on presentation of 9.4/28.5, stable from previous of hemoglobin 10.7 he did receive 1 unit of packed red blood cells in the emergency room per oncology recommendation Etiology most likely postoperative blood loss Baseline hemoglobin 13-14 Patient is asymptomatic except for fatigue which is likely related to his known cancer and recent surgery No evidence of continued postoperative bleeding on abdominal CT Plan Continue to monitor for time being and transfuse as necessary Seen by oncology Qualifiers: Anemia type: other cause Other causes of anemia: chronic disease, neoplastic Qualified Code(s): D63.0 - Anemia in neoplastic disease (8) Generalized weakness Current Visit: Yes Status: Acute Assessment and plan: Multifactorial with acute respiratory failure, anemia, cancer, recent surgery and (possibly) HCAP. - Treatments as above - PT/OT He is now ambulating in hospital without issue (9) DVT prophylaxis Current Visit: Yes Status: Acute Assessment and plan: SCDs - Time Spent With Patient Total time spent is greater than 50% in coordination of care (as documented) at patient's floor/unit and/or counseling patient: - Subjective Interval history: Patient has preseumed pneumonia and fluid overload. No acute events. Patient states his pain is feeling a little better. Edema still present but states is a little better as well. 01/21: He is now willing to have IR aspirate fluid. He is on O2 this morning but patient states he just threw it one, he was not short of breath and did not have any hypoxic episodes. 01/22: Off O2, no acute events. 01/23: no acute events, has VASHTI drain in without issue, 100 cc out so far. Patient wants to go home. - Constitutional Vitals: Temp Pulse Resp BP Pulse Ox 98.6 F 59 15 126/55 100 01/23/18 05:17 01/23/18 05:17 01/23/18 05:17 01/23/18 05:17 01/23/18 05:17 General appearance: Present: A&O X 3, answers questions appropriately - Head Head exam: Present: atraumatic, normocephalic - Eye Eye exam: Present: PERRL, conjuntiva pink, sclera anicteric Pupils: Present: PERRL - Neck Neck exam general surgery: Present: supple, trachea midline. Absent: lymphadenopathy - Respiratory Respiratory exam: Present: rales (fine rales at bases, equal). Absent: accessory muscle use, rhonchi, wheezes - Cardiovascular Cardiovascular exam: Present: RRR, +S1, +S2. Absent: diastolic murmur, gallop, rubs, systolic murmur - GI/Abdominal GI/Abdominal exam: Present: normal bowel sounds, soft, no peritoneal signs. Absent: distended, tenderness - Extremities Exam Extremities exam: Present: warm, radial pulses palpable and symmetrical. Absent : calf tenderness, cyanotic, pedal edema - Neurological Exam Neurological exam: Present: CN II-XII intact, oriented X3, no focal deficits. Absent: pronater drift, facial droop, speech deficit - Skin Skin exam: Present: dry, intact Internal Medicine: Result - Labs CBC & Chem 7: 01/23/18 05:39 01/23/18 05:39 Labs: Short CBC 01/23/18 Range/Units 05:39 WBC 12.0 H (4.3-11.1) K/mcL Hgb 10.2 L (12.9-16.9) g/dL Hct 31.1 L (37.5-50.1) % Plt Count 343 (140-400) K/mcL Neutrophils # 8.7 (1.6-8.9) K/mcL BMP 01/23/18 05:39 Sodium 134 L Potassium 4.0 Chloride 98 Carbon Dioxide 33 H BUN 21 Creatinine 0.90 Glucose 172 H Calcium 9.1 - ABG Interpretation ABG results: PT/INR, D-dimer PT 12.8 Seconds (9.4-12.1) H 01/16/18 23:13 Consult Discharge Plan - Plan [facility]: [facility] [[facility] Care Provider[facility] -
[2018-01-23] MEDS ORDERED: Furosemide 40 MG/4 ML VIAL IVP ONE (08:44)
--- NOTE | 2018-01-23 08:56 | Infectious Disease Progress No ---
Date of Encounter: 01/23/18 Time of Encounter: 08:54 - Assessment and Plan (1) Intra-abdominal fluid collection Current Visit: Yes Status: Acute The patient presented with no SIRS criteria. CT of the abdomen and pelvis showed gas-containing subcapsular fluid collections in the left and right hepatic lobes, which may be post-surgical vs. developing hepatic abscesses. Repeat CT scan 01/18/18 essentially unchanged. Etiology unclear: Post-op changes vs. abscesses. The patient has developed a mild leukocytosis with normal differential. Antibiotics remain off and patient is clinically improved. Case discussed with radiology by Dr. Hein. Findings concerning for abscesses. Status post drain placement per IR. Fluid appears exudative per Light's criteria , but gram stain is negative. Culture is preliminarily negative. While off antibiotics, if the patient becomes febrile or clinically worsens, get blood cultures x 2 sets and re-start empiric IV antibiotics. (2) HCAP (healthcare-associated pneumonia) Current Visit: Yes Status: Ruled-out CXR showed layering effusions with left base opacity concerning for atelectasis vs. PNA. CT of the abdomen and pelvis showed small right and trace left pleural effusions with associated basilar atelectasis with clostered nodular appearance at the lung bases, presumably infectious or inflammatory, but similar to prior exam in 03/2017. Low index of suspicion for infectious etiology given the lack of sepsis criteria. Observe off antibiotics. (3) History of liver cancer Current Visit: Yes Status: Chronic Diagnosed in 2016. Status post radiation therapy 11/2016. Primary source unclear: hepatocellular carcinoma vs. cholangiocarcinoma. Progression of disease noted in September 2017. Status post liver resection/mass removal with cholecystectomy 01/12/18 at [facility]. Hem/Onc consulted and following. (4) Type 2 diabetes mellitus Current Visit: Yes Status: Chronic Recommend aggressive glucose monitoring and treatment. Management per the primary team. Qualifiers: Diabetes mellitus rn long term care insulin use: with rn long term care use Diabetes mellitus complication status: without complication Qualified Code(s): E11.9 - Type 2 diabetes mellitus without complications; Z79.4 - pen[facility]iary (current) use of insulin (5) PVD (peripheral vascular disease) Current Visit: No Status: Acute - Subjective Interval history: Patient seen and examined. No acute events noted overnight. Patient sitting up on the side of the bed, eating breakfast. States he feels better today. Denies fevers, chills, or rigors. Denies chest pain, shortness of breath, or cough. Denies nausea, vomiting, or diarrhea. States he continues to have right sided abdominal pain, improved, but denies appetite changes or urinary complaints. Denies oral thrush or new skin lesions. States he is leaving the hospital today regardless of what we say. Infect Dis PN-Objective Data - Labs CBC & Chem 7: 01/23/18 05:39 01/23/18 05:39 Labs: Laboratory Results - last 24 hr 01/19/18 01/23/18 01/23/18 14:51 05:39 05:39 WBC 12.0 H RBC 3.36 L Hgb 10.2 L Hct 31.1 L MCV 92.6 MCH 30.4 MCHC 32.8 RDW 13.8 Plt Count 343 MPV 9.4 Immature Gran % 0.8 Seg Neutrophils % 72.2 Lymphocytes % 17.5 Monocytes % 7.4 Eosinophils % 1.8 Basophils % 0.3 Neutrophils # 8.7 Lymphocytes # 2.1 Monocytes # 0.9 Eosinophils # 0.2 Basophils # 0.0 Haptoglobin 406 H Sodium 134 L Potassium 4.0 Chloride 98 Carbon Dioxide 33 H BUN 21 Creatinine 0.90 Est GFR ( Amer) > 60 Est GFR (Non-Af Amer) > 60 BUN/Creatinine Ratio 23 Glucose 172 H Calculated Osmolality 285 Calcium 9.1 Cultures: Cultures 01/20/18 15:00 Body Fluid Culture - Preliminary Other-Specify in Comments 01/21/18 16:26 Gram Stain - Final Abdomen 01/17/18 15:05 Sputum Culture - Final Sputum 01/17/18 06:20 Legionella Antigen - Final Urine,Clean Catch Streptococcus pneumoniae Antigen (M - Final Serology 01/21/18 01/20/18 01/20/18 Range/Units 16:26 15:00 15:00 Fluid Source liver/intra abdomina Fluid Volume 60 mL Fluid Appearance Cloudy A (Clear) Fluid RBC 0.013 (No Ref Range) M/mcL Fld Tot Nucleated Cell 3568 (No Ref Range) TNC/mcL Fluid Seg Neutrophil % 93.0 % Fld Band Neutrophil % Test Not Performed Fluid Lymphocytes % Test Not Performed Fluid Monocytes % Test Not Performed Fluid Eosinophils % Test Not Performed Fluid Basophils % Test Not Performed Fluid Other Cells % 7.0 % Fluid Total Protein 4.2 (No Ref Range) g/dL Fluid LDH > 3600 (No Ref Range) Units/L Exam - Constitutional Vitals: Temp Pulse Resp BP Pulse Ox 98.6 F 59 15 126/55 100 01/23/18 05:17 01/23/18 05:17 01/23/18 05:17 01/23/18 05:17 01/23/18 05:17 General appearance: cooperative, no acute distress, obese - Head Head exam: Present: atraumatic, normal inspection, normocephalic - Eye Eye exam: Present: EOMI, normal appearance, PERRL Pupils: Present: normal accommodation - ENT ENT exam: Present: mucous membranes moist - Neck Neck exam: Present: normal inspection - Respiratory Respiratory exam: Present: CTAB. Absent: rales, respiratory distress, rhonchi, wheezes - Cardiovascular Cardiovascular exam: Present: RRR, +S1, +S2 - GI/Abdominal GI/Abdominal exam: Present: distended (obese), normal bowel sounds, soft, tenderness (Mild, RUQ) Additional comments: VASHTI drain noted to the right lateral abdominal wall with scant serous drainage noted. Transverse abdominal incision noted to the RUQ with dressing C/D/I. Stab incisions x 2 to the abdomen with band-aids C/D/I. - Extremities Exam Extremities exam: Present: normal inspection. Absent: joint swelling, pedal edema, tenderness - Back Exam Back exam: Present: normal inspection. Absent: paraspinal tenderness, vertebral tenderness - Neurological Exam Neurological exam: Present: alert, oriented X3, no focal deficits - Psychiatric Psychiatric exam: Present: normal affect, normal mood - Skin Skin exam: Present: dry, intact, normal color, warm Consult Discharge Plan - Plan Referrals: Analilia Faulkner [Non-Partnered Physician] - 01/30/18 9:15 am [facility] Care Provider[facility] - Prescriptions: Metoprolol [Lopressor] 25 mg PO BID #60 tablet - Attending Attestation I examined this patient and my medical decision-making was reviewed with the Resident Physician. I agree with the documented findings, disposition and treatment plan as described except to the extent set forth below.
[2018-01-23] MEDS: Tiotropium 18 MCG inhalation IH SCH (10:45)
[2018-01-23] MEDS ORDERED: 0.9 % Sodium Chloride 250 ML IVC ONE (10:46)
--- NOTE | 2018-01-23 11:18 | Discharge Summary ---
- NOTES TO OUTPATIENT PROVIDER Notes to Outpatient Provider: - VASHTI drain to be removed in Surgery follow-up visit. Orders not resulted at time of discharge: Pending orders 01/20/18 15:00 Culture,Anaerobic [RM] Routine Culture,Body Fluid [RM] Routine Date of Encounter: 01/23/18 Time of Encounter: 11:13 - Discharge Diagnosis (1) Acute respiratory failure with hypoxia Priority: Primary Status: Resolved (2) History of liver cancer Priority: Secondary Status: Chronic (3) Pleural effusion Priority: Secondary Status: Acute (4) Type 2 diabetes mellitus Priority: Secondary Status: Chronic Qualifiers: Diabetes mellitus penitentiary insulin use: with wet pour mixer use Diabetes mellitus complication status: without complication Qualified Code(s): E11.9 - Type 2 diabetes mellitus without complications; Z79.4 - halfway (current) use of insulin (5) Carcinoma of unknown primary Priority: Secondary Status: Chronic (6) Anemia Priority: Secondary Status: Chronic Qualifiers: Anemia type: other cause Other causes of anemia: chronic disease, neoplastic Qualified Code(s): D63.0 - Anemia in neoplastic disease (7) Generalized weakness Priority: Secondary Status: Resolved (8) DVT prophylaxis Priority: Secondary Status: Acute Hospital course: Mr. 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 Surgeries were done on Friday and discharged Friday. He was intubated for surgery and extubated right after. He experienced subjective fevers and generalized weakness with body aches all over once he got home. He did not want to go back to [facility] as he wasnt happy with his stay there and decided to come here which is closer to home for him too. He says some of the above symptoms were there when he was hospitalized there. He has a wet cough. In the ED, hemodynamically stable. Work up revealed hgb of 8.3 with no reported bleeding. Previous hgb was 13.1. Oncology manager completions were called and advised 1 unit PRBCs. WBC 11.1. Sodium was 129. AST was elevated at 222 but previously normal on 01/05/2018. Alkaline phos 119 and previously normal on 01/05/2018. AST is normal here. UA was negative for infection. CXR showed new small layering left plerual effusion with left base opacity that may reflect atelectasis or pneumonia. A CT abd/ pelvis done showed gas containing subcapsular fluid collection in the left and right hepating lobes. Those were possibly postsurgical vs hepatic abscesses. Gas within the right rectus muscles presumeably postsurgical. They also commented on asymmetric urinary bladder wall thickening. He was admitted for generalized weakness, fluid overload/acute respiratory failure (started requiring O2 during admission), and workup for fever/ infection. He was treated on emperic antibiotic therapy with vancomycin and Zosyn. He had fluid overload and was treated with Lasix. Oncology was consulted in the ED and he received one unit of PRBC. There was concern of findings of fluid collection in the liver. This was likely from post surgery changes but liver abscess needed ruled out. ID was consulted for assistance. He was monitored off of antibiotics and patient had no complications, no sign of infections, increased white blood cell counts, or fevers. He had IR guided fluid removal of liver fluid and abdominal fluid collections. They were sent to lab and preliminarily looks negative for infection. Patient was weaned to room air and also weakness improved, able to ambulate around without issue. Patient was stable for discharge and no antibiotics were needed. He was discharged donita n stable condition with follow-up as outpatient Surgery visit to remove VASHTI drain. Patient educated on VASHTI management until that time. - Time Spent with Patient Total time spent providing and/or coordinating discharge services: - Discharge Medications Prescriptions: Metoprolol [Lopressor] 25 mg PO BID #60 tablet Home Medications: Aspirin 81 mg PO DAILY 08/14/16 [History] Valsartan [Diovan] 320 mg PO DAILY 08/14/16 [History] hydroCHLOROthiazide [Hydrochlorothiazide] 25 mg PO DAILY 08/14/16 [History] metFORMIN [Glucophage] 1,000 mg PO BIDWM 08/14/16 [History] Dapagliflozin Propanediol [Farxiga] 10 mg PO DAILY 09/20/16 [History] Liraglutide [Victoza 2-Justin] 1.8 mg SQ DAILY 09/20/16 [History] Lovastatin 40 mg PO DAILY 09/20/16 [History] Montelukast [Singulair] 10 mg PO DAILY 09/20/16 [History] [place]-3/Dha/Epa/Fish Oil [Fish Oil 1,000 mg Softgel] 1,000 mg PO DAILY 10/11/16 [History] Tiotropium [Spiriva] 1 cap IH DAILY 10/11/16 [History] Vitamin E 400 unit PO DAILY 10/11/16 [History] HYDROcodone/Acet 5/325 mg [[place] 5-325 mg] 1 - 2 tab PO Q4H PRN #120 tab [Rx] Insulin ASPART [NovoLOG] 6 - 14 units SQ TID PRN 06/25/17 [History] Insulin DETEMIR [Levemir] 30 unit SQ 0800 06/25/17 [History] Albuterol Sulfate [Ventolin Hfa] 2 puff IH Q6H PRN 01/18/18 [History] Docusate Sodium [Dok] 100 mg PO BID 01/18/18 [History] Etodolac 200 mg PO Q8H PRN 01/18/18 [History] Gabapentin [Neurontin] 300 mg PO QID 01/18/18 [History] Polyethylene Glycol 3350 [MiraLAX Powder Bulk 17.9 Oz] 1 scoop PO DAILY [History] Sennosides [Senna] 8.6 mg PO DAILY 01/18/18 [History] Ezetimibe [Zetia] 10 mg PO DAILY 01/19/18 [History] glipiZIDE [Glucotrol] 5 mg PO BID 01/19/18 [History] Gabapentin [Neurontin] 300 mg PO QID capsule 01/23/18 [Rx] Metoprolol [Lopressor] 25 mg PO BID #60 tablet 01/23/18 [Rx] Allergies/Adverse Reactions: 3 Allergy/AdvReac Type Severity Reaction Status Date / Time bacitracin Allergy Rash Verified 10/22/17 08:11 [From Neosporin ([id number])] Neomycin Allergy Rash Verified 10/22/17 08:11 [From Neosporin ([id number])] polymyxin B Allergy Rash Verified 10/22/17 08:11 [From Neosporin ([id number])] Sulfa (Sulfonamide Allergy Rash Verified 10/22/17 08:11 Antibiotics) Date of admission: 01/17/18 02:01 [facility] care physician: [facility] Consults: 01/17/18 02:08 Consult to Oncology [CONS] Routine Consulting Provider: [facility] Reason for Consult: liver cancer. s/p surgery at [facility]. here with weakness/anemia Call Completed: No 01/18/18 16:40 Consult to Water Commissioner [CONS] Routine Reason for SW Consult: [facility]. 01/19/18 17:12 Consult to Infectious Diseases [CONS] Routine Consulting Provider: [facility] [place] Reason for Consult: Pt with recent gallbladder and liver surgery. Has fluid collections most likely post op. [facility] sure not infection before we send there. Time Notified: 17:15 Call Completed: Yes 01/20/18 15:54 Consult to Interventional Radiology [CONS] Routine Consulting Provider: Radiology Interventional [facility] Reason for Consult: Hepatic fluid aspiration; possible abscess Call Completed: Yes Discharging clinician: Jose Miguel Cain - Constitutional Vitals: Temp Pulse Resp BP Pulse Ox 97.7 F 58 15 92/40 96 01/23/18 10:32 01/23/18 10:43 01/23/18 10:32 01/23/18 10:43 01/23/18 10:32 General appearance: Present: A&O X 3, answers questions appropriately Exam: - Head Head exam: Present: atraumatic, normocephalic - Eye Eye exam: Present: PERRL, conjuntiva pink, sclera anicteric Pupils: Present: PERRL - Neck Neck exam general surgery: Present: supple, trachea midline. Absent: lymphadenopathy - Respiratory Respiratory exam: Present: rales (fine rales at bases, equal). Absent: accessory muscle use, rhonchi, wheezes - Cardiovascular Cardiovascular exam: Present: RRR, +S1, +S2. Absent: diastolic murmur, gallop, rubs, systolic murmur - GI/Abdominal GI/Abdominal exam: Present: normal bowel sounds, soft, no peritoneal signs. Absent: distended, tenderness - Extremities Exam Extremities exam: Present: warm, radial pulses palpable and symmetrical. Absent : calf tenderness, cyanotic, pedal edema - Neurological Exam Neurological exam: Present: CN II-XII intact, oriented X3, no focal deficits. Absent: pronater drift, facial droop, speech deficit - Skin Skin exam: Present: dry, intact - Patient Status Disposition: Home, Self-Care Condition: Fair Functional capacity at discharge: independent ambulation Overall status at discharge: patient is progressing back to baseline - Discharge Instructions Follow Up With: [facility],PCP [Primary Care Provider] - - Diet and Activity Activity: increase activity as tolerated Diet: advance to your usual diet
[2018-01-23 11:35] VITALS: BP 101/67
== END 2018-01-23 13:46 | disposition home or self-care (01) | DRG 177 ==
LOC: 3ANU 22:09 → EMEROO 22:09 → SUATTDRO 01-17 02:01 → 3ANU 01-17 03:18
PROVIDERS: ADMIT Internal Medicine; ATTEND Student in an Organized Health Care Education/Training Program
PROC: IRFLUID (2018-01-21 12:00)

== ENCOUNTER 2018-11-02 15:48 | Inpatient (IN) ==
--- NOTE | 2018-11-02 17:25 | Emergency Department Note ---
Disposition Clinical Impression: Hyperammonemia, SHRUTHI (acute kidney injury), Elevated LFTs Disposition: Admitted As Inpatient Condition: Fair Time of Disposition: 20:58 General Adult HPI - General Stated complaint: low urine output Time Seen by Provider: 11/02/18 16:27 Source: patient, EMS Limitations: no limitations Nursing Notes Reviewed: Yes Vital Signs Reviewed: Yes - History of Present Illness HPI Narrative: Paul Verduzco is a 68 yr old male presenting via EMS from home with complaint of low urine output. He has a past medical history liver cancer status post surgery, chemotherapy, radiation. Also history of COPD, hypertension, diabetes, peripheral neuropathy, peripheral vascular disease and hyperlipidemia. Patient states that on 10/16/18 he had a fall and broke his left fourth toe. Since then he has had increased lower extremity edema bilaterally. He was seen by Dr. Navarro one week ago and given an antibiotic Lasix increased swelling. He was also an ultrasound done at that time for possible DVT which was negative. The edema has been unchanged after trialing Lasix for the past week, his lower extremities have also some lesions with weeping slightly on the left calf as well as erythema. Since starting Lasix about one week ago patient has had increasing low urine output, and urinating infrequently, states several hours in between attempts to urinate. When urine is produced it is small amount and very dark color. He also admits to some nausea, vomiting, bilateral upper extremity tremors, difficulty walking, intermittent dysuria, increased weakness, shortness of breath, chronic cough, constipation and paresthesias in his lower extremities. He denies fever, chills, dizziness, headache, hearing changes, vision changes, seizures, loss of consciousness, productive cough, abdominal pain, diarrhea, hematuria, hematochezia, calf pain. Pain Scale: 9 - Related Data Home Medications Medication Instructions Recorded Confirmed Aspirin 81 mg PO DAILY 08/14/16 10/27/18 metFORMIN [Glucophage] 500 mg PO BIDWM 08/14/16 10/27/18 Dapagliflozin Propanediol [Farxiga] 10 mg PO DAILY 09/20/16 10/27/18 Liraglutide [Victoza 2-Justin] 1.8 mg SQ DAILY 09/20/16 10/27/18 Lovastatin 40 mg PO DAILY 09/20/16 10/27/18 Montelukast [Singulair] 10 mg PO DAILY PRN 09/20/16 10/27/18 Schoolcraft-3/Dha/Epa/Fish Oil [Fish Oil 1,200 mg PO BID 10/11/16 10/27/18 1,000 mg Softgel] Tiotropium [Spiriva] 1 cap IH DAILY 10/11/16 10/27/18 Vitamin E 400 unit PO DAILY 10/11/16 10/27/18 Albuterol Sulfate [Ventolin Hfa] 2 puff IH Q6H PRN 01/18/18 10/27/18 Docusate Sodium [Dok] 100 mg PO BID 01/18/18 10/27/18 Polyethylene Glycol 3350 [MiraLAX 1 scoop PO DAILY PRN 01/18/18 10/27/18 Powder Bulk 17.9 Oz] Oxycodone HCl [Oxaydo] 5 mg PO AD PRN 03/16/18 10/27/18 Gabapentin [Neurontin] 400 mg PO QID 03/23/18 10/27/18 Cholecalciferol (Vitamin D3) 10,000 unit PO DAILY 06/24/18 10/27/18 [Vitamin D3] Folic Acid 1 mg PO DAILY 06/24/18 10/27/18 Magnesium Oxide [Magnesium] 600 mg PO HS 09/23/18 10/27/18 Previous Rx's Medication Instructions Recorded Metoprolol [Lopressor] 25 mg PO BID #60 tablet 01/23/18 Ondansetron ODT [Zofran ODT] 4 mg SL Q6HR #20 tab.rapdis 03/23/18 Lidocaine/Prilocaine [Emla] 1 appl TP AD #30 gm 04/15/18 Cephalexin [Keflex] 500 mg PO TID #21 capsule 10/27/18 Furosemide [Lasix] 40 mg PO DAILY #30 tablet 10/27/18 Spironolactone [Aldactone] 50 mg PO DAILY #30 tablet 10/27/18 Allergies Allergy/AdvReac Type Severity Reaction Status Date / Time adhesive tape Allergy Rash Verified 10/27/18 14:11 bacitracin Allergy Rash Verified 10/27/18 14:11 [From Neosporin ([id number])] Neomycin Allergy Rash Verified 10/27/18 14:11 [From Neosporin ([id number])] polymyxin B Allergy Rash Verified 10/27/18 14:11 [From Neosporin ([id number])] Sulfa (Sulfonamide Allergy Rash Verified 10/27/18 14:11 Antibiotics) Review of Systems: As Per HPI Constitutional: Reports: weakness. Denies: fever, chills, weight change Eyes: Denies: eye pain, vision change ENT ED: Denies: ear pain, hearing loss, congestion, dysphagia Cardiovascular: Reports: edema. Denies: chest pain, palpitations, dyspnea on exertion, syncope Respiratory: Reports: dyspnea. Denies: cough, wheezes, hemoptysis, sputum production Gastrointestinal: Reports: nausea, vomiting, constipation. Denies: abdominal pain, diarrhea, hematemesis, melena, hematochezia Genitourinary: Reports: dysuria. Denies: urgency, frequency, hematuria Musculoskeletal: Reports: back pain. Denies: neck pain, joint swelling, arthralgia, myalgia Integumentary: Reports: lesions. Denies: rash, abrasion Neurological: Reports: weakness, paresthesias, abnormal gait. Denies: headache, numbness Psychiatric: Denies: anxiety, depression Endocrine: Denies: fatigue, heat or cold intolerance Hematological/Lymphatic: Denies: easy bleeding, easy bruising Allergic/Immunologic: Denies: urticaria Past Medical History - Past Medical History Medical history: Reports: arthritis, cancer, COPD, diabetes, hyperlipidemia, hypertension, liver disease Surgical history: Reports: appendectomy, orthopedic, other Psychiatric history: Reports: no psych history - Social History Smoking Status: Current every day smoker Smokeless Tobacco Status: No Alcohol use: Reports: none Drug use: Reports: none Physical Exam Gen.: Vitals noted. Mild distress. AAOx3, appears jaundiced, resting comfortably in bed. HEENT: PERRL/EOMI, scleral icterus present oropharynx clear, Normocephalic, atraumatic, MMM Neck: Supple. No adenopathy. No thyroid nodules. Trachea midline. Cardiac: RRR, no murmur, +S1/S2. Radial pulses 2+, dorsal pedis pulses 1+. Capillary refill less than 2 seconds. Bilateral 3+ pitting edema. Pulmonary: Diminished lung sounds bilaterally, CTA bilaterally, no wheezes, rales or rhonchi, equal chest expansion, unlabored breathing Abdomen: Distended, firm, nontender to palpation, BS noted, no guarding, no palpable HSM. Right upper quadrant scar from previous liver surgery present. Back: Nontender throughout. Skin: warm and dry, bilateral lower extremities are edematous, erythema present. Several small lesions over her calves bilaterally, lesion on back of left calf has been weeping. MSK: ROM intact, no joint swelling noted, gait no assessed while in bed. Non tender calf or clubbing Neuro: A&Ox3, moves all extremities, no focal deficits, sensation intact, CN2-12 intact Psych: Appropriate mood and behavior, AOx3 - General Limitations: no limitations General appearance: alert, in no apparent distress Course Course Narrative: Patient seen and examined at bedside, discussed history of present illness and PMH. Patient has had decreasing urinary output, small amounts of urine produced that are very dark in color which has been progressive over the past week. Patient states there is no change in bilateral lower extremity edema since starting Lasix 1 week ago. Patient unable to urinate to produce urine sample, will do a straight catheter. Will do chest x-ray, left foot x-ray as history of continued pain with left fourth toe fracture. Also U/A, BMP, CBC, LFTs, ammonia, lactic acid, troponins, and EKG. EKG- HR 82, normal sinus rhythm, normal axis. Normal intervals, RRR 732, MI 175, QT 403, QTC 471. No evidence of ST segment elevation or depression. There are abnormal inferior Q waves present in leads 2, 3, aVF. As well as flattening of T waves in V2 through V4. The abnormal inferior Q waves as well as flattening of the T waves seem unchanged from last EKG which was evaluated for comparison. Previous EKG from 01/17/2018. CXR- no acute cardiopulmonary disease, mild basilar atelectasis with elevation of the right hemidiaphragm. Right IJ chemotherapy port Left foot XR- unchanged alignment of minimally displaced fracture of the proximal phalanx of the fifth digit. BMP significant for hyponatremia, review of chart shows is a chronic low. She also was hyperkalemic at 6.2. And renal function shows BUN 51 and creatinine 1.47. CBC hemoglobin 12.5, review of chart shows this to be baseline. LFTs are elevated, AST 139, ALT 53, total bilirubin 4.9, direct bilirubin 2.7, indirect bilirubin 2.2. Alkaline phosphatase 367. Ammonia- 69 Troponins <0.03 EKG reviewed and does not show T changes secondary to hyperkalemia. Patient will be given calcium gluconate, insulin and D50 as well as 500 mg liter bolus of saline. We will also check PT/INR as well as right upper quadrant ultrasound. PT 13.5 INR 1.2 Liver U/S- numerous ill-defined mass lesions within the right hepatic lobe, measuring up to 1115 cm. Is compatible with history of cholangiocarcinoma. No evidence of intrahepatic or extrahepatic biliary dilation. Discussed case with hospitalist, hospitalist has accepted admission of this patient for elevated ammonia, SHRUTHI, edema, and decreased urine output. Vital Signs Temperature 97.7 F 11/02/18 15:50 Pulse Rate 85 11/02/18 15:50 Respiratory Rate 16 11/02/18 15:50 Blood Pressure 117/64 11/02/18 15:50 O2 Sat by Pulse Oximetry 95 11/02/18 15:50 Temperature 97.7 F 11/02/18 15:50 Pulse Rate 97 11/02/18 19:15 Respiratory Rate 16 11/02/18 19:15 Blood Pressure 124/68 11/02/18 19:15 O2 Sat by Pulse Oximetry 97 11/02/18 19:15 Oxygen Delivery Oxygen Delivery Room Air Medical Decision Making - Medical Records Medical records reviewed: Yes I reviewed the patient's medical records. - Lab Data Lab results reviewed: Yes I reviewed the patient's lab results. Result diagrams: 11/02/18 17:18 11/02/18 21:07 Lab Results 11/02/18 11/02/18 11/02/18 Range/Units 17:18 17:18 17:18 WBC 11.1 (4.3-11.1) K/mcL RBC 4.16 L (4.19-5.50) M/mcL Hgb 12.5 L (12.9-16.9) g/dL Hct 36.3 L (37.5-50.1) % MCV 87.3 (83.0-100.0) fL MCH 30.0 (28.0-33.3) pg MCHC 34.4 (31.6-35.5) g/dL RDW 24.2 H (11.5-14.5) % Plt Count 168 (140-400) K/mcL MPV 11.1 (9.4-12.4) fL Immature Gran % 0.5 (0-4) % Seg Neutrophils % 71.5 % Lymphocytes % 13.4 % Monocytes % 13.0 % Eosinophils % 1.0 % Basophils % 0.6 % Neutrophils # 7.9 (1.6-8.9) K/mcL Lymphocytes # 1.5 (0.6-4.6) K/mcL Monocytes # 1.4 H (0.0-1.3) K/mcL Eosinophils # 0.1 (0.0-0.6) K/mcL Basophils # 0.1 (0.0-0.2) K/mcL Platelet Estimate Normal (Normal) Anisocytosis 2+ A (Not Present) Target Cells 2+ A (Not Present) PT (9.4-12.1) Seconds INR Sodium 128 L (136-145) mEq/L Potassium 6.2 H (3.5-5.1) mEq/L Chloride 93 L (98-107) mEq/L Carbon Dioxide 25 (23-29) mEq/L BUN 51 H (8-23) mg/dL Creatinine 1.47 H (0.70-1.30) mg/dL Est GFR ( Amer) 57 L (> 60) Est GFR (Non-Af Amer) 47 L (> 60) BUN/Creatinine Ratio 35 H (6-26) Glucose 145 H (70-105) mg/dL Calculated Osmolality 282 (280-300) Lactic Acid 3.7 H (0.5-2.2) mmol/L Calcium 11.4 H (8.6-10.3) mg/dL Total Bilirubin 4.9 H (0.3-1.0) mg/dL Direct Bilirubin 2.7 H (0.0-0.2) mg/dL Indirect Bilirubin 2.2 H (0.0-1.2) mg/dL AST 139 H (13-39) Units/L ALT 53 H (7-52) Units/L Alkaline Phosphatase 367 H (34-104) Units/L Ammonia (16-53) mcmol/L Troponin I < 0.03 (< 0.04) ng/mL B-Natriuretic Peptide (Less than 100) pg/mL Serum Total Protein 6.7 (6.4-8.9) g/dL Albumin 3.0 L (3.5-5.7) g/dL Globulin 3.7 H (2.4-3.5) g/dL Albumin/Globulin Ratio 0.8 L (1.1-2.2) Urine Color (Yellow) Urine Clarity (Clear) Urine pH (5.0-8.0) pH Units Ur Specific [place] (1.010-1.025) Urine Protein (Neg-Trace) mg/dL Urine Glucose (UA) (Normal) mg/dL Urine Ketones (Negative) mg/dL Urine Blood (Negative) Urine Nitrite (Negative) Urine Bilirubin (Negative) Urine Urobilinogen (Normal) mg/dL Ur Leukocyte Esterase (Negative) Ur Culture Indicated? (NO) 11/02/18 11/02/18 11/02/18 Range/Units 17:18 17:18 17:30 WBC (4.3-11.1) K/mcL RBC (4.19-5.50) M/mcL Hgb (12.9-16.9) g/dL Hct (37.5-50.1) % MCV (83.0-100.0) fL MCH (28.0-33.3) pg MCHC (31.6-35.5) g/dL RDW (11.5-14.5) % Plt Count (140-400) K/mcL MPV (9.4-12.4) fL Immature Gran % (0-4) % Seg Neutrophils % % Lymphocytes % % Monocytes % % Eosinophils % % Basophils % % Neutrophils # (1.6-8.9) K/mcL Lymphocytes # (0.6-4.6) K/mcL Monocytes # (0.0-1.3) K/mcL Eosinophils # (0.0-0.6) K/mcL Basophils # (0.0-0.2) K/mcL Platelet Estimate (Normal) Anisocytosis (Not Present) Target Cells (Not Present) PT 13.5 H (9.4-12.1) Seconds INR 1.2 Sodium (136-145) mEq/L Potassium (3.5-5.1) mEq/L Chloride (98-107) mEq/L Carbon Dioxide (23-29) mEq/L BUN (8-23) mg/dL Creatinine (0.70-1.30) mg/dL Est GFR ( Amer) (> 60) Est GFR (Non-Af Amer) (> 60) BUN/Creatinine Ratio (6-26) Glucose (70-105) mg/dL Calculated Osmolality (280-300) Lactic Acid (0.5-2.2) mmol/L Calcium (8.6-10.3) mg/dL Total Bilirubin (0.3-1.0) mg/dL Direct Bilirubin (0.0-0.2) mg/dL Indirect Bilirubin (0.0-1.2) mg/dL AST (13-39) Units/L ALT (7-52) Units/L Alkaline Phosphatase (34-104) Units/L Ammonia 69 H (16-53) mcmol/L Troponin I (< 0.04) ng/mL B-Natriuretic Peptide 57 (Less than 100) pg/mL Serum Total Protein (6.4-8.9) g/dL Albumin (3.5-5.7) g/dL Globulin (2.4-3.5) g/dL Albumin/Globulin Ratio (1.1-2.2) Urine Color (Yellow) Urine Clarity (Clear) Urine pH (5.0-8.0) pH Units Ur Specific [place] (1.010-1.025) Urine Protein (Neg-Trace) mg/dL Urine Glucose (UA) (Normal) mg/dL Urine Ketones (Negative) mg/dL Urine Blood (Negative) Urine Nitrite (Negative) Urine Bilirubin (Negative) Urine Urobilinogen (Normal) mg/dL Ur Leukocyte Esterase (Negative) Ur Culture Indicated? (NO) 11/02/18 11/02/18 Range/Units 17:52 18:30 WBC (4.3-11.1) K/mcL RBC (4.19-5.50) M/mcL Hgb (12.9-16.9) g/dL Hct (37.5-50.1) % MCV (83.0-100.0) fL MCH (28.0-33.3) pg MCHC (31.6-35.5) g/dL RDW (11.5-14.5) % Plt Count (140-400) K/mcL MPV (9.4-12.4) fL Immature Gran % (0-4) % Seg Neutrophils % % Lymphocytes % % Monocytes % % Eosinophils % % Basophils % % Neutrophils # (1.6-8.9) K/mcL Lymphocytes # (0.6-4.6) K/mcL Monocytes # (0.0-1.3) K/mcL Eosinophils # (0.0-0.6) K/mcL Basophils # (0.0-0.2) K/mcL Platelet Estimate (Normal) Anisocytosis (Not Present) Target Cells (Not Present) PT (9.4-12.1) Seconds INR Sodium (136-145) mEq/L Potassium 6.6 H* (3.5-5.1) mEq/L Chloride (98-107) mEq/L Carbon Dioxide (23-29) mEq/L BUN (8-23) mg/dL Creatinine (0.70-1.30) mg/dL Est GFR ( Amer) (> 60) Est GFR (Non-Af Amer) (> 60) BUN/Creatinine Ratio (6-26) Glucose (70-105) mg/dL Calculated Osmolality (280-300) Lactic Acid (0.5-2.2) mmol/L Calcium (8.6-10.3) mg/dL Total Bilirubin (0.3-1.0) mg/dL Direct Bilirubin (0.0-0.2) mg/dL Indirect Bilirubin (0.0-1.2) mg/dL AST (13-39) Units/L ALT (7-52) Units/L Alkaline Phosphatase (34-104) Units/L Ammonia (16-53) mcmol/L Troponin I (< 0.04) ng/mL B-Natriuretic Peptide (Less than 100) pg/mL Serum Total Protein (6.4-8.9) g/dL Albumin (3.5-5.7) g/dL Globulin (2.4-3.5) g/dL Albumin/Globulin Ratio (1.1-2.2) Urine Color Dark Yellow (Yellow) Urine Clarity Clear (Clear) Urine pH 5.5 (5.0-8.0) pH Units Ur Specific [place] 1.019 (1.010-1.025) Urine Protein Negative (Neg-Trace) mg/dL Urine Glucose (UA) Normal (Normal) mg/dL Urine Ketones Negative (Negative) mg/dL Urine Blood Negative (Negative) Urine Nitrite Negative (Negative) Urine Bilirubin Negative (Negative) Urine Urobilinogen Normal (Normal) mg/dL Ur Leukocyte Esterase Negative (Negative) Ur Culture Indicated? NO (NO) - Radiology Data Radiology results reviewed: Yes I reviewed the patient's radiology results. Chest X-Ray 11/02/18 17:09 IMPRESSION: No prior study available for comparison. No obvious acute cardiopulmonary disease. Mild basilar atelectasis with elevation right hemidiaphragm. Right IJ chemo port. D/ / Perez Tejeda MD / Perez Tejeda MD Interpreting Provider: Perez Tejeda MD Foot X-Ray 11/02/18 17:21 IMPRESSION: Unchanged alignment of the minimally displaced fracture of the proximal phalanx of the 5th digit. D/ / Selvin Soto MD / Selvin Soto MD Interpreting Provider: Selvni Soto MD Chest X-Ray 11/02/18 17:09 IMPRESSION: No prior study available for comparison. No obvious acute cardiopulmonary disease. Mild basilar atelectasis with elevation right hemidiaphragm. Right IJ chemo port. D/ / Perez Tejeda MD / Perez Tejeda MD Interpreting Provider: Perez Tejeda MD Foot X-Ray 11/02/18 17:21 IMPRESSION: Unchanged alignment of the minimally displaced fracture of the proximal phalanx of the 5th digit. D/ / Selvin Soto MD / Selvin Soto MD Interpreting Provider: Selvin Soto MD Liver Ultrasound 11/02/18 19:30 IMPRESSION: Numerous ill-defined mass lesions within the right hepatic lobe, measuring up to approximately 11 x 15 cm. This is compatible with the patient's history of cholangiocarcinoma. If evaluation for progression is desired, CT or MRI of the liver would be recommended. No evidence of intrahepatic or extrahepatic biliary dilation. D/ / Man Vergara MD / Man Vergara MD Interpreting Provider: Man Vergara MD - EKG Data EKG #1 EKG attestation: Yes I reviewed and interpreted this EKG. EKG results narrative: HR 82, normal sinus rhythm, normal axis. Normal intervals, RRR 732, MI 175, QT 403, QTC 471. No evidence of ST segment elevation or depression. There are abnormal inferior Q waves present in leads 2, 3, aVF as well as flattening of T waves in V2 through V4. He also has anterior ventricular conduction delay which is unchanged from previous. The abnormal inferior Q waves as well as flattening of the T waves seem unchanged from last EKG which was evaluated for comparison. Previous EKG from 01/17/2018. Attestation Statement - Attestation Attestation: I, Elijah Cuello, examined this patient and my medical decision-making was reviewed with the IVORY POLISHER/PA/Advanced Practice Nurse/Resident Physician. I agree with the documented findings, disposition and treatment plan as described except to the extent set forth below. 68-year-old male presents emergency Department with concerns of multiple complaints. Patient's main concern is that he has pain to the fifth digit of the left foot. Patient states he had a follicle days ago which started causes pain. X-ray showed a fracture of the fifth phalanx. Patient has jaundiced on exam. He states that he has been increasingly weak and fatigued. Family is present who state that he has been increasingly confused. Family states he is also had increasing tremor. Laboratory evaluation shows increased worsening of his liver function tests. Patient has worsening of his kidney function likely from taking Lasix over the past week which was prescribed by his oncologist. Patient will be admitted to the hospitalist for further care and evaluation.
[2018-11-02 17:43] LABS: Basophils # 0.1 K/mcL (0.0-0.2); Basophils % 0.6 %; Eosinophils # 0.1 K/mcL (0.0-0.6); Hematocrit 36.3 % (37.5-50.1); Hemoglobin 12.5 g/dL (12.9-16.9); Immature Granulocytes % 0.5 % (0-4); Lymphocytes # 1.5 K/mcL (0.6-4.6); Lymphocytes % 13.4 %; Mean Corpuscular HGB Conc 34.4 g/dL (31.6-35.5); Mean Corpuscular Volume 87.3 fL (83.0-100.0); Mean Platelet Volume 11.1 fL (9.4-12.4); Monocytes # 1.4 K/mcL (0.0-1.3); Neutrophils # 7.9 K/mcL (1.6-8.9); Platelet Count 168 K/mcL (140-400); Red Blood Count 4.16 M/mcL (4.19-5.50); Red Cell Distribution Width 24.2 % (11.5-14.5); Segmented Neutrophils % 71.5 %
[2018-11-02 18:04] LABS: Bilirubin,Urine Negative (Negative); Blood,Urine Negative (Negative); Clarity,Urine Clear (Clear); Color,Urine Dark Yellow (Yellow); Glucose,Urine (UA) Normal (Normal); Ketones,Urine Negative (Negative); Leukocyte Esterase,Urine Negative (Negative); Nitrite,Urine Negative (Negative); PH,Urine 5.5 pH Units (5.0-8.0); Protein,Urine Negative (Neg-Trace); Specific Gravity,Urine 1.019 (1.010-1.025); Urobilinogen,Urine Normal (Normal)
[2018-11-02 18:06] LABS: Alanine Aminotransferase 53 Units/L (7-52); Albumin/Globulin Ratio 0.8 (1.1-2.2); Alkaline Phosphatase 367 Units/L (34-104); Aspartate Amino Transferase 139 Units/L (13-39); BUN/Creatinine Ratio 35 (6-26); Bilirubin,Direct 2.7 mg/dL (0.0-0.2); Bilirubin,Indirect 2.2 mg/dL (0.0-1.2); Bilirubin,Total 4.9 mg/dL (0.3-1.0); Blood Urea Nitrogen 51 mg/dL (8-23); Calcium 11.4 mg/dL (8.6-10.3); Carbon Dioxide 25 mEq/L (23-29); Chloride 93 mEq/L (98-107); Globulin 3.7 g/dL (2.4-3.5); Glucose 145 mg/dL (70-105); Osmolality,Calculated 282 (280-300); Potassium 6.2 mEq/L (3.5-5.1); Sodium 128 mEq/L (136-145); Total Protein 6.7 g/dL (6.4-8.9); Troponin I < 0.03 ng/mL (< 0.04); eGFR For Non-African Americans 47 (> 60)
[2018-11-02 18:09] LABS: Anisocytosis 2+ (Not Present); Target Cells 2+ (Not Present)
[2018-11-02 18:10] LABS: Platelet Estimate Normal (Normal)
[2018-11-02] MEDS ORDERED: Insulin Human Regular 10 UNIT in 0.9 % Sodium Chloride 10 ML IV ONE ×2 (18:58→20:53)
[2018-11-02] MEDS ORDERED: *HR* Dextrose 50 % in Water (Syg) 50 ML SYRINGE IVP ONE ×2 (18:58→20:53)
[2018-11-02] MEDS ORDERED: 0.9 % Sodium Chloride 500 ML IVC ONE (19:16)
[2018-11-02 19:58] LABS: INR 1.2; Prothrombin Time 13.5 Seconds (9.4-12.1)
[2018-11-02] MEDS ORDERED: Naloxone 0.4 MG/ML INJ IVP PRN (20:20)
[2018-11-02] MEDS ORDERED: Ondansetron 4 MG/2 ML VIAL IVP PRN (20:34)
--- NOTE | 2018-11-02 20:34 | Internal Med History&Physical ---
<Jhoan Pandey W - Last Filed: 11/02/18 23:05> Date of Encounter: 11/02/18 Time of Encounter: 20:25 Internal Medicine - H&P: HPI Chief complaint: Decreased urine output Admitted From: Home History of present illness: Mr. Verduzco is a 68 year old male with a past medical history of cholangiocarcinoma, liver cancer, COPD, diabetes, hypertension presents to the ED with 2 weeks of decreased urine output. Patient states on 10/16/18 he had a fall and broke his left fourth digit lower extremity. Since then he has had increased lower extremity edema bilaterally. Symmetric excretion one week ago was given an antibiotic and Lasix for swelling. Since that time he has had difficulty urinating. He has had very low volumes and has increased frequency. Patient states his urine is also become a lot darker. Patient denies any dysuria. Patient also states he has had difficulty walking has uses walker at all times now. Feels weak. Patient's also reports the patient seemed confused over the past week. Patient states for about 10 days he has been throwing up roughly 2 times per day. Has been feeling nauseous. He is able to keep some food down and some liquids but not but he is normally taking. Patient has not had any diarrhea. No hematemesis. For the past 2 weeks patient also states he has increased tremors in his hands. He has some shaking baseline. They are much worse. States that the doctors appointment was unable to hold a cup of coffee. Patient does admit to numbness and tingling in his lower extremities since this is due to peripheral neuropathy. Patient denies any fever, chills, dizziness, headache, vision changes, abdominal pain, calf pain, any area of focal weakness. Past Med Surg Social Fam HX - Past Medical History Medical history: arthritis, cancer, COPD, diabetes, hyperlipidemia, hypertension, liver disease Additional medical history: PVD, DM, Hptn, Hyperlipidemia, peripheral neuropathy, gastric ulcer, cx back pain, arthritis, lichen simplex chronicus, lung nodules. LIVER MASS Psychiatric history: no psych history - Past Surgical History Surgical History: appendectomy, orthopedic, other Additional surgical history: 01/12 Had GB and part of liver removed. - Social History Smoking Status: Current every day smoker Smokeless Tobacco Status: No Alcohol use: none Drug use: none - Family History Maternal Grandfather Living Status: Hx Family Cancer: Yes (colon) Sister Living Status: Hx Family Cardiac Disorders: Yes (CHF) Internal Medicine - H&P: Meds Aspirin 81 mg PO DAILY 08/14/16 [History] metFORMIN [Glucophage] 500 mg PO BIDWM 08/14/16 [History] Dapagliflozin Propanediol [Farxiga] 10 mg PO DAILY 09/20/16 [History] Liraglutide [Victoza 2-Justin] 1.8 mg SQ DAILY 09/20/16 [History] Lovastatin 40 mg PO DAILY 09/20/16 [History] Montelukast [Singulair] 10 mg PO DAILY PRN 09/20/16 [History] [place]-3/Dha/Epa/Fish Oil [Fish Oil 1,000 mg Softgel] 1,200 mg PO BID 10/11/16 [History] Tiotropium [Spiriva] 1 cap IH DAILY 10/11/16 [History] Vitamin E 400 unit PO DAILY 10/11/16 [History] Albuterol Sulfate [Ventolin Hfa] 2 puff IH Q6H PRN 01/18/18 [History] Docusate Sodium [Dok] 100 mg PO BID 01/18/18 [History] Polyethylene Glycol 3350 [MiraLAX Powder Bulk 17.9 Oz] 1 scoop PO DAILY PRN 01/18/18 [History] Metoprolol [Lopressor] 25 mg PO BID #60 tablet 01/23/18 [Rx] Oxycodone HCl [Oxaydo] 5 mg PO AD PRN 03/16/18 [History] Gabapentin [Neurontin] 400 mg PO QID 03/23/18 [History] Ondansetron ODT [Zofran ODT] 4 mg SL Q6HR #20 tab.rapdis 03/23/18 [Rx] Lidocaine/Prilocaine [Emla] 1 appl TP AD #30 gm 04/15/18 [Rx] Cholecalciferol (Vitamin D3) [Vitamin D3] 10,000 unit PO DAILY 06/24/18 [History] Folic Acid 1 mg PO DAILY 06/24/18 [History] Magnesium Oxide [Magnesium] 600 mg PO HS 09/23/18 [History] Cephalexin [Keflex] 500 mg PO TID #21 capsule 10/27/18 [Rx] Furosemide [Lasix] 40 mg PO DAILY #30 tablet 10/27/18 [Rx] Spironolactone [Aldactone] 50 mg PO DAILY #30 tablet 10/27/18 [Rx] Allergy/AdvReac Type Severity Reaction Status Date / Time adhesive tape Allergy Rash Verified 10/27/18 14:11 bacitracin Allergy Rash Verified 10/27/18 14:11 [From Neosporin ([id number])] Neomycin Allergy Rash Verified 10/27/18 14:11 [From Neosporin ([id number])] polymyxin B Allergy Rash Verified 10/27/18 14:11 [From Neosporin ([id number])] Sulfa (Sulfonamide Allergy Rash Verified 10/27/18 14:11 Antibiotics) All Systems PM: A 10-system review of systems was performed and is negative for pertinent findings except as documented above in the HPI. - Constitutional Constitutional: as per HPI - EENT Eyes: as per HPI - Cardiovascular Cardiovascular ROS IM: as per HPI - Respiratory Respiratory: as per HPI - Gastrointestinal Gastrointestinal: as per HPI - Genitourinary Genitourinary ROS male: as per HPI - Musculoskeletal Musculoskeletal ROS IM: as per HPI - Integumentary Integumentary IM: unusual bruising, no new lesions - Neurological Neurological ROS: as per HPI - Psychiatric Psychiatric: as per HPI - Endocrine Endocrine IM: as per HPI - Constitutional Vitals: Temp Pulse Resp BP Pulse Ox 97.7 F 97 16 124/68 97 11/02/18 15:50 11/02/18 19:15 11/02/18 19:15 11/02/18 19:15 11/02/18 19:15 General appearance: Present: A&O X 3, pleasant, obese Exam: Patient is laying in bed. He is A&O 3. He is pleasant and conversational slow to respond but answers appropriately. In no apparent distress - Head Head exam: Present: atraumatic, normocephalic - Eye Eye exam: Present: PERRL, scleral icterus (Mild), conjuntiva pink Pupils: Present: PERRL - Respiratory Respiratory exam: Present: CTAB. Absent: accessory muscle use, rales, rhonchi, wheezes - Cardiovascular Cardiovascular exam: Present: RRR, +S1, +S2. Absent: diastolic murmur, gallop, rubs, systolic murmur - GI/Abdominal GI/Abdominal exam: Present: distended, firm, hepatomegaly, normal bowel sounds, soft. Absent: guarding, hernia, mass, rebound, rigid - Extremities Exam Extremities exam: Present: pedal edema, warm, radial pulses palpable and symmetrical. Absent: calf tenderness, cyanotic - Neurological Exam Neurological exam: Present: CN II-XII intact, oriented X3, no focal deficits, strengths equal and symetr throughout. Absent: pronater drift, facial droop, speech deficit Additional comments: Mild tremor, - Psychiatric Psychiatric exam: Present: normal affect, normal mood - Skin Skin exam: Present: dry, intact, warm Additional comments: Multiple spider angioma Internal Med - H&P Results - Labs CBC & Chem 7: 11/02/18 17:18 11/02/18 21:07 Labs: Short CBC 11/02/18 Range/Units 17:18 WBC 11.1 (4.3-11.1) K/mcL Hgb 12.5 L (12.9-16.9) g/dL Hct 36.3 L (37.5-50.1) % Plt Count 168 (140-400) K/mcL Neutrophils # 7.9 (1.6-8.9) K/mcL BMP 11/02/18 11/02/18 17:18 18:30 Sodium 128 L Potassium 6.2 H 6.6 H* Chloride 93 L Carbon Dioxide 25 BUN 51 H Creatinine 1.47 H Glucose 145 H Calcium 11.4 H Cardiac Enzymes 11/02/18 Range/Units 17:18 Troponin I < 0.03 (< 0.04) ng/mL Liver Function 11/02/18 Range/Units 17:18 Total Bilirubin 4.9 H (0.3-1.0) mg/dL Direct Bilirubin 2.7 H (0.0-0.2) mg/dL AST 139 H (13-39) Units/L ALT 53 H (7-52) Units/L Alkaline Phosphatase 367 H (34-104) Units/L Albumin 3.0 L (3.5-5.7) g/dL Urine 11/02/18 Range/Units 17:52 Urine Color Dark Yellow (Yellow) Urine Clarity Clear (Clear) Urine pH 5.5 (5.0-8.0) pH Units Ur Specific [place] 1.019 (1.010-1.025) Urine Protein Negative (Neg-Trace) mg/dL Urine Glucose (UA) Normal (Normal) mg/dL - Impressions ITS Impressions Chest X-Ray 11/02/18 17:09 IMPRESSION: No prior study available for comparison. No obvious acute cardiopulmonary disease. Mild basilar atelectasis with elevation right hemidiaphragm. Right IJ chemo port. D/ / Perez Tejeda MD / Perez Tejeda MD Interpreting Provider: Perez Tejeda MD Foot X-Ray 11/02/18 17:21 IMPRESSION: Unchanged alignment of the minimally displaced fracture of the proximal phalanx of the 5th digit. D/ / Selvin Soto MD / Selvin Soto MD Interpreting Provider: Selvin Soto MD - Assessment and plan (1) Hyperkalemia Current Visit: Yes Status: Acute Assessment and plan: Elevated potassium of 6.2 and repeat 6.6 Insulin with D5 and calcium gluconate started emergency department. Likely from recent Aldactone Patient is recently been started on Lasix and Aldactone 1 week ago Plan: Sodium bicarbonate drip serial K+ q4 with appropriate management Discontinue Aldactone Kayexolate (2) Oliguria Current Visit: Yes Status: Acute Assessment and plan: Complaining of decrease in output and increased frequency over the past 1-2 weeks Improvement with IV fluids in ED Urine has been darker the past week of no patient started antibiotic prior to change Urinalysis negative Plan: gentle IV hydration Measure I's and O's Continue Lasix (3) SHRUTHI (acute kidney injury) Current Visit: Yes Status: Acute Assessment and plan: No known history of kidney disease Creatinine 1.47 his baseline is normal Likely due to dehydration from decreased by mouth intake and diuretic use Plan: IV hydration avoid nephrotoxins Continue to monitor (4) Fracture of toe of left foot Current Visit: Yes Status: Acute Assessment and plan: Fall on 10/16/18 X-ray found minimally displaced fracture of the proximal phalanx of the fifth digit Patient has had no orthopedic follow-up Plan Consider orthopedic consult Managed conservatively Qualifiers: Encounter type: subsequent encounter Toe: lesser toe Fracture type: closed Phalanx: proximal Fracture alignment: nondisplaced Fracture healing: with routine healing Qualified Code(s): S92.515D - Nondisplaced fracture of proximal phalanx of left lesser toe(s), subsequent encounter for fracture with routine healing (5) Edema extremities Current Visit: No Status: Acute Assessment and plan: Increased edema since 10/16/18 after patient full Lasix started with minimal change recent Ultrasound negative for DVT Antibiotic started for concern of cellulitis Plan Continue to monitor Monitor I&O's (6) Cholangiocarcinoma Current Visit: No Status: Acute Assessment and plan: History of cholangiocarcinoma and hepatocellular carcinoma first evidence of disease 2015 Liver ultrasound found Numerous ill-defined mass lesions within the right hepatic lobe, measuring up to approximately 11 x 15 cm. This is compatible with the patient's history of cholangiocarcinoma. No evidence of intrahepatic or extrahepatic biliary dilation. Last chemotherapy treatment 3 months ago Moderate ascites Palliative consult (7) History of liver cancer Current Visit: No Status: Chronic Assessment and plan: plan as #6 above (8) Elevated bilirubin Current Visit: Yes Status: Acute Assessment and plan: Total Bilirubin 4.9, direct 2.7, indirect 2.2, alkaline phosphatase 367, AST 139, ALT 53, PT 13.5 Likely due to worsening hepatocellular carcinoma Ultrasound did not find any biliary obstruction or dilation Plan: Continue to monitor Consider oncology consult (9) Hyperammonemia Current Visit: Yes Status: Acute Assessment and plan: Current ammonia 69 states patient has been slightly more confused over the past month. Low concern for hepatic encephalopathy at this point Continue to monitor and consider lactulose enema if needed (10) Type 2 diabetes mellitus Current Visit: No Status: Chronic Assessment and plan: Patient has recently been hypoglycemic The past month patient has stopped insulin and glipizide Patient was placed on insulin drip with D50 for hyperkalemia Continue to monitor no need for sliding scale insulin at this time Qualifiers: Diabetes mellitus assisted insulin use: with assisted use Diabetes mellitus complication status: without complication Qualified Code(s): E11.9 - Type 2 diabetes mellitus without complications; Z79.4 - jail (current) use of insulin (11) DVT prophylaxis Current Visit: No Status: Acute Assessment and plan: Heparin subq - Time Spent With Patient Total time spent is greater than 50% in coordination of care (as documented) at patient's floor/unit and/or counseling patient: <Kirstie Sewell A - Last Filed: 11/03/18 07:53> Date of Encounter: 11/03/18 Internal Medicine - H&P: HPI History of present illness: Mr. Verduzco is a 68 year old male All Systems PM: A 10-system review of systems was performed and is negative for pertinent findings except as documented above in the HPI. - Constitutional Vitals: Temp Pulse Resp BP Pulse Ox 99.1 F 97 17 113/69 95 11/03/18 07:21 11/03/18 07:21 11/03/18 07:21 11/03/18 07:21 11/03/18 07:21 Internal Med - H&P Results - Labs CBC & Chem 7: 11/03/18 04:25 11/03/18 04:25 Labs: Short CBC 11/02/18 11/03/18 Range/Units 17:18 04:25 WBC 11.1 12.2 H (4.3-11.1) K/mcL Hgb 12.5 L 11.9 L (12.9-16.9) g/dL Hct 36.3 L 35.2 L (37.5-50.1) % Plt Count 168 161 (140-400) K/mcL Neutrophils # 7.9 8.8 (1.6-8.9) K/mcL BMP 11/02/18 11/02/18 11/02/18 17:18 18:30 21:07 Sodium 128 L Potassium 6.2 H 6.6 H* 5.6 H Chloride 93 L Carbon Dioxide 25 BUN 51 H Creatinine 1.47 H Glucose 145 H Calcium 11.4 H 11/03/18 11/03/18 00:33 04:25 Sodium 127 L 130 L Potassium 6.1 H 5.4 H Chloride 98 95 L Carbon Dioxide 24 28 BUN 55 H 55 H Creatinine 1.43 H 1.49 H Glucose 150 H 124 H Calcium 11.2 H 11.5 H Cardiac Enzymes 11/02/18 Range/Units 17:18 Troponin I < 0.03 (< 0.04) ng/mL Liver Function 11/02/18 Range/Units 17:18 Total Bilirubin 4.9 H (0.3-1.0) mg/dL Direct Bilirubin 2.7 H (0.0-0.2) mg/dL AST 139 H (13-39) Units/L ALT 53 H (7-52) Units/L Alkaline Phosphatase 367 H (34-104) Units/L Albumin 3.0 L (3.5-5.7) g/dL Urine 11/02/18 Range/Units 17:52 Urine Color Dark Yellow (Yellow) Urine Clarity Clear (Clear) Urine pH 5.5 (5.0-8.0) pH Units Ur Specific [place] 1.019 (1.010-1.025) Urine Protein Negative (Neg-Trace) mg/dL Urine Glucose (UA) Normal (Normal) mg/dL - Impressions ITS Impressions Chest X-Ray 11/02/18 17:09 IMPRESSION: No prior study available for comparison. No obvious acute cardiopulmonary disease. Mild basilar atelectasis with elevation right hemidiaphragm. Right IJ chemo port. D/ / Perez Tejeda MD / Perez Tejeda MD Interpreting Provider: Perez Tejeda MD Foot X-Ray 11/02/18 17:21 IMPRESSION: Unchanged alignment of the minimally displaced fracture of the proximal phalanx of the 5th digit. D/ / Selvin Soto MD / Selvin Soto MD Interpreting Provider: Selvin Soto MD Liver Ultrasound 11/02/18 19:30 IMPRESSION: Numerous ill-defined mass lesions within the right hepatic lobe, measuring up to approximately 11 x 15 cm. This is compatible with the patient's history of cholangiocarcinoma. If evaluation for progression is desired, CT or MRI of the liver would be recommended. No evidence of intrahepatic or extrahepatic biliary dilation. D/ / Man Vergara MD / Man Vergara MD Interpreting Provider: Man Vergara MD - Time Spent With Patient Total time spent is greater than 50% in coordination of care (as documented) at patient's floor/unit and/or counseling patient: - Attending Attestation I performed a history and physical examination of the patient and discussed his management with the resident I reviewed the resident's note and agree with the assessment and plan of care. I reviewed the resident's note and agree with the assessment and plan of care. Patient is a 68-year-old gentleman with multiple comorbidities significant for hepatocellular carcinoma/cholangiocarcinoma with poor prognosis who presents to the ED with decreased urine output. Patient was recently seen by his oncologist and found to have progression of his edema; patient was subsequent restarted on Lasix and spironolactone. On arrival laboratory workup was notable for acute kidney injury, hyperkalemia of 6.2 and an elevated total bilirubin. No reports of chest pain or EKG changes. He was also found to have a mildly elevated ammonia level. Patient was given calcium gluconate, 1 L fluid bolus and insulin with dextrose. Case discussed with Dr. Fontana with nephrology recommending 60 mg of Kayexalate and bicarbonate drip. Potassium is since then responded. We will also give lactulose. Review of last oncology note shows left expectancy of 3-6 months and discussion of hospice care. Patient comes from the [place] and at that time [facility]. Patient amenable to palliative care consult.
[2018-11-02] MEDS ORDERED: Sod Bicarb 150mEq/D5W 150 MEQ/1,000 ML IV.SOLN IVC SCH (20:45)
[2018-11-02] MEDS ORDERED: Sodium Bicarbonate 150 MEQ in D5% in Water 1,000 ML IVC SCH (21:30)
[2018-11-02] MEDS: *HR* Heparin 5,000 UNIT/ML VIAL SQ SCH (23:39)
[2018-11-03 01:04] LABS: Calcium 11.2 mg/dL (8.6-10.3); Potassium 6.1 mEq/L (3.5-5.1)
[2018-11-03 05:00] LABS: Basophils # 0.1 K/mcL (0.0-0.2); Basophils % 0.7 %; Eosinophils # 0.1 K/mcL (0.0-0.6); Eosinophils % 0.7 %; Hematocrit 35.2 % (37.5-50.1); Hemoglobin 11.9 g/dL (12.9-16.9); Immature Granulocytes % 0.6 % (0-4); Lymphocytes # 1.4 K/mcL (0.6-4.6); Lymphocytes % 11.8 %; Mean Corpuscular HGB Conc 33.8 g/dL (31.6-35.5); Mean Corpuscular Hemoglobin 29.7 pg (28.0-33.3); Mean Corpuscular Volume 87.8 fL (83.0-100.0); Mean Platelet Volume 11.4 fL (9.4-12.4); Monocytes # 1.7 K/mcL (0.0-1.3); Monocytes % 14.2 %; Neutrophils # 8.8 K/mcL (1.6-8.9); Nucleated Red Blood Cells 0.2 /100 WBC (0); Platelet Count 161 K/mcL (140-400); Red Blood Count 4.01 M/mcL (4.19-5.50); Red Cell Distribution Width 24.5 % (11.5-14.5)
[2018-11-03 05:12] LABS: Calcium 11.5 mg/dL (8.6-10.3); Potassium 5.4 mEq/L (3.5-5.1)
[2018-11-03 06:06] LABS: Platelet Estimate Slight Decrease (Normal)
[2018-11-03 06:07] LABS: Target Cells 2+ (Not Present)
[2018-11-03] MEDS ORDERED: Lactulose Oral Soln 20 GM/30 ML UDC PO ONE (06:26)
--- NOTE | 2018-11-03 08:11 | Internal Med Progress Note ---
Hospitalist Progress Note - Encounter Date of Encounter: 11/03/18 Time of Encounter: 08:10 - Subjective Interval History: 68 year old male with a past medical history of cholangiocarcinoma, liver cancer, COPD, diabetes, hypertension presents to the ED with 2 weeks of decreased urine output. Patient states on 10/16/18 he had a fall and broke his left fourth digit lower extremity. Since then he has had increased lower extremity edema bilaterally. Symmetric excretion one week ago was given an antibiotic and Lasix for swelling. Since that time he has had difficulty urinating. He has had very low volumes and has increased frequency. Patient states his urine is also become a lot darker. Patient denies any dysuria. Patient also states he has had difficulty walking has uses walker at all times now. Feels weak. Patient's also reports the patient seemed confused over the past week. - Exam Vitals: Temp Pulse Resp BP Pulse Ox 99.1 F 97 17 113/69 95 11/03/18 07:21 11/03/18 07:21 11/03/18 07:21 11/03/18 07:21 11/03/18 07:21 Exam: Gen - Awake, alert, oriented x 3, no acute distress HEENT - NCAT, PERRLA, EOMI, hearing grossly intact, oropharynx benign CV - RRR, normal S1 and S2, no M/R/G, no BLE edema Resp - Normal WOB, CTAB, no W/R/R GI - distended abdomen, tympanitic Skin - Warm, dry, no rashes/lesions/ulcers Psych - Normal mood and affect, no depression or anxiety - Assessment and Plan (1) Oliguria Current Visit: Yes Status: Acute Assessment and Plan: Pt comes in with weakness and decreased urination. HAs been taking lasix and spironolactone. Also has abdominal distention Patient also has an SHRUTHI. Received IV fluid hydration overnight. Still oliguric this am and has pitting edema and distended abdomen Will d/c IV fluids, obtain CT abdomen to evaluate for ascites, hydronephrosis or any ureteral obstruction Hold lasix and spironolactone (2) Hyperkalemia Current Visit: Yes Status: Acute Assessment and Plan: Pt was hyperkalemic on admission with potassium of 6.6. Received kayexalate and sodium bicarbonate overnight Potassium was 5.4 this am. Gave another dose of kayexalate this am. Repeat potassium. Appreciate renal recs (3) SHRUTHI (acute kidney injury) Current Visit: Yes Status: Acute Assessment and Plan: Was administered fluid boluses and maintenance fluid overnight Obtain CT abdomen. Nephrology following and appreciate recs (4) Cholangiocarcinoma Current Visit: Yes Status: Acute Assessment and Plan: Pt has cholangiocarcinoma vs hepatocellular carcinoma and is currently in hospice. Has decline further chemotherapy Patient has new abdominal distention, obtain CT abdomen to r/o ascites (5) Fracture of toe of left foot Current Visit: Yes Status: Acute Assessment and Plan: Podiatry consulted and appreciate recs (6) Abdominal distention Current Visit: Yes Status: Acute Assessment and Plan: Pt has cholangiocarcinoma vs hepatocellular carcinoma and is currently in hospice. Has decline further chemotherapy Patient has new abdominal distention, obtain CT abdomen to r/o ascites (7) Type 2 diabetes mellitus Current Visit: Yes Status: Chronic Assessment and Plan: Continue insulin and monitor fingersticks (8) DVT prophylaxis Current Visit: Yes Status: Acute Assessment and Plan: Heparin sc - Time Spent with Patient Total time spent is greater than 50% in coordination of care (as documented) at patient's floor/unit and/or counseling patient: Internal Medicine: Result - Labs CBC & Chem 7: 11/03/18 04:25 11/03/18 04:25 Labs: Short CBC 11/02/18 11/03/18 Range/Units 17:18 04:25 WBC 11.1 12.2 H (4.3-11.1) K/mcL Hgb 12.5 L 11.9 L (12.9-16.9) g/dL Hct 36.3 L 35.2 L (37.5-50.1) % Plt Count 168 161 (140-400) K/mcL Neutrophils # 7.9 8.8 (1.6-8.9) K/mcL BMP 11/02/18 11/02/18 11/02/18 17:18 18:30 21:07 Sodium 128 L Potassium 6.2 H 6.6 H* 5.6 H Chloride 93 L Carbon Dioxide 25 BUN 51 H Creatinine 1.47 H Glucose 145 H Calcium 11.4 H 11/03/18 11/03/18 00:33 04:25 Sodium 127 L 130 L Potassium 6.1 H 5.4 H Chloride 98 95 L Carbon Dioxide 24 28 BUN 55 H 55 H Creatinine 1.43 H 1.49 H Glucose 150 H 124 H Calcium 11.2 H 11.5 H Cardiac Enzymes 11/02/18 Range/Units 17:18 Troponin I < 0.03 (< 0.04) ng/mL Liver Function 11/02/18 Range/Units 17:18 Total Bilirubin 4.9 H (0.3-1.0) mg/dL Direct Bilirubin 2.7 H (0.0-0.2) mg/dL AST 139 H (13-39) Units/L ALT 53 H (7-52) Units/L Alkaline Phosphatase 367 H (34-104) Units/L Albumin 3.0 L (3.5-5.7) g/dL Urine 11/02/18 Range/Units 17:52 Urine Color Dark Yellow (Yellow) Urine Clarity Clear (Clear) Urine pH 5.5 (5.0-8.0) pH Units Ur Specific [place] 1.019 (1.010-1.025) Urine Protein Negative (Neg-Trace) mg/dL Urine Glucose (UA) Normal (Normal) mg/dL - ABG Interpretation ABG results: PT/INR, D-dimer PT 13.5 Seconds (9.4-12.1) H 11/02/18 17:18 - Impressions Impressions Chest X-Ray 11/02/18 17:09 IMPRESSION: No prior study available for comparison. No obvious acute cardiopulmonary disease. Mild basilar atelectasis with elevation right hemidiaphragm. Right IJ chemo port. D/ / Perez Tejeda MD / Perez Tejeda MD Interpreting Provider: Perez Tejeda MD Foot X-Ray 11/02/18 17:21 IMPRESSION: Unchanged alignment of the minimally displaced fracture of the proximal phalanx of the 5th digit. D/ / Selvin Soto MD / Selvin Soto MD Interpreting Provider: Selvin Soto MD Liver Ultrasound 11/02/18 19:30 IMPRESSION: Numerous ill-defined mass lesions within the right hepatic lobe, measuring up to approximately 11 x 15 cm. This is compatible with the patient's history of cholangiocarcinoma. If evaluation for progression is desired, CT or MRI of the liver would be recommended. No evidence of intrahepatic or extrahepatic biliary dilation. D/ / Man Vergara MD / Man Vergara MD Interpreting Provider: Man Vergara MD Consult Discharge Plan - Plan Referrals: Elizabeth Arcos MD [Primary Care Provider] - (5) Fracture of toe of left foot Qualifiers: Encounter type: subsequent encounter Toe: lesser toe Fracture type: closed Phalanx: proximal Fracture alignment: nondisplaced Fracture healing: with routine healing Qualified Code(s): S92.515D - Nondisplaced fracture of proximal phalanx of left lesser toe(s), subsequent encounter for fracture with routine healing (7) Type 2 diabetes mellitus Qualifiers: Diabetes mellitus long chain beamer insulin use: with long chain beamer use Diabetes mellitus complication status: without complication Qualified Code(s): E11.9 - Type 2 diabetes mellitus without complications; 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
[2018-11-03] MEDS: *HR* Heparin 5,000 UNIT/ML VIAL SQ SCH ×2 (09:17→16:14)
[2018-11-03] MEDS: Gabapentin 400 MG CAPSULE PO SCH ×2 (09:18→09:32)
[2018-11-03] MEDS: Aspirin 81 MG TAB.CHEW PO SCH (09:18)
[2018-11-03] MEDS: (Omega-3/Dha/Epa/Fish Oil [Fish Oil 1,000 Mg Softgel] PO SCH ×2 (09:20→21:12)
[2018-11-03] MEDS: Lactulose Oral Soln 20 GM/30 ML UDC PO SCH ×3 (09:22→20:56)
[2018-11-03 09:44] LABS: Albumin 2.9 g/dL (3.5-5.7); Albumin/Globulin Ratio 0.9 (1.1-2.2); Bilirubin,Direct 3.1 mg/dL (0.0-0.2); Bilirubin,Indirect 1.9 mg/dL (0.0-1.2); Globulin 3.3 g/dL (2.4-3.5); Total Protein 6.2 g/dL (6.4-8.9)
[2018-11-03] MEDS: cefTRIAXone 1,000 MG in Water for inj. (sterile) 20 ML 10 ML IVP SCH (09:51)
[2018-11-03] MEDS: Gabapentin 300 MG CAPSULE PO SCH ×3 (10:03→20:55)
[2018-11-03] MEDS: Tiotropium 18 MCG inhalation IH SCH (11:00)
--- NOTE | 2018-11-03 13:47 | Palliative - Consult Note ---
Date of Encounter: 11/03/18 Time of Encounter: 11:00 - Assessment and Plan (1) Goals of care, counseling/discussion Current Visit: Yes Status: Acute Assessment and plan: Initially conducted goals of care meeting with patient's , as patient had just fallen asleep and inquiring further information regarding hospice care at home. Conducted brief review of services/equipment hospice can provide. Also explained limitation of time of hospice care. reports patient has been given prognosis of 3-6 months at appointment 2 weeks ago. Reports she was under the impression she didn't need hospice care yet. requested to give the patient a couple hours to rest and return for full goals of care conversation. 1300: Met with patient and patients Haleigh regarding goals of care moving forward. Patient already expressed he wanted no further cancer treatment and previously stated he wanted hospice care at home. thought patient had to be more advanced to qualify for hospice. Explained that patient is already a candidate for hospice care. reports previously had bad experience with [facility] and [facility]. Would like to bring contact information that she has at home tomorrow for 1 pm meeting to arrange with the company of her choosing. Explained Medicare pays for hospice care, would not need to go through [place] unless wanted to; verbalized understanding. Patient and agree they want to stay inpatient at [facility] until find cause of low urinary output and correct BLE edema, then discharge home with hospice care. Reviewed wishes for CODE STATUS, Haleigh would like patient changed to DNRCCA/DNI, fearful would not get "enough care" if patient was strictly DNRCC; patient in agreement. CODE STATUS changed to DNRCCA/DNI; State form completed. Updated Primary RN Gayatri of plan of care moving forward and CODE STATUS. Palliative will continue to follow for assistance in arranging discharge plann ing. (2) Pain, cancer Current Visit: Yes Status: Acute Assessment and plan: Patient reports some pain. Added Oxycodone (at home dosage) PRN. (3) Edema extremities Current Visit: Yes Status: Acute (4) Cholangiocarcinoma Current Visit: Yes Status: Acute Assessment and plan: Patient desires no further cancer treatment at this time. Palliative-CN HPI - Data of Consult Patient: new to practice Consult date: 05/03/19 Requesting Physician: Kirstie Sewell MD Primary Care Provider: Elizabeth Arcos - Consult Narrative Palliative Care/Comfort Measures: Palliative care History of present illness: Mr. Verduzco is a 68 year old male Arrived to [facility] on 11/02/18 for low urine output times 2 weeks. Per patient's historical report, patient had fallen on 10/16/18 and broke left 4th toe, resulting in increased BLE edema. Approximately o ne week ago, patient was evaluated by Dr. Navarro and prescribed antibiotic and trial of Lasix. After 1 week on Lasix, patient saw no improvement in edema, decreased urine output, infrequent urination, and small amounts of dark urine. PMH: Liver cancer s/p surgery/chemo/radiation, COPD, HTN, CM, Peripheral neuropathy, PVD, and Hyperlipidemia. Upon reviewing record from Cancer center, noted patient had decided at last appointment, he wanted no further chemo, radiation; interested in hospice care at home. Palliative care consult for Progression of Cholangiocarcinoma/hepatocellular carcinoma with poor prognosis. Patient resting in bed with eyes closed upon arrival for assessment. Patient noted to be quite lethargic. Reports "some pain" to be present, but unable to identify location. Patient reports lack of bowel movement times 3 days. Denies nausea, vomiting, dyspnea, and anxiety. Patient present at bedside. Upon arousal, patient alert and oriented times 3; able to participate in c onversation. CC: Kirstie Sewell MD - Time Spent with Patient Time: Total time spent is greater than 50% in coordination of care (as documented) at patient's floor/unit and/or counseling patient: Time with patient: 75 minutes (10 minute chart review. 20 minute meeting with , 30 minute meeting with patient and , 10 minute updating primary RN, 5 minute State form completion and filing.) Past Med Surg Social Fam HX - Past Medical History Medical history: arthritis, cancer, COPD, diabetes, hyperlipidemia, hypertension, liver disease Additional medical history: PVD, DM, Hptn, Hyperlipidemia, peripheral neuropathy, gastric ulcer, cx back pain, arthritis, lichen simplex chronicus, lung nodules. LIVER MASS Psychiatric history: no psych history - Past Surgical History Surgical History: appendectomy, orthopedic, other Additional surgical history: 01/12 Had GB and part of liver removed. - Social History Smoking Status: Current every day smoker Smokeless Tobacco Status: No Alcohol use: none Drug use: none - Family History Maternal Grandfather Living Status: Hx Family Cancer: Yes (colon) Sister Living Status: Hx Family Cardiac Disorders: Yes (CHF) Medications and Allergies Aspirin 81 mg PO DAILY 08/14/16 [History] metFORMIN [Glucophage] 500 mg PO BIDWM 08/14/16 [History] Dapagliflozin Propanediol [Farxiga] 10 mg PO DAILY 09/20/16 [History] Liraglutide [Victoza 2-Justin] 1.8 mg SQ DAILY 09/20/16 [History] Lovastatin 40 mg PO DAILY 09/20/16 [History] Montelukast [Singulair] 10 mg PO DAILY PRN 09/20/16 [History] [place]-3/Dha/Epa/Fish Oil [Fish Oil 1,000 mg Softgel] 1,200 mg PO BID 10/11/16 [History] Tiotropium [Spiriva] 1 cap IH DAILY 10/11/16 [History] Vitamin E 400 unit PO DAILY 10/11/16 [History] Albuterol Sulfate [Ventolin Hfa] 2 puff IH Q6H PRN 01/18/18 [History] Docusate Sodium [Dok] 100 mg PO BID 01/18/18 [History] Polyethylene Glycol 3350 [MiraLAX Powder Bulk 17.9 Oz] 1 scoop PO DAILY PRN 01/18/18 [History] Metoprolol [Lopressor] 25 mg PO BID #60 tablet 01/23/18 [Rx] Oxycodone HCl [Oxaydo] 5 mg PO AD PRN 03/16/18 [History] Ondansetron ODT [Zofran ODT] 4 mg SL Q6HR #20 tab.rapdis 03/23/18 [Rx] Lidocaine/Prilocaine [Emla] 1 appl TP AD #30 gm 04/15/18 [Rx] Cholecalciferol (Vitamin D3) [Vitamin D3] 10,000 unit PO DAILY 06/24/18 [History] Folic Acid 1 mg PO DAILY 06/24/18 [History] Magnesium Oxide [Magnesium] 600 mg PO HS 09/23/18 [History] Cephalexin [Keflex] 500 mg PO TID #21 capsule 10/27/18 [Rx] Furosemide [Lasix] 40 mg PO DAILY #30 tablet 10/27/18 [Rx] Spironolactone [Aldactone] 50 mg PO DAILY #30 tablet 10/27/18 [Rx] Gabapentin 600 mg PO TID 11/03/18 [History] Allergy/AdvReac Type Severity Reaction Status Date / Time adhesive tape Allergy Rash Verified 10/27/18 14:11 bacitracin Allergy Rash Verified 10/27/18 14:11 [From Neosporin ([id number])] Neomycin Allergy Rash Verified 10/27/18 14:11 [From Neosporin ([id number])] polymyxin B Allergy Rash Verified 10/27/18 14:11 [From Neosporin ([id number])] Sulfa (Sulfonamide Allergy Rash Verified 10/27/18 14:11 Antibiotics) - Constitutional Constitutional ROS PAL: fatigue, lethargy - Cardiovascular Cardiovascular ROS: dyspnea on exertion, no chest pain - Respiratory Respiratory: cough, dyspnea - Gastrointestinal Gastrointestinal: bloating, constipation, cramping, nausea, vomiting, no diar jeannette - Genitourinary Genitourinary ROS male: difficulty urinating, dysuria, urinary frequency - Musculoskeletal Musculoskeletal ROS IM: back pain - Integumentary ROS Integumentary: jaundice - Neurological Neurological ROS: lack of coordination, paresthesias, tremor(s), weakness - Psychiatric Psychiatric general PM: confusion, difficulty concentrating, no anxiety Palliative Care-Exam - Constitutional Vitals: Temp Pulse Resp BP Pulse Ox 97.7 F 97 18 95/54 94 11/03/18 11:45 11/03/18 11:45 11/03/18 11:45 11/03/18 11:45 11/03/18 11:45 General appearance: Present: disheveled, morbidly obese, no acute distress - Head Head Exam: Present: atraumatic, normal inspection - Eye Eye exam: Present: EOMI, normal appearance, PERRL, conjuntiva pink. Absent: nystagmus, periorbital swelling, periorbital tenderness - ENT ENT exam: Present: mucous membranes dry, normal external ear exam - Expanded ENT Exam Mouth Exam: Absent: drooling - Neck Neck exam: Present: full ROM, normal inspection - Respiratory Respiratory exam: Present: rhonchi, wheezes. Absent: accessory muscle use, respiratory distress - Cardiovascular Cardiovascular exam: Present: RRR, +S1, +S2 - Expanded Cardiovascular Exam Peripheral pulses: 2+: Radial (L), Radial (R), Posterior Tibialis (L), Posterior Tibialis (R), Dorsalis Pedis (L) PM, Dorsalis Pedis (R) PM - GI/Abdominal Exam GI/Abdominal exam: Present: distended, firm, hyperactive bowel sounds. Absent: tenderness - Expanded GI/Abdominal Exam GI/Abdominal exam: Present: ascites - Rectal Rectal Exam: Present: deferred - Extremities Exam Extremities exam: Present: pedal edema. Absent: calf tenderness, tenderness - Back Exam Back exam: Present: normal inspection - Neurological Exam Neurological exam: Present: alert, altered, oriented X3, strengths equal and symetr throughout. Absent: facial droop, speech deficit - Expanded Neurological Exam Patient oriented to: Present: person, place, time Coma Scale Eye Opening: To Voice Coma Scale Motor Response: Obeys Commands Coma Scale Verbal Response: Oriented Coma Scale Total: 14 - Psychiatric Psychiatric exam: Present: flat affect - Skin Skin exam: Present: dry, intact, warm. Absent: diaphoretic, normal color (jaundice), rash Internal Medicine - CN: Reslt - Labs CBC & Chem 7: 11/03/18 04:25 11/03/18 04:25 Labs: Short CBC 11/02/18 11/03/18 Range/Units 17:18 04:25 WBC 11.1 12.2 H (4.3-11.1) K/mcL Hgb 12.5 L 11.9 L (12.9-16.9) g/dL Hct 36.3 L 35.2 L (37.5-50.1) % Plt Count 168 161 (140-400) K/mcL Neutrophils # 7.9 8.8 (1.6-8.9) K/mcL BMP 11/02/18 11/02/18 11/02/18 17:18 18:30 21:07 Sodium 128 L Potassium 6.2 H 6.6 H* 5.6 H Chloride 93 L Carbon Dioxide 25 BUN 51 H Creatinine 1.47 H Glucose 145 H Calcium 11.4 H 11/03/18 11/03/18 00:33 04:25 Sodium 127 L 130 L Potassium 6.1 H 5.4 H Chloride 98 95 L Carbon Dioxide 24 28 BUN 55 H 55 H Creatinine 1.43 H 1.49 H Glucose 150 H 124 H Calcium 11.2 H 11.5 H Cardiac Enzymes 11/02/18 Range/Units 17:18 Troponin I < 0.03 (< 0.04) ng/mL Liver Function 11/02/18 11/03/18 Range/Units 17:18 04:25 Total Bilirubin 4.9 H 5.0 H (0.3-1.0) mg/dL Direct Bilirubin 2.7 H 3.1 H (0.0-0.2) mg/dL AST 139 H 150 H (13-39) Units/L ALT 53 H 58 H (7-52) Units/L Alkaline Phosphatase 367 H 353 H (34-104) Units/L Albumin 3.0 L 2.9 L (3.5-5.7) g/dL Urine 11/02/18 Range/Units 17:52 Urine Color Dark Yellow (Yellow) Urine Clarity Clear (Clear) Urine pH 5.5 (5.0-8.0) pH Units Ur Specific [place] 1.019 (1.010-1.025) Urine Protein Negative (Neg-Trace) mg/dL Urine Glucose (UA) Normal (Normal) mg/dL - ABG Interpretation ABG results: PT/INR, D-dimer PT 13.5 Seconds (9.4-12.1) H 11/02/18 17:18 - Impressions Impressions Chest X-Ray 11/02/18 17:09 IMPRESSION: No prior study available for comparison. No obvious acute cardiopulmonary disease. Mild basilar atelectasis with elevation right hemidiaphragm. Right IJ chemo port. D/ / Perez Tejeda MD / Perez Tejeda MD Interpreting Provider: Perez Tejeda MD Foot X-Ray 11/02/18 17:21 IMPRESSION: Unchanged alignment of the minimally displaced fracture of the proximal phalanx of the 5th digit. D/ / Selvin Soto MD / Selvin Soto MD Interpreting Provider: Selvin Soto MD Liver Ultrasound 11/02/18 19:30 IMPRESSION: Numerous ill-defined mass lesions within the right hepatic lobe, measuring up to approximately 11 x 15 cm. This is compatible with the patient's history of cholangiocarcinoma. If evaluation for progression is desired, CT or MRI of the liver would be recommended. No evidence of intrahepatic or extrahepatic biliary dilation. D/ / Man Vergara MD / Man Vergara MD Interpreting Provider: Man Vergara MD Consult Discharge Plan - Plan Referrals: Elizabeth Arcos MD [Primary Care Provider] - Palliative Quality Palliative Quality: Screen for Code Status: Yes, Screen for Goals of Care: Yes, Screen for Pain: Yes, If Pain Regimen Started, Initiate Bowel Regimen: Yes, Screen for Nausea/Vomitting: Yes Code Status: 11/02/18 20:20 Resuscitation Status: Active [RES] Routine Comment: Resuscitation Status: Full Code Palliative Scale - Palliative Performance Scale How ambulatory is this patient?: Mainly sit / lie What is patient's level of activity and evidence of disease?: Unable hobby/housework, Significant disease How much self-care assistance does patient require?: Considerable assistance required How much oral intake does the patient have?: Normal or reduced What is this patient's level of consciousness?: Full or drowsy with or without confusion Palliative Performance Score: 60 %
--- NOTE | 2018-11-03 14:13 | Nephrology Consult Note ---
Date of Encounter: 11/03/18 Time of Encounter: 14:03 Assessment and Plan (1) SHRUTHI (acute kidney injury) Current Visit: Yes Status: Acute Baseline GFR appears to be greater than 60. GFR today is 47. Multifactorial related to dehydration, chemo/radiation. Avoid nephrotoxins and renal dose. Strict I/O Renal diet (low potassium). Per palliative note, patient is going to make decision regarding hospice tomorrow. (2) Hyperkalemia Current Visit: Yes Status: Acute Potassium was 6.6, improved at 5.4. Urine electrolytes ordered. Has been given lactulose and kayexalate with no BM. Renal diet advised. (3) Cholangiocarcinoma Current Visit: Yes Status: Acute Per oncology/primary. (4) Edema extremities Current Visit: Yes Status: Acute Strict I/O. (5) Oliguria Current Visit: Yes Status: Acute Bladder scan ordered, no urine recorded entire hospital stay. Confirmed with RN. History of Present Illness - Reason for Consult Consult date: 11/03/18 hyperkalemia Requesting physician: Kirstie Sewell - Chief Complaint low urine output - History of Present Illness Mr. Verduzco is a 68 year old male who presented to ED with c/o of low urinary output. PMH: COPD, hypertension, diabetes, peripheral neuropathy, peripheral vascular disease and hyperlipidemia. S/P chemo/radiation for Cholangiocarcinoma and hepatocellular carcinoma. Potassium noted to be 6.6 on 11/02/18. Kayexalate and IVF given per Dr. Fontana. K is now 5.4. He is a DNRCC/DNI, and will likely make the choice to go home with hospice tomorrow. Palliative on board. Recommend renal low potassium diet. Hold Spironolactone. No urine output recorded, verified with primary nurse. I did order a bladder scan. Past Med Surg Social Fam HX - Past Medical History Medical history: arthritis, cancer, COPD, diabetes, hyperlipidemia, hypertension, liver disease Additional medical history: PVD, DM, Hptn, Hyperlipidemia, peripheral neuropathy, gastric ulcer, cx back pain, arthritis, lichen simplex chronicus, lung nodules. LIVER MASS Psychiatric history: no psych history - Past Surgical History Surgical History: appendectomy, orthopedic, other Additional surgical history: 01/12 Had GB and part of liver removed. - Social History Smoking Status: Current every day smoker Smokeless Tobacco Status: No Alcohol use: none Drug use: none - Family History Maternal Grandfather Living Status: Hx Family Cancer: Yes (colon) Sister Living Status: Hx Family Cardiac Disorders: Yes (CHF) Medications and Allergies Aspirin 81 mg PO DAILY 08/14/16 [History] metFORMIN [Glucophage] 500 mg PO BIDWM 08/14/16 [History] Dapagliflozin Propanediol [Farxiga] 10 mg PO DAILY 09/20/16 [History] Liraglutide [Victoza 2-Justin] 1.8 mg SQ DAILY 09/20/16 [History] Lovastatin 40 mg PO DAILY 09/20/16 [History] Montelukast [Singulair] 10 mg PO DAILY PRN 09/20/16 [History] [place]-3/Dha/Epa/Fish Oil [Fish Oil 1,000 mg Softgel] 1,200 mg PO BID 10/11/16 [History] Tiotropium [Spiriva] 1 cap IH DAILY 10/11/16 [History] Vitamin E 400 unit PO DAILY 10/11/16 [History] Albuterol Sulfate [Ventolin Hfa] 2 puff IH Q6H PRN 01/18/18 [History] Docusate Sodium [Dok] 100 mg PO BID 01/18/18 [History] Polyethylene Glycol 3350 [MiraLAX Powder Bulk 17.9 Oz] 1 scoop PO DAILY PRN 01/18/18 [History] Metoprolol [Lopressor] 25 mg PO BID #60 tablet 01/23/18 [Rx] Oxycodone HCl [Oxaydo] 5 mg PO AD PRN 03/16/18 [History] Ondansetron ODT [Zofran ODT] 4 mg SL Q6HR #20 tab.rapdis 03/23/18 [Rx] Lidocaine/Prilocaine [Emla] 1 appl TP AD #30 gm 04/15/18 [Rx] Cholecalciferol (Vitamin D3) [Vitamin D3] 10,000 unit PO DAILY 06/24/18 [Hi story] Folic Acid 1 mg PO DAILY 06/24/18 [History] Magnesium Oxide [Magnesium] 600 mg PO HS 09/23/18 [History] Cephalexin [Keflex] 500 mg PO TID #21 capsule 10/27/18 [Rx] Furosemide [Lasix] 40 mg PO DAILY #30 tablet 10/27/18 [Rx] Spironolactone [Aldactone] 50 mg PO DAILY #30 tablet 10/27/18 [Rx] Gabapentin 600 mg PO TID 11/03/18 [History] Allergy/AdvReac Type Severity Reaction Status Date / Time adhesive tape Allergy Rash Verified 10/27/18 14:11 bacitracin Allergy Rash Verified 10/27/18 14:11 [From Neosporin ([id number])] Neomycin Allergy Rash Verified 10/27/18 14:11 [From Neosporin ([id number])] polymyxin B Allergy Rash Verified 10/27/18 14:11 [From Neosporin ([id number])] Sulfa (Sulfonamide Allergy Rash Verified 10/27/18 14:11 Antibiotics) Review of Systems All Systems review (narrative): The remainder of the systems are negative. Constitutional: fatigue, no chills, no fever(s) Cardiovascular: dyspnea, edema, no chest pain Respiratory: dyspnea, no cough Gastrointestinal: abdominal pain, no change in bowel habits, no diarrhea, no nausea, no vomiting Genitourinary Male: difficulty urinating Exam - Vital Signs Vital signs: Initial Vital Signs Temp Pulse Resp BP Pulse Ox 97.7 F 85 16 117/64 95 11/02/18 15:50 11/02/18 15:50 11/02/18 15:50 11/02/18 15:50 11/02/18 15:50 Vital Signs - Last 8 Hours Temp Pulse Resp BP Pulse Ox 11/03/18 11:45 97.7 F 97 18 95/54 94 11/03/18 11:02 18 96 11/03/18 08:00 95 11/03/18 07:21 99.1 F 97 17 113/69 95 Intake and Output 11/02/18 11/03/18 11/03/18 23:59 07:59 15:59 Intake Total 620.1 / 620.1 120 / 120 Balance 620.1 / 620.1 120 / 120 Intake: IV Fluids 620.1 / 620.1 HumuLIN R 10 UNIT In Normal 10.1 / 10.1 Saline Flush 10 ML @ 1212 mls/ hr IV ONCE ONE Rx#:[id number] 0.9 % Sodium Chloride 500 ML @ 500 / 500 999 mls/hr IVC .Q31M ONE Rx#: [id number] Calcium Gluconate 1,000 MG In 0 110 / 110 .9 % Sodium Chloride 100 ML @ 220 mls/hr IVPB ONCE ONE Rx#: [id number] Oral 120 / 120 Other: Meal Breakfast Percent of Meal Consumed 100% Weight 100.4 kg Blood Glucose* 143 133 153 - General Appearance General appearance: fatigue, frail EENT: ATNC, hearing intact, vision intact, scleral icterus Neck: supple Respiratory: clear Cardiology: edema (+1 pitting edema noted to bilat lower extremities.), normal S1, normal S2 Gastrointestinal: normoactive bowel sounds, obese, distended Integumentary: no rash, warm and dry Neurologic: alert and oriented x3 Musculoskeletal: no deformities, no erythema Psychiatric: mood/affect appropriate, cooperative Results - Lab Results 11/03/18 04:25 11/03/18 04:25 Most recent lab results Calcium 11.5 mg/dL (8.6-10.3) H 11/03/18 04:25 Consult Discharge Plan - Plan Referrals: Elizabeth Arcos MD [Primary Care Provider] -
[2018-11-03] MEDS ORDERED: Dextrose 4 GM Chewable Tablets PO PRN ×2 (14:39)
[2018-11-03] MEDS ORDERED: Dextrose Gel 15 GM/37.5 ML TUBE PO PRN ×2 (14:39)
[2018-11-03] MEDS ORDERED: *HR* Dextrose 50 % in Water (Syg) 50 ML SYRINGE IVP PRN (14:39)
[2018-11-03] MEDS ORDERED: D5% in Water 1,000 ML IVC PRN (14:39)
--- NOTE | 2018-11-03 16:26 | Podiatry Consult Note ---
Date of Encounter: 11/04/18 Time of Encounter: 15:00 Assessment and Plan (1) Closed fracture of phalanx of left fifth toe Current visit: Yes Status: Acute Xray imaging obtained and fracture of fifth proximal phalynx is noted and stable PLAN: Patient is considering home with hospice care- DNR-CC arrest Edema is noted to BLE and does not appear related to fracture appears related to SHRUTHI- elevated creatine and BUN- suggest management of edema as per nephrology recommendations and once creatine has stabilized would recommend splinting of the 5th toe with roll gauze, coban and compression to the left foot to decrease edema Patient states that any boot or shoe gear for protection and offloading would be a safety hazard for the patient as he is very weak with ambulation and would like to conservatively manage. Will recheck edema tomorrow, if improvement is noted will apply compression. No fracture blisters, ecchymosis, signs of trauma or infection are noted to foot. Explained plan to family. Verbalized understanding. Foot X-Ray 11/02/18 17:21 IMPRESSION: Unchanged alignment of the minimally displaced fracture of the proximal phalanx of the 5th digit. D/ / Selvin Soto MD / Selvin Soto MD Interpreting Provider: Selvin Soto MD Qualifiers: Encounter type: subsequent encounter Fracture healing: with routine healing Qualified Code(s): S92.502D - Displaced unspecified fracture of left lesser toe(s), subsequent encounter for fracture with routine healing History of Present Illness HPI: Mr. Verduzco is a 68 year old male with a past medical history of cholangiocar cinoma, liver cancer, COPD, diabetes, hypertension presents to the ED with 2 weeks of decreased urine output. Patient is sleeping on arrival- is main historian. States patient has been intermittently awake but quickly drifts back to sleep. states on 10/16/18 he had a fall and broke his foot, he was evaluated by their cancer dr where xrays were obtained and he was made a outpatient visit with for today- he however has been admitted and missed appointment and has been consulted to our services or management of fracture. states that since the e has had increased lower extremity edema bilaterally and diminished urine output. also reports difficulty urinating. He has had very low volumes and has increased frequency. states that he guards foot with ambulation but does not complain of pain to the left foot. Past Med Surg Social Fam HX - Past Medical History Medical history: arthritis, cancer, COPD, diabetes, hyperlipidemia, hypertension, liver disease Additional medical history: PVD, DM, Hptn, Hyperlipidemia, peripheral neuropathy, gastric ulcer, cx back pain, arthritis, lichen simplex chronicus, lung nodules. LIVER MASS Psychiatric history: no psych history - Past Surgical History Surgical History: appendectomy, orthopedic, other Additional surgical history: 01/12 Had GB and part of liver removed. - Social History Smoking Status: Current every day smoker Smokeless Tobacco Status: No Alcohol use: none Drug use: none - Family History Maternal Grandfather Living Status: Hx Family Cancer: Yes (colon) Sister Living Status: Hx Family Cardiac Disorders: Yes (CHF) Medications and Allergies Aspirin 81 mg PO DAILY 08/14/16 [History] Dapagliflozin Propanediol [Farxiga] 10 mg PO DAILY 09/20/16 [History] Liraglutide [Victoza 2-Justin] 1.8 mg SQ DAILY 09/20/16 [History] Lovastatin 40 mg PO DAILY 09/20/16 [History] Montelukast [Singulair] 10 mg PO DAILY 09/20/16 [History] [place]-3/Dha/Epa/Fish Oil [Fish Oil 1,000 mg Softgel] 1,200 mg PO BID 10/11/16 [History] Tiotropium [Spiriva] 1 cap IH DAILY 10/11/16 [History] Vitamin E 400 unit PO DAILY 10/11/16 [History] Albuterol Sulfate [Ventolin Hfa] 2 puff IH Q6H PRN 01/18/18 [History] Docusate Sodium [Dok] 100 mg PO BID 01/18/18 [History] Polyethylene Glycol 3350 [MiraLAX Powder Bulk 17.9 Oz] 1 scoop PO DAILY PRN 03/02 [History] Metoprolol [Lopressor] 25 mg PO BID #60 tablet 01/23/18 [Rx] Oxycodone HCl [Oxaydo] 10 mg PO Q6H PRN 03/16/18 [History] Ondansetron ODT [Zofran ODT] 4 mg SL Q6HR #20 tab.rapdis 03/23/18 [Rx] Lidocaine/Prilocaine [Emla] 1 appl TP AD #30 gm 04/15/18 [Rx] Cholecalciferol (Vitamin D3) [Vitamin D3] 10,000 unit PO DAILY 06/24/18 [History] Folic Acid 1 mg PO DAILY 06/24/18 [History] Magnesium Oxide [Magnesium] 600 mg PO HS 09/23/18 [History] Cephalexin [Keflex] 500 mg PO TID #21 capsule 10/27/18 [Rx] Furosemide [Lasix] 40 mg PO DAILY #30 tablet 10/27/18 [Rx] Spironolactone [Aldactone] 50 mg PO DAILY #30 tablet 10/27/18 [Rx] Gabapentin 600 mg PO TID 11/03/18 [History] Metformin HCl [Glucophage Xr] 1,000 mg PO BID 11/03/18 [History] hydroCHLOROthiazide [Hydrochlorothiazide] 25 mg PO DAILY 11/03/18 [History] Allergy/AdvReac Type Severity Reaction Status Date / Time adhesive tape Allergy Rash Verified 10/27/18 14:11 bacitracin Allergy Rash Verified 10/27/18 14:11 [From Neosporin ([id number])] Neomycin Allergy Rash Verified 10/27/18 14:11 [From Neosporin ([id number])] polymyxin B Allergy Rash Verified 10/27/18 14:11 [From Neosporin ([id number]-lnabp)] Sulfa (Sulfonamide Allergy Rash Verified 10/27/18 14:11 Antibiotics) All Systems Reviewed: as per HPI Physical Exam - Constitutional Vitals: Temp Pulse Resp BP Pulse Ox 97.7 F 97 18 95/54 94 11/03/18 11:45 11/03/18 11:45 11/03/18 11:45 11/03/18 11:45 11/03/18 11:45 General appearance: disheveled, morbidly obese, no acute distress Exam: CONSTITUTIONAL: Minimally awakens with movement of the LLE and stimulation- no conversation at this time VASCULAR: +2 pitting edema to BLE, slightly worse dorsal aspect of left foot than right. Evidence of stasis dermatitis to ble from edema. No noted erythema or warmth to suggest cellulitis. Pulses faint but palpable DP/PT, cap refill <3 seconds MUSCULOSKELETAL.: left 5th digit appears in proper alignment- patient does grimace with palpation surrounding 5th met and phalynx of the left foot. no obvious trauma, ecchymosis, or ulceration. No obvious malalignment of foot SKIN: Stasis dermatitis noted bilaterally. Warm toes to tibia. No clinical signs of cellulitis, ulceration or trauma. Neurological: grimaces to pain however unable to properly assess as patient minimally awakens. Results - Labs Result Diagrams: 11/04/18 05:29 11/04/18 05:29 Labs: Abnormal lab results WBC 12.2 K/mcL (4.3-11.1) H 11/03/18 04:25 RBC 4.01 M/mcL (4.19-5.50) L 11/03/18 04:25 Hgb 11.9 g/dL (12.9-16.9) L 11/03/18 04:25 Hct 35.2 % (37.5-50.1) L 11/03/18 04:25 RDW 24.5 % (11.5-14.5) H 11/03/18 04:25 Monocytes # 1.7 K/mcL (0.0-1.3) H 11/03/18 04:25 Nucleated RBCs/100 WBC 0.2 /100 WBC (0) H 11/03/18 04:25 Platelet Estimate Slight Decrease (Normal) L 11/03/18 04:25 Anisocytosis 2+ (Not Present) A 11/02/18 17:18 Target Cells 2+ (Not Present) A 11/03/18 04:25 PT 13.5 Seconds (9.4-12.1) H 11/02/18 17:18 Sodium 130 mEq/L (136-145) L 11/03/18 04:25 Potassium 5.4 mEq/L (3.5-5.1) H 11/03/18 04:25 Chloride 95 mEq/L (98-107) L 11/03/18 04:25 BUN 55 mg/dL (8-23) H 11/03/18 04:25 Creatinine 1.49 mg/dL (0.70-1.30) H 11/03/18 04:25 Est GFR ( Amer) 57 (> 60) L 11/03/18 04:25 Est GFR (Non-Af Amer) 47 (> 60) L 11/03/18 04:25 BUN/Creatinine Ratio 37 (6-26) H 11/03/18 04:25 Glucose 124 mg/dL (70-105) H 11/03/18 04:25 POC Glucose 133 mg/dL (70-99) H 11/03/18 07:26 Lactic Acid 3.3 mmol/L (0.5-2.2) H 11/03/18 00:33 Calcium 11.5 mg/dL (8.6-10.3) H 11/03/18 04:25 Total Bilirubin 5.0 mg/dL (0.3-1.0) H 11/03/18 04:25 Direct Bilirubin 3.1 mg/dL (0.0-0.2) H 11/03/18 04:25 Indirect Bilirubin 1.9 mg/dL (0.0-1.2) H 11/03/18 04:25 AST 150 Units/L (13-39) H 11/03/18 04:25 ALT 58 Units/L (7-52) H 11/03/18 04:25 Alkaline Phosphatase 353 Units/L (34-104) H 11/03/18 04:25 Ammonia 69 mcmol/L (16-53) H 11/02/18 17:30 Serum Total Protein 6.2 g/dL (6.4-8.9) L 11/03/18 04:25 Albumin 2.9 g/dL (3.5-5.7) L 11/03/18 04:25 Albumin/Globulin Ratio 0.9 (1.1-2.2) L 11/03/18 04:25 H & H 11/02/18 11/03/18 Range/Units 17:18 04:25 Hgb 12.5 L 11.9 L (12.9-16.9) g/dL Hct 36.3 L 35.2 L (37.5-50.1) % All other labs normal. Consult Discharge Plan - Plan Referrals: Elizabeth Arcos MD [Primary Care Provider] -
--- NOTE | 2018-11-03 17:31 | Oncology Inp Consult Note ---
<Phyllis Ayers L - Last Filed: 11/04/18 13:19> Date of Encounter: 11/03/18 Time of Encounter: 15:00 Assessment and Plan (1) Cholangiocarcinoma Status: Acute Assessment and plan: Treatment summarized in HPI Most recently received pembrolizumab 10/04/2018 which he tolerated poorly He is not interested in pursuing further treatment and hospice philosophy was discussed at prior outpatient appointment He has been admitted with sequela of progressive disease including multiple electrolyte abnormalities, acute kidney injury, dehydration and weakness Nephrology is on board to assist with optimizing his renal function and electrolyte abnormalities (2) Goals of care, counseling/discussion Status: Acute Assessment and plan: The hospice philosophy was again discussed with patient, patients and patients sister at bedside today They have already been working closely with the palliative team and planning for family meeting tomorrow to determine and logistics of discharge home with hospice/choose hospice company From an oncology standpoint this is completely reasonable We appreciate the assistance of palliative care in this transition At this time, oncology will otherwise plan to sign off, please feel free to reach out if with any other questions or concerns - Data of Consult Patient: known to practice within the last 3 years Consult date: 11/03/18 Requesting Physician: Kirstie Sewell MD Primary Care Provider: Elizabeth Arcos - Consult Narrative Reason for consult: cholangiocarcinoma and HCC History of present illness: Patient is a 68-year-old male with oncology history significant for cholangiocarcinoma and hepatocellular carcinoma. He initially presented with 2 separate liver lesions and completed S/P RT to post lesions in January 2017 with progression. He had resection of 3 liver lesions, pathology revealed combination of cholangiocarcinoma and hepatocellular carcinomalesions. He completed adjuvant chemotherapy with cisplatin and Gemzar 3 cycles from 03/25/2018 to 05/06/2018. Following this he had further biochemical and radiographic progression of disease. Y 90 treatment was discussed however patient declined. He started palliative intent therapy with Pembrolizumab on 10/04/2018. He tolerated treatment very poorly and decision was made not to pursue any further treatment at that time. Also care were discussed and the hospice philosophy was introduced. [facility] and was planned to return to clinic in 2 weeks' time. Patient presented to ER on 11/02/2018 for bilateral lower extremity edema, oliguria, generalized weakness, confusion, nausea and vomiting. He is noted to have hyperkalemia and an SHRUTHI. Nephrology has been consulted. Past Med Surg Social Fam HX - Past Medical History Medical history: arthritis, cancer, COPD, diabetes, hyperlipidemia, hypertension, liver disease Additional medical history: PVD, DM, Hptn, Hyperlipidemia, peripheral neuropathy, gastric ulcer, cx back pain, arthritis, lichen simplex chronicus, lung nodules. LIVER MASS Psychiatric history: no psych history - Past Surgical History Surgical History: appendectomy, orthopedic, other Additional surgical history: 01/12 Had GB and part of liver removed. - Social History Smoking Status: Current every day smoker Smokeless Tobacco Status: No Alcohol use: none Drug use: none - Family History Maternal Grandfather Living Status: Hx Family Cancer: Yes (colon) Sister Living Status: Hx Family Cardiac Disorders: Yes (CHF) Medications and Allergies Aspirin 81 mg PO DAILY 08/14/16 [History] Liraglutide [Victoza 2-Justin] 1.8 mg SQ DAILY 09/20/16 [History] Lovastatin 40 mg PO DAILY 09/20/16 [History] Montelukast [Singulair] 10 mg PO DAILY 09/20/16 [History] [place]-3/Dha/Epa/Fish Oil [Fish Oil 1,000 mg Softgel] 1,000 mg PO DAILY 10/11/16 [History] Tiotropium [Spiriva] 1 puff IH DAILY 10/11/16 [History] Vitamin E 400 unit PO DAILY 10/11/16 [History] Albuterol Sulfate [Ventolin Hfa] 2 puff IH Q6H PRN 01/18/18 [History] Docusate Sodium [Dok] 100 mg PO BID 01/18/18 [History] Polyethylene Glycol 3350 [MiraLAX Powder Bulk 17.9 Oz] 17 g PO DAILY PRN 01/18/18 [History] Metoprolol [Lopressor] 25 mg PO BID #60 tablet 01/23/18 [Rx] Oxycodone HCl [Oxaydo] 10 mg PO Q6H PRN 03/16/18 [History] Lidocaine/Prilocaine [Emla] 1 appl TP AD #30 gm 04/15/18 [Rx] Cholecalciferol (Vitamin D3) [Vitamin D3] 5,000 unit PO DAILY 06/24/18 [History] Magnesium Oxide [Magnesium] 600 mg PO HS 09/23/18 [History] Furosemide [Lasix] 40 mg PO DAILY #30 tablet 10/27/18 [Rx] Spironolactone [Aldactone] 50 mg PO DAILY #30 tablet 10/27/18 [Rx] Gabapentin 600 mg PO TID 11/03/18 [History] Metformin HCl [Glucophage Xr] 1,000 mg PO BID 11/03/18 [History] hydroCHLOROthiazide [Hydrochlorothiazide] 25 mg PO DAILY 11/03/18 [History] Dapagliflozin Propanediol [Farxiga] 10 mg PO DAILY 11/04/18 [History] Sennosides [Senna] 8.6 mg PO BID 11/04/18 [History] Allergy/AdvReac Type Severity Reaction Status Date / Time adhesive tape Allergy Rash Verified 10/27/18 14:11 bacitracin Allergy Rash Verified 10/27/18 14:11 [From Neosporin ([id number]-itu-offei)] Neomycin Allergy Rash Verified 10/27/18 14:11 [From Neosporin ([id number]-[id number])] polymyxin B Allergy Rash Verified 10/27/18 14:11 [From Neosporin ([id number]-wlc-[id number])] Sulfa (Sulfonamide Allergy Rash Verified 10/27/18 14:11 Antibiotics) Constitutional: Present: anorexia, fatigue, weakness, weight loss. Absent: chills, fever(s), headache(s) Eyes: Absent: change in vision Nose, mouth and throat: Absent: dysphagia, odynophagia Cardiovascular: Absent: chest pain Respiratory: Present: dyspnea on exertion Gastrointestinal: Present: bloating, constipation, nausea, vomiting Genitourinary: Present: as per HPI, other. Absent: dysuria Additional comments: decrease in urinary output/oliguria, dark colored urine Integumentary: Absent: rash Neurological: Present: confusion. Absent: focal weakness, frequent falls Psychiatric: Present: as per HPI Hematologic/Lymphatic: Present: as per HPI Oncology - Exam - Constitutional General appearance: no acute distress, no febrile Exam: drowsy, will wake up momentarily to verbal stimuli but falls back to sleep, not able to participate in meaningful conversations - Head Head exam: Present: atraumatic - ENT ENT exam: Present: mucous membranes moist, normal oropharynx - Respiratory Respiratory exam: Present: decreased breath sounds, CTAB. Absent: respiratory distress - Cardiovascular Cardiovascular exam: Present: RRR, +S1, +S2 - GI/Abdominal GI/Abdominal exam: Present: distended, hypoactive bowel sounds, soft, tenderness - Extremities Exam Extremities exam: Present: pedal edema - Neurological Exam Neurological exam: Present: altered, oriented X3, no focal deficits, strengths equal and symetr throughout - Psychiatric Additional comments: unable to assess - Skin Skin exam: Present: dry, intact, pallor, warm Consult Discharge Plan - Plan Referrals: Elizabeth Arcos MD [Primary Care Provider] - Inpatient Charges Provider: Dr. Letty Navarro <RamonTammi S - Last Filed: 11/04/18 16:24> Date of Encounter: 11/03/18 - Data of Consult Patient: known to practice within the last 3 years Requesting Physician: Kirstie Sewell MD Primary Care Provider: Elizabeth Arcos Inpatient Charges Provider: Dr. Letty Navarro Consult - Inpatient: [id number] - Attending Attestation I examined this patient and my medical decision-making was reviewed with the Advanced Practice Nurse. I agree with the documented findings, disposition and treatment plan as described except to the extent set forth below. 1. 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 Patient not interested in active treatment including white 90 directed treatment to the liver or immunotherapy. He and family understands he has progressive disease and terminal. CT abdomen and pelvis on 11/03/2018 showed progressive cholangiocarcinoma with multifocal metastatic infiltration substantially worse since the 10/01/2018 exam. Small bilateral pleural effusions, new, with associated atelectasis in the lung bases He has elevated transaminases AST 150 ALT around 60 LDH 750. Bilirubin elevated to 5.1 with indirect 3.1. He also has acute kidney injury creatinine when up to 1.5 from 0.9. Potassium elevated at 5.3 in some of this could be secondary to Aldactone. Also mild hypercalcemia. He will be best served with hospice..
[2018-11-03] MEDS: Insulin LISPRO 300 UNITS/3 ML VIAL SQ SCH (18:12)
[2018-11-03] MEDS: Sennosides/Docusate Sodium TABLET PO SCH (20:55)
[2018-11-03] MEDS: Insulin DETEMIR 100 UNIT/ML X5UNITS SQ SCH (20:59)
[2018-11-04] MEDS: *HR* Heparin 5,000 UNIT/ML VIAL SQ SCH ×4 (00:55→23:40)
[2018-11-04 06:02] LABS: Basophils # 0.1 K/mcL (0.0-0.2); Basophils % 0.6 %; Eosinophils # 0.3 K/mcL (0.0-0.6); Eosinophils % 2.2 %; Hematocrit 31.7 % (37.5-50.1); Hemoglobin 10.9 g/dL (12.9-16.9); Immature Granulocytes % 0.6 % (0-4); Lymphocytes % 14.2 %; Mean Corpuscular HGB Conc 34.4 g/dL (31.6-35.5); Mean Corpuscular Hemoglobin 29.9 pg (28.0-33.3); Mean Corpuscular Volume 87.1 fL (83.0-100.0); Mean Platelet Volume 11.9 fL (9.4-12.4); Monocytes # 1.5 K/mcL (0.0-1.3); Monocytes % 12.6 %; Neutrophils # 8.1 K/mcL (1.6-8.9); Nucleated Red Blood Cells 0.3 /100 WBC (0); Platelet Count 180 K/mcL (140-400); Red Blood Count 3.64 M/mcL (4.19-5.50); Red Cell Distribution Width 25.5 % (11.5-14.5); Segmented Neutrophils % 69.8 %
[2018-11-04 06:04] LABS: Lymphocytes # 1.7 K/mcL (0.6-4.6)
[2018-11-04 06:22] LABS: Anisocytosis 2+ (Not Present); Target Cells 2+ (Not Present)
[2018-11-04 06:23] LABS: Platelet Estimate Normal (Normal); Polychromasia 1+ (Not Present)
[2018-11-04 06:25] LABS: Calcium 10.9 mg/dL (8.6-10.3); Phosphorous 3.3 mg/dL (2.7-4.5); Potassium 4.8 mEq/L (3.5-5.1)
[2018-11-04] MEDS: Insulin LISPRO 300 UNITS/3 ML VIAL SQ SCH ×3 (08:20→17:11)
[2018-11-04] MEDS: cefTRIAXone 1,000 MG in Water for inj. (sterile) 20 ML 10 ML IVP SCH (08:20)
[2018-11-04] MEDS: *HR* OxyCODONE Immed Rel 5 MG TABLET PO PRN ×2 (08:21→15:29)
[2018-11-04] MEDS: Sennosides/Docusate Sodium TABLET PO SCH ×2 (08:22→19:37)
[2018-11-04] MEDS: Aspirin 81 MG TAB.CHEW PO SCH (08:22)
[2018-11-04] MEDS: Gabapentin 300 MG CAPSULE PO SCH ×3 (08:22→19:36)
[2018-11-04] MEDS: (Omega-3/Dha/Epa/Fish Oil [Fish Oil 1,000 Mg Softgel] PO SCH ×2 (08:23→19:37)
[2018-11-04] MEDS: Lactulose Oral Soln 20 GM/30 ML UDC PO SCH ×3 (08:23→19:36)
--- NOTE | 2018-11-04 09:16 | Electrocardiograph Report ---
[address] [place], [place] [address] Test Date: 2018-11-02 Pat Name: Paul Verduzco Department: EXAMC3 Room: 2N02 Gender: M [employer]: : 1950 Requested By: Dar Boo Order Number: [id number] Reading MD: Sylvia Prince Measurements Intervals [place] Rate: 82 P: 45 DC: 175 QRS: 87 QRSD: 121 T: 0 QT: 403 QTc: 471 Interpretive Statements Sinus rhythm Nonspecific intraventricular conduction delay Abnormal inferior Q waves Borderline T abnormalities, anterior leads Electronically Signed On 11-04-2018 9:14:39 EST by Sylvia Prince
[2018-11-04] MEDS: Tiotropium 18 MCG inhalation IH SCH (09:42)
--- NOTE | 2018-11-04 13:04 | Podiatry Progress Note ---
Date of Encounter: 11/04/18 Time of Encounter: 12:00 - Assessment and Plan (1) Closed fracture of phalanx of left fifth toe Current Visit: Yes Status: Acute Xray imaging obtained and fracture of fifth proximal phalynx is noted and stable PLAN: Patient is terminal and prognosis is poor Family requesting no further treatment to foot related to patients condition Planned to place coban compression today- will defer at this time Will sign off- reconsult if needed Emotional care provided to patients at bedside Foot X-Ray 11/02/18 17:21 IMPRESSION: Unchanged alignment of the minimally displaced fracture of the proximal phalanx of the 5th digit. D/ / Selvin Soto MD / Selvin Soto MD Interpreting Provider: Selvin Soto MD Qualifiers: Encounter type: subsequent encounter Fracture healing: with routine healing Qualified Code(s): S92.502D - Displaced unspecified fracture of left lesser toe(s), subsequent encounter for fracture with routine healing Subjective Interval history: following patient in regards to a fracture of the left proximal 5th phalynx. Patient is again asleep on arrival with minimal arousal. at bedside. reports that oncology was by and they were told patient had two weeks or less left. States he is terminal and will be leaving on hospice. States they would like to further care to the foot at this time as patient will not be walking. Objective - Vital Signs Vital Signs: Vital Signs Temp Pulse Resp BP Pulse Ox 11/04/18 11:46 98.2 F 87 18 105/65 94 11/04/18 09:42 18 95 11/04/18 07:26 98.0 F 97 18 108/65 92 11/04/18 04:37 82 11/04/18 03:50 97.9 F 77 16 119/63 95 11/04/18 00:58 80 11/04/18 00:00 98.3 F 95 18 105/62 90 11/03/18 21:00 84 11/03/18 19:27 97.6 F 100 16 113/56 94 11/03/18 16:46 97.2 F L 88 18 108/62 96 Intake and Output 11/03/18 11/04/18 11/04/18 23:59 07:59 15:59 Intake Total 130 / 130 Balance 130 / 130 Intake: IV Fluids Rocephin 1,000 MG In Water for inj. (sterile) 10 ML @ 600 mls/ hr IVP DAILY [facility] Rx#:[id number] Oral 120 / 120 Other: Meal Breakfast Percent of Meal Consumed 50% Stool Size Moderate Stool Consistency soft Stool Color Brown # Voids 1 1 # Urine Diapers 1 1 # Bowel Movements 1 Blood Glucose* 201 181 154 - Exam Exam: Patient asleep No further assessment complete at request of family. - Lab Result Diagrams: 11/04/18 05:29 11/04/18 05:29 Labs: Abnormal lab results WBC 11.6 K/mcL (4.3-11.1) H 11/04/18 05:29 RBC 3.64 M/mcL (4.19-5.50) L 11/04/18 05:29 Hgb 10.9 g/dL (12.9-16.9) L 11/04/18 05:29 Hct 31.7 % (37.5-50.1) L 11/04/18 05:29 RDW 25.5 % (11.5-14.5) H 11/04/18 05:29 Monocytes # 1.5 K/mcL (0.0-1.3) H 11/04/18 05:29 Nucleated RBCs/100 WBC 0.3 /100 WBC (0) H 11/04/18 05:29 Polychromasia 1+ (Not Present) A 11/04/18 05:29 Anisocytosis 2+ (Not Present) A 11/04/18 05:29 Target Cells 2+ (Not Present) A 11/04/18 05:29 PT 13.5 Seconds (9.4-12.1) H 11/02/18 17:18 Sodium 135 mEq/L (136-145) L 11/04/18 05:29 BUN 62 mg/dL (8-23) H 11/04/18 05:29 Creatinine 1.44 mg/dL (0.70-1.30) H 11/04/18 05:29 Est GFR ( Amer) 59 (> 60) L 11/04/18 05:29 Est GFR (Non-Af Amer) 48 (> 60) L 11/04/18 05:29 BUN/Creatinine Ratio 43 (6-26) H 11/04/18 05:29 Glucose 186 mg/dL (70-105) H 11/04/18 05:29 POC Glucose 181 mg/dL (70-99) H 11/04/18 07:24 Calculated Osmolality 302 (280-300) H 11/04/18 05:29 Lactic Acid 2.6 mmol/L (0.5-2.2) H 11/04/18 08:04 Calcium 10.9 mg/dL (8.6-10.3) H 11/04/18 05:29 Total Bilirubin 5.0 mg/dL (0.3-1.0) H 11/03/18 04:25 Direct Bilirubin 3.1 mg/dL (0.0-0.2) H 11/03/18 04:25 Indirect Bilirubin 1.9 mg/dL (0.0-1.2) H 11/03/18 04:25 AST 150 Units/L (13-39) H 11/03/18 04:25 ALT 58 Units/L (7-52) H 11/03/18 04:25 Alkaline Phosphatase 353 Units/L (34-104) H 11/03/18 04:25 Ammonia 80 mcmol/L (16-53) H 11/04/18 08:04 Serum Total Protein 6.2 g/dL (6.4-8.9) L 11/03/18 04:25 Albumin 2.9 g/dL (3.5-5.7) L 11/03/18 04:25 Albumin/Globulin Ratio 0.9 (1.1-2.2) L 11/03/18 04:25 25-OH Vitamin D Total 18 ng/mL (30-80) L 11/03/18 16:20 PTH Intact 9.8 pg/ml (10.0-65.0) L 11/03/18 16:20 Consult Discharge Plan - Plan Referrals: Elizabeth Arcos MD [Primary Care Provider] -
--- NOTE | 2018-11-04 13:25 | Palliative Progress Note ---
Date of Encounter: 11/04/18 Time of Encounter: 13:00 - Assessment and plan (1) Goals of care, counseling/discussion Current Visit: Yes Status: Acute Assessment and plan: Met with Haleigh (patient's ) regarding goals of care. Explained patient is ready to be discharged and need to consider placement options. is adament against patient going to [facility]. Wanted patient to stay on Palliative care unit for 2 weeks, explained unable to justify this type of stay on Palliative care when no symptoms are being managed at this time; verbalized understanding, but expressed dislike. Inquired if could be admitted into [place] hosp[facility] inpatient. Offered to call and inquire for bed availability, but also shared the limited number of beds available with inpatient hospice; verbalized understanding and requested call to be made, then follow up with responsive. Explained would need to think about another placement option if inpatient hospice at [place] was not an option. Notified would return to give update once heard back from [place] [facility]. Called [facility] [place] hosp[facility] program. Left voicemail requesting return phone call to discuss patient. [id number]: Have not received phone call back form [facility] at this time. Received Vocera to return to patient's room to speak with . wanted update whether got patient into [place] hospice program. Interested in having patient placed in any [place] [facility] Program in the state, does not want him placed in [facility]. Notified Jassi BARRERA of situation. Palliative will continue to follow. Notified Dr. Milton of update that patient will not be discharging today, pending disposition. (2) Pain, cancer Current Visit: Yes Status: Acute Assessment and plan: Patient denies pain during this assessment. Patient is receiving scheduled Neurontin. Patient has received 1 dose Oxycodone PRN in the last 24 hours; continue PRN. (3) Edema extremities Current Visit: Yes Status: Acute (4) Cholangiocarcinoma Current Visit: Yes Status: Acute Assessment and plan: Oncology recommendations appreciated. Patient desires no further cancer t reatment. - Time Spent With Patient Total time spent is greater than 50% in coordination of care (as documented) at patient's floor/unit and/or counseling patient: Greater than 35 minutes - Subjective Interval history: Patient sitting up in bed upon arrival for assessment. Patient is alert and oriented with verbal stimulation. Patient denies pain, anxiety, dyspnea, nausea, and vomiting upon arrival. Patient reports, "I am just really tired." Chart review shows Oncology recommends hospice care for patient." No family present at bedside upon arrival, was supposed to be present at 1 pm. Called phone number left on patient's board for , patient's 's sister answered phone stating Patient's Haleigh is at hospital, instructed to be checking back. - Constitutional Vitals: Abnormal lab results WBC 11.6 K/mcL (4.3-11.1) H 11/04/18 05:29 RBC 3.64 M/mcL (4.19-5.50) L 11/04/18 05:29 Hgb 10.9 g/dL (12.9-16.9) L 11/04/18 05:29 Hct 31.7 % (37.5-50.1) L 11/04/18 05:29 RDW 25.5 % (11.5-14.5) H 11/04/18 05:29 Monocytes # 1.5 K/mcL (0.0-1.3) H 11/04/18 05:29 Nucleated RBCs/100 WBC 0.3 /100 WBC (0) H 11/04/18 05:29 Polychromasia 1+ (Not Present) A 11/04/18 05:29 Anisocytosis 2+ (Not Present) A 11/04/18 05:29 Target Cells 2+ (Not Present) A 11/04/18 05:29 PT 13.5 Seconds (9.4-12.1) H 11/02/18 17:18 Sodium 135 mEq/L (136-145) L 11/04/18 05:29 BUN 62 mg/dL (8-23) H 11/04/18 05:29 Creatinine 1.44 mg/dL (0.70-1.30) H 11/04/18 05:29 Est GFR ( Amer) 59 (> 60) L 11/04/18 05:29 Est GFR (Non-Af Amer) 48 (> 60) L 11/04/18 05:29 BUN/Creatinine Ratio 43 (6-26) H 11/04/18 05:29 Glucose 186 mg/dL (70-105) H 11/04/18 05:29 POC Glucose 181 mg/dL (70-99) H 11/04/18 07:24 Calculated Osmolality 302 (280-300) H 11/04/18 05:29 Lactic Acid 2.6 mmol/L (0.5-2.2) H 11/04/18 08:04 Calcium 10.9 mg/dL (8.6-10.3) H 11/04/18 05:29 Total Bilirubin 5.0 mg/dL (0.3-1.0) H 11/03/18 04:25 Direct Bilirubin 3.1 mg/dL (0.0-0.2) H 11/03/18 04:25 Indirect Bilirubin 1.9 mg/dL (0.0-1.2) H 11/03/18 04:25 AST 150 Units/L (13-39) H 11/03/18 04:25 ALT 58 Units/L (7-52) H 11/03/18 04:25 Alkaline Phosphatase 353 Units/L (34-104) H 11/03/18 04:25 Ammonia 80 mcmol/L (16-53) H 11/04/18 08:04 Serum Total Protein 6.2 g/dL (6.4-8.9) L 11/03/18 04:25 Albumin 2.9 g/dL (3.5-5.7) L 11/03/18 04:25 Albumin/Globulin Ratio 0.9 (1.1-2.2) L 11/03/18 04:25 25-OH Vitamin D Total 18 ng/mL (30-80) L 11/03/18 16:20 PTH Intact 9.8 pg/ml (10.0-65.0) L 11/03/18 16:20 General appearance: Present: cooperative, morbidly obese, no acute distress - Head Head exam: Present: atraumatic, normal inspection - Eye Eye exam: Present: PERRL, conjuntiva pink. Absent: periorbital swelling, periorbital tenderness Pupils: Present: normal accommodation, PERRL - ENT ENT exam: Present: mucous membranes dry, normal external ear exam - Neck Neck exam: Present: full ROM, normal inspection - Respiratory Respiratory exam: Present: accessory muscle use, rhonchi, wheezes. Absent: respiratory distress - Cardiovascular Cardiovascular exam: Present: +S1, +S2 - GI/Abdominal GI/Abdominal exam: Present: distended, firm, normal bowel sounds. Absent: tenderness - Rectal Rectal exam: Present: deferred - Extremities Exam Extremities exam: Present: pedal edema. Absent: calf tenderness, normal inspection, tenderness - Back Exam Back exam: Present: normal inspection - Neurological Exam Neurological exam: Present: alert, oriented X3, strengths equal and symetr throughout. Absent: altered - Psychiatric Psychiatric exam: Present: flat affect - Skin Skin exam: Present: dry, intact, warm. Absent: normal color Palliative Quality Palliative Quality: Screen for Code Status: Yes, Screen for Goals of Care: Yes, Screen for Pain: Yes, If Pain Regimen Started, Initiate Bowel Regimen: Yes, Screen for Nausea/Vomitting: Yes Code Status: 11/02/18 20:20 Resuscitation Status: Active [RES] Routine Comment: Resuscitation Status: Full Code 11/03/18 13:44 DNR [Resuscitation Status: Active] [RES] Routine Comment: State form completed. Resuscitation Status: [id number] - Labs CBC & Chem 7: 11/04/18 05:29 11/04/18 05:29 Labs: Laboratory Results - last 24 hr 11/03/18 11/03/18 11/03/18 16:20 16:20 16:20 WBC RBC Hgb Hct MCV MCH MCHC RDW Plt Count MPV Immature Gran % Seg Neutrophils % Lymphocytes % Monocytes % Eosinophils % Basophils % Neutrophils # Lymphocytes # Monocytes # Eosinophils # Basophils # Nucleated RBCs/100 WBC Platelet Estimate Polychromasia Anisocytosis Target Cells Sodium Potassium 5.2 H Chloride Carbon Dioxide BUN Creatinine Est GFR ( Amer) Est GFR (Non-Af Amer) BUN/Creatinine Ratio Glucose POC Glucose Calculated Osmolality Lactic Acid Calcium Phosphorus Magnesium Ammonia 25-OH Vitamin D Total 18 L PTH Intact 9.8 L Specimen Rejected 11/03/18 11/03/18 11/04/18 16:51 20:19 05:29 WBC 11.6 H RBC 3.64 L Hgb 10.9 L Hct 31.7 L MCV 87.1 MCH 29.9 MCHC 34.4 RDW 25.5 H Plt Count 180 MPV 11.9 Immature Gran % 0.6 Seg Neutrophils % 69.8 Lymphocytes % 14.2 Monocytes % 12.6 Eosinophils % 2.2 Basophils % 0.6 Neutrophils # 8.1 Lymphocytes # 1.7 Monocytes # 1.5 H Eosinophils # 0.3 Basophils # 0.1 Nucleated RBCs/100 WBC 0.3 H Platelet Estimate Normal Polychromasia 1+ A Anisocytosis 2+ A Target Cells 2+ A Sodium Potassium Chloride Carbon Dioxide BUN Creatinine Est GFR ( Amer) Est GFR (Non-Af Amer) BUN/Creatinine Ratio Glucose POC Glucose 178 H 201 H Calculated Osmolality Lactic Acid Calcium Phosphorus Magnesium Ammonia 25-OH Vitamin D Total PTH Intact Specimen Rejected 11/04/18 11/04/18 11/04/18 05:29 07:24 07:30 WBC RBC Hgb Hct MCV MCH MCHC RDW Plt Count MPV Immature Gran % Seg Neutrophils % Lymphocytes % Monocytes % Eosinophils % Basophils % Neutrophils # Lymphocytes # Monocytes # Eosinophils # Basophils # Nucleated RBCs/100 WBC Platelet Estimate Polychromasia Anisocytosis Target Cells Sodium 135 L Potassium 4.8 Chloride 98 Carbon Dioxide 29 BUN 62 H Creatinine 1.44 H Est GFR ( Amer) 59 L Est GFR (Non-Af Amer) 48 L BUN/Creatinine Ratio 43 H Glucose 186 H POC Glucose 181 H Calculated Osmolality 302 H Lactic Acid Calcium 10.9 H Phosphorus 3.3 Magnesium 2.0 Ammonia 25-OH Vitamin D Total PTH Intact Specimen Rejected Hemolyzed 11/04/18 11/04/18 08:04 08:04 WBC RBC Hgb Hct MCV MCH MCHC RDW Plt Count MPV Immature Gran % Seg Neutrophils % Lymphocytes % Monocytes % Eosinophils % Basophils % Neutrophils # Lymphocytes # Monocytes # Eosinophils # Basophils # Nucleated RBCs/100 WBC Platelet Estimate Polychromasia Anisocytosis Target Cells Sodium Potassium Chloride Carbon Dioxide BUN Creatinine Est GFR ( Amer) Est GFR (Non-Af Amer) BUN/Creatinine Ratio Glucose POC Glucose Calculated Osmolality Lactic Acid 2.6 H Calcium Phosphorus Magnesium Ammonia 80 H 25-OH Vitamin D Total PTH Intact Specimen Rejected - Impressions Impressions Abdomen/Pelvis CT 11/03/18 14:03 IMPRESSION: 1. Progressive cholangiocarcinoma with multifocal metastatic infiltration noted throughout the liver, substantially worse since the 10/01/2018 exam. 2. Small bilateral pleural effusions, new, with associated atelectasis in the lung bases. 3. Mild ascites. 4. Bilateral inguinal hernias containing fat. D/ / 11/03/2018 15:39:15 Fernando Suárez MD / [facility] Interpreting Provider: Fernando Suárez MD - ABG Interpretation ABG results: PT/INR, D-dimer PT 13.5 Seconds (9.4-12.1) H 11/02/18 17:18 Palliative Scale - Palliative Performance Scale How ambulatory is this patient?: Mainly sit / lie What is patient's level of activity and evidence of disease?: Unable hobby/housework, Significant disease How much self-care assistance does patient require?: Considerable assistance required How much oral intake does the patient have?: Normal or reduced What is this patient's level of consciousness?: Full or drowsy with or without confusion Palliative Performance Score: 60 % Consult Discharge Plan - Plan Referrals: Elizabeth Arcos MD [Primary Care Provider] -
--- NOTE | 2018-11-04 13:48 | Nephrology Progress Note ---
Date of Encounter: 11/04/18 Time of Encounter: 11:50 - Assessment and Plan (1) SHRUTHI (acute kidney injury) Current Visit: Yes Status: Acute Baseline GFR appears to be greater than 60. GFR today is 43. Multifactorial related to dehydration, chemo/radiation. Avoid nephrotoxins and renal dose. Strict I/O Renal diet (low potassium). Per palliative note, ANDRES Dhillon is to speak with patient and this afternoon. Nephrology will sign off, please reconsult if needed. (2) Hyperkalemia Current Visit: Yes Status: Acute Potassium was 6.6, improved at 4.8. Renal diet advised. (3) Cholangiocarcinoma Current Visit: Yes Status: Acute Per oncology/primary. (4) Edema extremities Current Visit: Yes Status: Acute Strict I/O. (5) Oliguria Current Visit: Yes Status: Acute 300 Uop recorded. Subjective Principal diagnosis: low urine output Interval history: Pt seen and examined, is assisting with lunch at bedside. Pt denies any needs at this time. Denies chest pain or shortness of breath. Objective - Vital Signs Vital signs: Vital Signs Temp Pulse Resp BP Pulse Ox 11/04/18 11:46 98.2 F 87 18 105/65 94 11/04/18 09:42 18 95 11/04/18 07:26 98.0 F 97 18 108/65 92 11/04/18 04:37 82 11/04/18 03:50 97.9 F 77 16 119/63 95 11/04/18 00:58 80 11/04/18 00:00 98.3 F 95 18 105/62 90 11/03/18 21:00 84 11/03/18 19:27 97.6 F 100 16 113/56 94 11/03/18 16:46 97.2 F L 88 18 108/62 96 Intake and Output 11/03/18 11/04/18 11/04/18 23:59 07:59 15:59 Intake Total 250 / 250 Balance 250 / 250 Intake: IV Fluids Rocephin 1,000 MG In Water for inj. (sterile) 10 ML @ 600 mls/ hr IVP DAILY TEDDY Rx#:[id number] Oral 240 / 240 Other: Meal Lunch Percent of Meal Consumed 25% Stool Size Moderate Stool Consistency soft Stool Color Brown # Voids 1 1 # Urine Diapers 1 1 # Bowel Movements 1 Blood Glucose* 201 181 154 - General Appearance General appearance: Present: chronically ill, frail EENT: Present: ATNC, hearing intact, vision intact, scleral icterus Respiratory: Present: clear Cardiology: Present: edema (+1 pitting edema noted to bilat lower extremities. ), normal S1, normal S2 Gastrointestinal: Present: normoactive bowel sounds, no tenderness, no guarding Integumentary: Present: no rash, warm and dry Neurologic: Present: alert and oriented x3 Musculoskeletal: Present: no deformities, no erythema Psychiatric: Present: mood/affect appropriate, cooperative - Lab 11/04/18 05:29 11/04/18 05:29 Most recent lab results Calcium 10.9 mg/dL (8.6-10.3) H 11/04/18 05:29 Phosphorus 3.3 mg/dL (2.7-4.5) 11/04/18 05:29 Magnesium 2.0 mg/dL (1.6-2.6) 11/04/18 05:29 Consult Discharge Plan - Plan Referrals: Elizabeth Arcos MD [Primary Care Provider] -
--- NOTE | 2018-11-04 14:55 | Internal Med Progress Note ---
Hospitalist Progress Note - Encounter Date of Encounter: 11/04/18 Time of Encounter: 15:41 - Subjective Interval History: Patient seen and examined this morning. No acute overnight events. Patient drowsy and feeling very weak. Denies shortness of breath. - Exam Vitals: Temp Pulse Resp BP Pulse Ox 98.2 F 87 18 105/65 94 11/04/18 11:46 11/04/18 11:46 11/04/18 11:46 11/04/18 11:46 11/04/18 11:46 Exam: General: In no acute distress. drowsy and sleepy. Respiratory exam: CTAB. no accessory muscle use, rales, rhonchi, wheezes Cardiovascular exam: RRR, +S1, +S2. no murmur, gallop, rubs. GI/Abdominal exam: distended abdomen, no peritoneal signs. Extremities exam: no pedal edema, no calf tenderness Neurological exam: CN II-XII intact, AO X3, no focal deficits. no pronater drift, facial droop, speech deficit Skin exam: icteric skin - Assessment and Plan (1) Type 2 diabetes mellitus Current Visit: Yes Status: Chronic (2) Cholangiocarcinoma Current Visit: Yes Status: Acute (3) DVT prophylaxis Current Visit: Yes Status: Acute (4) SHRUTHI (acute kidney injury) Current Visit: Yes Status: Acute (5) Fracture of toe of left foot Current Visit: Yes Status: Acute (6) Oliguria Current Visit: Yes Status: Acute (7) Hyperkalemia Current Visit: Yes Status: Acute (8) Abdominal distention Current Visit: Yes Status: Acute - Summary of Assessment and Plan Summary of Assessment and Plan: SHRUTHI - likely related to dehydration and being on chemo - CT with mild ascitis and progressive cholangiocarcinoma. - Hold lasix and spironolactone Leukocytosis - Patient with mild leukocytosis - Unclear why patient on ceftriaxone. UA and CXR unremarkable - Will DC ceftriaxone and monitor. Hyperkalemia - resolved after kayexalate Cholangiocarcinoma - Oncology recommended hospice. Patient not interested in active treatment - Palliative care following - Hospice being arranged at [place]. Closed Fracture left 5th toe - Podiatry consulted and appreciate recs - Likely will manage conservatively. Type 2 diabetes mellitus - c/w Sliding scale insulin and accuchecks DVT prophylaxis - c/w Heparin sc - Time Spent with Patient Total time spent is greater than 50% in coordination of care (as documented) at patient's floor/unit and/or counseling patient: Internal Medicine: Result - Labs CBC & Chem 7: 11/04/18 05:29 11/04/18 05:29 Labs: Short CBC 11/04/18 Range/Units 05:29 WBC 11.6 H (4.3-11.1) K/mcL Hgb 10.9 L (12.9-16.9) g/dL Hct 31.7 L (37.5-50.1) % Plt Count 180 (140-400) K/mcL Neutrophils # 8.1 (1.6-8.9) K/mcL BMP 11/03/18 11/04/18 16:20 05:29 Sodium 135 L Potassium 5.2 H 4.8 Chloride 98 Carbon Dioxide 29 BUN 62 H Creatinine 1.44 H Glucose 186 H Calcium 10.9 H - ABG Interpretation ABG results: PT/INR, D-dimer PT 13.5 Seconds (9.4-12.1) H 11/02/18 17:18 - Impressions Impressions Abdomen/Pelvis CT 11/03/18 14:03 IMPRESSION: 1. Progressive cholangiocarcinoma with multifocal metastatic infiltration noted throughout the liver, substantially worse since the 10/01/2018 exam. 2. Small bilateral pleural effusions, new, with associated atelectasis in the lung bases. 3. Mild ascites. 4. Bilateral inguinal hernias containing fat. 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
[2018-11-04] MEDS: Insulin DETEMIR 100 UNIT/ML X5UNITS SQ SCH (19:44)
[2018-11-05 05:02] LABS: Basophils # 0.1 K/mcL (0.0-0.2); Basophils % 0.8 %; Eosinophils # 0.2 K/mcL (0.0-0.6); Eosinophils % 1.8 %; Hematocrit 30.5 % (37.5-50.1); Hemoglobin 10.1 g/dL (12.9-16.9); Immature Granulocytes % 0.6 % (0-4); Lymphocytes # 1.8 K/mcL (0.6-4.6); Lymphocytes % 16.2 %; Mean Corpuscular HGB Conc 33.1 g/dL (31.6-35.5); Mean Corpuscular Hemoglobin 29.5 pg (28.0-33.3); Mean Corpuscular Volume 89.2 fL (83.0-100.0); Mean Platelet Volume 11.9 fL (9.4-12.4); Monocytes # 1.6 K/mcL (0.0-1.3); Neutrophils # 7.4 K/mcL (1.6-8.9); Nucleated Red Blood Cells 0.6 /100 WBC (0); Platelet Count 181 K/mcL (140-400); Red Blood Count 3.42 M/mcL (4.19-5.50); Red Cell Distribution Width 26.3 % (11.5-14.5); Segmented Neutrophils % 66.6 %
[2018-11-05 05:21] LABS: Calcium 10.9 mg/dL (8.6-10.3); Magnesium 2.1 mg/dL (1.6-2.6); Phosphorous 3.1 mg/dL (2.7-4.5); Potassium 4.7 mEq/L (3.5-5.1)
[2018-11-05 05:55] LABS: Anisocytosis 2+ (Not Present); Platelet Estimate Normal (Normal); Polychromasia 1+ (Not Present); Target Cells 2+ (Not Present)
[2018-11-05] MEDS: Tiotropium 18 MCG inhalation IH SCH (07:43)
[2018-11-05] MEDS: Sennosides/Docusate Sodium TABLET PO SCH ×2 (07:56→20:07)
[2018-11-05] MEDS: Gabapentin 300 MG CAPSULE PO SCH ×3 (07:56→20:07)
[2018-11-05] MEDS: *HR* Heparin 5,000 UNIT/ML VIAL SQ SCH ×2 (07:57→17:21)
[2018-11-05] MEDS: Insulin LISPRO 300 UNITS/3 ML VIAL SQ SCH ×3 (07:57→17:20)
[2018-11-05] MEDS: Lactulose Oral Soln 20 GM/30 ML UDC PO SCH ×3 (07:57→20:10)
[2018-11-05] MEDS: (Omega-3/Dha/Epa/Fish Oil [Fish Oil 1,000 Mg Softgel] PO SCH ×2 (07:57→20:12)
[2018-11-05] MEDS: *HR* OxyCODONE Immed Rel 5 MG TABLET PO PRN ×3 (07:57→20:05)
--- NOTE | 2018-11-05 11:09 | Event Note ---
Date of Encounter: 11/05/18 Time of Encounter: 10:30 Conducted bedside meeting with patient and Cielo. Patient and family desire Hospice care and would like to transition to [facility]. Called Yeni Young # [phone] Ext. [phone] at [facility]. Yeni is SCHOOL AGE PROGRAM TEACHER at OR and desires patient clinical data to be faxed at [phone]. Discussed with Edelmira SERRA on 2N and she will fax required data to OR. PC team at the OR will review clinical data. Patient has been tentatively accepted pending approval. Updated and patient and we will await final acceptance of transfer. Patient sleepy but opens eyes and attempts to participate in discussions. C/O abdominal pain, 3/10 scale and tenderness to palpation. Patient with ascites from cancer diagnosis of Cholangiocarcinoma. Patient is terminal and accepting of Hospice.
--- NOTE | 2018-11-05 14:07 | Internal Med Progress Note ---
Hospitalist Progress Note - Encounter Date of Encounter: 11/05/18 Time of Encounter: 11:23 - Subjective Interval History: Patient seen and examined this morning. No acute overnight events. Patient still feeling weak. Denies any pain. Drowsy. - Exam Vitals: Temp Pulse Resp BP Pulse Ox 98.1 F 87 18 106/54 92 11/05/18 11:22 11/05/18 11:22 11/05/18 11:22 11/05/18 11:22 11/05/18 11:22 Exam: General: In no acute distress. drowsy and sleepy. Respiratory exam: CTAB. no accessory muscle use, rales, rhonchi, wheezes Cardiovascular exam: RRR, +S1, +S2. no murmur, gallop, rubs. GI/Abdominal exam: distended abdomen, Mild tenderness. no peritoneal signs. Extremities exam: no pedal edema, no calf tenderness Neurological exam: drowsy, limited exam. Moving all extremities. Following co mmands and answer appropriately occasionally. Skin exam: icteric skin - Assessment and Plan (1) Type 2 diabetes mellitus Current Visit: Yes Status: Chronic (2) Cholangiocarcinoma Current Visit: Yes Status: Acute (3) DVT prophylaxis Current Visit: Yes Status: Acute (4) SHRUTHI (acute kidney injury) Current Visit: Yes Status: Acute (5) Fracture of toe of left foot Current Visit: Yes Status: Acute (6) Oliguria Current Visit: Yes Status: Acute (7) Hyperkalemia Current Visit: Yes Status: Acute (8) Abdominal distention Current Visit: Yes Status: Acute - Summary of Assessment and Plan Summary of Assessment and Plan: Cholangiocarcinoma - Oncology recommended hospice. Patient not interested in active treatment - Palliative care following - Hospice being arranged at [place]. Closed Fracture left 5th toe - Podiatry consulted and appreciate recs - managed conservatively. Type 2 diabetes mellitus - c/w Sliding scale insulin and accuchecks - Time Spent with Patient Total time spent is greater than 50% in coordination of care (as documented) at patient's floor/unit and/or counseling patient: Internal Medicine: Result - Labs CBC & Chem 7: 11/05/18 04:35 11/05/18 04:35 Labs: Short CBC 11/05/18 Range/Units 04:35 WBC 11.1 (4.3-11.1) K/mcL Hgb 10.1 L (12.9-16.9) g/dL Hct 30.5 L (37.5-50.1) % Plt Count 181 (140-400) K/mcL Neutrophils # 7.4 (1.6-8.9) K/mcL BMP 11/05/18 04:35 Sodium 137 Potassium 4.7 Chloride 98 Carbon Dioxide 27 BUN 69 H Creatinine 1.45 H Glucose 135 H Calcium 10.9 H - ABG Interpretation ABG results: PT/INR, D-dimer PT 13.5 Seconds (9.4-12.1) H 11/02/18 17:18 Consult Discharge Plan - Plan Referrals: Elizabeth Arcos MD [Primary Care Provider] - (1) Type 2 diabetes mellitus Qualifiers: Diabetes mellitus correction insulin use: with correction use Diabetes mellitus complication status: without complication Qualified Code(s): E11.9 - Type 2 diabetes mellitus without complications; 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
--- NOTE | 2018-11-05 15:35 | Palliative Progress Note ---
Date of Encounter: 11/05/18 Time of Encounter: 11:00 - Assessment and plan (1) Generalized weakness Current Visit: Yes Status: Resolved Assessment and plan: Patient overall general weakness. Patient with terminal Cholangiocarcinoma and will transition hospice care for comfort. (2) Goals of care, counseling/discussion Current Visit: Yes Status: Acute Assessment and plan: Awaiting confirmation at local [facility] for patient transition to there inpatient hospice unit. Patient Cielo informed. (3) Pain, cancer Current Visit: Yes Status: Acute Assessment and plan: Patient with varying abdominal pressure and tenderness. States that Oxycodone is effective when requested. Educated on need to request at onset of pain. (4) Abdominal distention Current Visit: Yes Status: Acute (5) Cholangiocarcinoma Current Visit: Yes Status: Acute Assessment and plan: Terminal diagnosis and patient to transition to hospice - Time Spent With Patient Total time spent is greater than 50% in coordination of care (as documented) at patient's floor/unit and/or counseling patient: 25 - 35 minutes - Subjective Interval history: Patient in bed. Alert to conversation. at bedside. Goal is for patient to DC to hospice care. - Constitutional Vitals: Abnormal lab results RBC 3.42 M/mcL (4.19-5.50) L 11/05/18 04:35 Hgb 10.1 g/dL (12.9-16.9) L 11/05/18 04:35 Hct 30.5 % (37.5-50.1) L 11/05/18 04:35 RDW 26.3 % (11.5-14.5) H 11/05/18 04:35 Monocytes # 1.6 K/mcL (0.0-1.3) H 11/05/18 04:35 Nucleated RBCs/100 WBC 0.6 /100 WBC (0) H 11/05/18 04:35 Polychromasia 1+ (Not Present) A 11/05/18 04:35 Anisocytosis 2+ (Not Present) A 11/05/18 04:35 Target Cells 2+ (Not Present) A 11/05/18 04:35 PT 13.5 Seconds (9.4-12.1) H 11/02/18 17:18 BUN 69 mg/dL (8-23) H 11/05/18 04:35 Creatinine 1.45 mg/dL (0.70-1.30) H 11/05/18 04:35 Est GFR ( Amer) 58 (> 60) L 11/05/18 04:35 Est GFR (Non-Af Amer) 48 (> 60) L 11/05/18 04:35 BUN/Creatinine Ratio 48 (6-26) H 11/05/18 04:35 Glucose 135 mg/dL (70-105) H 11/05/18 04:35 POC Glucose 124 mg/dL (70-99) H 11/05/18 07:13 Calculated Osmolality 306 (280-300) H 11/05/18 04:35 Lactic Acid 2.6 mmol/L (0.5-2.2) H 11/04/18 08:04 Calcium 10.9 mg/dL (8.6-10.3) H 11/05/18 04:35 Total Bilirubin 5.0 mg/dL (0.3-1.0) H 11/03/18 04:25 Direct Bilirubin 3.1 mg/dL (0.0-0.2) H 11/03/18 04:25 Indirect Bilirubin 1.9 mg/dL (0.0-1.2) H 11/03/18 04:25 AST 150 Units/L (13-39) H 11/03/18 04:25 ALT 58 Units/L (7-52) H 11/03/18 04:25 Alkaline Phosphatase 353 Units/L (34-104) H 11/03/18 04:25 Ammonia 80 mcmol/L (16-53) H 11/04/18 08:04 Serum Total Protein 6.2 g/dL (6.4-8.9) L 11/03/18 04:25 Albumin 2.9 g/dL (3.5-5.7) L 11/03/18 04:25 Albumin/Globulin Ratio 0.9 (1.1-2.2) L 11/03/18 04:25 25-OH Vitamin D Total 18 ng/mL (30-80) L 11/03/18 16:20 PTH Intact 9.8 pg/ml (10.0-65.0) L 11/03/18 16:20 - Head Head exam: Present: atraumatic, normal inspection, normocephalic - Eye Eye exam: Present: scleral icterus - ENT ENT exam: Present: mucous membranes moist - Neck Neck exam: Present: full ROM - Respiratory Respiratory exam: Present: decreased breath sounds - Expanded Respiratory Exam Location: decreased breath sounds: Left, Right, Lower - Cardiovascular Cardiovascular exam: Present: RRR, +S1, +S2 - GI/Abdominal GI/Abdominal exam: Present: diminished bowel sounds, distended, soft, tenderness - Extremities Exam Extremities exam: Present: pedal edema (trace) - Neurological Exam Neurological exam: Present: alert, oriented X3 - Psychiatric Psychiatric exam: Present: normal affect - Skin Skin exam: Present: pallor, warm Palliative Quality Palliative Quality: Screen for Code Status: Yes, Screen for Goals of Care: Yes, Screen for Pain: Yes, If Pain Regimen Started, Initiate Bowel Regimen: Yes, Screen for Nausea/Vomitting: Yes Code Status: 11/02/18 20:20 Resuscitation Status: Active [RES] Routine Comment: Resuscitation Status: Full Code 11/03/18 13:44 DNR [Resuscitation Status: Active] [RES] Routine Comment: State form completed. Resuscitation Status: [id number] - Labs CBC & Chem 7: 11/05/18 04:35 11/05/18 04:35 Labs: Laboratory Results - last 24 hr 11/03/18 11/04/18 11/04/18 11:49 11:47 16:10 WBC RBC Hgb Hct MCV MCH MCHC RDW Plt Count MPV Immature Gran % Seg Neutrophils % Lymphocytes % Monocytes % Eosinophils % Basophils % Neutrophils # Lymphocytes # Monocytes # Eosinophils # Basophils # Nucleated RBCs/100 WBC Platelet Estimate Polychromasia Anisocytosis Target Cells Sodium Potassium Chloride Carbon Dioxide BUN Creatinine Est GFR ( Amer) Est GFR (Non-Af Amer) BUN/Creatinine Ratio Glucose POC Glucose 153 H 154 H 160 H Calculated Osmolality Calcium Phosphorus Magnesium 11/04/18 11/05/18 11/05/18 20:40 04:35 04:35 WBC 11.1 RBC 3.42 L Hgb 10.1 L Hct 30.5 L MCV 89.2 MCH 29.5 MCHC 33.1 RDW 26.3 H Plt Count 181 MPV 11.9 Immature Gran % 0.6 Seg Neutrophils % 66.6 Lymphocytes % 16.2 Monocytes % 14.0 Eosinophils % 1.8 Basophils % 0.8 Neutrophils # 7.4 Lymphocytes # 1.8 Monocytes # 1.6 H Eosinophils # 0.2 Basophils # 0.1 Nucleated RBCs/100 WBC 0.6 H Platelet Estimate Normal Polychromasia 1+ A Anisocytosis 2+ A Target Cells 2+ A Sodium 137 Potassium 4.7 Chloride 98 Carbon Dioxide 27 BUN 69 H Creatinine 1.45 H Est GFR ( Amer) 58 L Est GFR (Non-Af Amer) 48 L BUN/Creatinine Ratio 48 H Glucose 135 H POC Glucose 196 H Calculated Osmolality 306 H Calcium 10.9 H Phosphorus 3.1 Magnesium 2.1 11/05/18 07:13 WBC RBC Hgb Hct MCV MCH MCHC RDW Plt Count MPV Immature Gran % Seg Neutrophils % Lymphocytes % Monocytes % Eosinophils % Basophils % Neutrophils # Lymphocytes # Monocytes # Eosinophils # Basophils # Nucleated RBCs/100 WBC Platelet Estimate Polychromasia Anisocytosis Target Cells Sodium Potassium Chloride Carbon Dioxide BUN Creatinine Est GFR ( Amer) Est GFR (Non-Af Amer) BUN/Creatinine Ratio Glucose POC Glucose 124 H Calculated Osmolality Calcium Phosphorus Magnesium - ABG Interpretation ABG results: PT/INR, D-dimer PT 13.5 Seconds (9.4-12.1) H 11/02/18 17:18 Palliative Scale - Palliative Performance Scale How ambulatory is this patient?: Mainly sit / lie What is patient's level of activity and evidence of disease?: Unable hobby/housework, Significant disease How much self-care assistance does patient require?: Considerable assistance required How much oral intake does the patient have?: Normal or reduced What is this patient's level of consciousness?: Full or drowsy with or without confusion Palliative Performance Score: 60 % Consult Discharge Plan - Plan Referrals: Elizabeth Arcos MD [Primary Care Provider] -
[2018-11-05] MEDS: Insulin DETEMIR 100 UNIT/ML X5UNITS SQ SCH (20:12)
[2018-11-06] MEDS: *HR* Heparin 5,000 UNIT/ML VIAL SQ SCH ×2 (00:54→08:58)
[2018-11-06 07:21] VITALS: BP 104/64
[2018-11-06 07:21] LABS: Basophils # 0.1 K/mcL (0.0-0.2); Basophils % 0.7 %; Eosinophils # 0.2 K/mcL (0.0-0.6); Eosinophils % 1.9 %; Hematocrit 31.5 % (37.5-50.1); Hemoglobin 10.7 g/dL (12.9-16.9); Immature Granulocytes % 0.8 % (0-4); Lymphocytes # 1.9 K/mcL (0.6-4.6); Lymphocytes % 17.3 %; Mean Corpuscular Hemoglobin 29.7 pg (28.0-33.3); Mean Corpuscular Volume 87.5 fL (83.0-100.0); Mean Platelet Volume 11.7 fL (9.4-12.4); Monocytes % 13.5 %; Nucleated Red Blood Cells 0.8 /100 WBC (0); Platelet Count 159 K/mcL (140-400); Red Cell Distribution Width 26.6 % (11.5-14.5); Segmented Neutrophils % 65.8 %
[2018-11-06 07:42] LABS: Monocytes # 1.4 K/mcL (0.0-1.3)
[2018-11-06] MEDS: Tiotropium 18 MCG inhalation IH SCH (07:47)
[2018-11-06 08:32] LABS: Calcium 11.4 mg/dL (8.6-10.3); Magnesium 2.2 mg/dL (1.6-2.6); Phosphorous 3.9 mg/dL (2.7-4.5); Potassium 5.2 mEq/L (3.5-5.1)
[2018-11-06 08:41] LABS: Anisocytosis 2+ (Not Present); Hypochromasia Present (Not Present); Platelet Estimate Normal (Normal); Polychromasia 1+ (Not Present); Target Cells 2+ (Not Present)
[2018-11-06] MEDS: Insulin LISPRO 300 UNITS/3 ML VIAL SQ SCH (08:57)
--- NOTE | 2018-11-06 08:57 | Discharge Summary ---
- NOTES TO OUTPATIENT PROVIDER Notes to Outpatient Provider: Patient transition to hospice with comfort care from terminal cholangiocarcinoma. Transferred to local [facility] for inpatient hospice Orders not resulted at time of discharge: Pending orders 11/03/18 13:34 Chloride,Urine [UCHEM] Routine Creatinine,Urine [UCHEM] Routine Potassium,Urine [UCHEM] Routine Sodium, Urine [UCHEM] Routine 11/03/18 16:20 Parathormone Related Peptide Routine 11/07/18 04:00 Basic Metabolic Panel AM 0400 CBC [Complete Blood Count] [HEME] AM 0400 Magnesium AM 0400 Phosphorous AM 0400 11/08/18 04:00 Basic Metabolic Panel AM 0400 CBC [Complete Blood Count] [HEME] AM 0400 Magnesium AM 0400 Phosphorous AM 0400 11/09/18 04:00 Basic Metabolic Panel AM 0400 CBC [Complete Blood Count] [HEME] AM 0400 Magnesium AM 0400 Phosphorous AM 0400 Date of Encounter: 11/06/18 Time of Encounter: 08:49 - Discharge Diagnosis (1) Type 2 diabetes mellitus Priority: Secondary Status: Chronic Qualifiers: Diabetes mellitus wares sorter insulin use: with residential use Diabetes mellitus complication status: without complication Qualified Code(s): E11.9 - Type 2 diabetes mellitus without complications; 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 (2) Cholangiocarcinoma Priority: Primary Status: Acute (3) DVT prophylaxis Priority: Secondary Status: Acute (4) SHRUTHI (acute kidney injury) Priority: Primary Status: Acute (5) Fracture of toe of left foot Priority: Secondary Status: Acute Qualifiers: Encounter type: subsequent encounter Toe: lesser toe Fracture type: closed Phalanx: proximal Fracture alignment: nondisplaced Fracture healing: with routine healing Qualified Code(s): S92.515D - Nondisplaced fracture of proximal phalanx of left lesser toe(s), subsequent encounter for fracture with routine healing (6) Oliguria Priority: Primary Status: Acute (7) Hyperkalemia Priority: Secondary Status: Acute (8) Abdominal distention Priority: Secondary Status: Acute Hospital course: Mr. Verduzco is a 68 year old male with past medical history of cholangiocarcinoma, COPD, diabetes, hypertension came with a decreased urine output and of fall leading to fracture of left foot fifth digit. Patient was found to have SHRUTHI. Oncology and palliative care consult was obtained. Patient tolerated recent the immunotherapy poorly. Hospice care was discussed with patient per oncology. Patient was arranged to have inpatient hospice at [facility] arrangements were made for by palliative care. Most medications were stopped except for medications for comfort. Discussed with family who not completely prepared for it but understands his health condition and hospice treatment. Patient would be discharged to hospice today. Discharge discussed with: patient, family, nurse, educational consultant - Time Spent with Patient Total time spent providing and/or coordinating discharge services: Greater than 30 minutes (35) - Discharge Medications Prescriptions: Continue Albuterol Sulfate [Ventolin Hfa] 2 puff IH Q6H PRN PRN Reason: Dyspnea Sennosides [Senna] 8.6 mg PO BID Oxycodone HCl [Oxaydo] 10 mg PO Q6H PRN 4 Days #16 tablet.orl PRN Reason: Severe Pain Discontinued Aspirin 81 mg PO DAILY Montelukast [Singulair] 10 mg PO DAILY Lovastatin 40 mg PO DAILY Liraglutide [Victoza 2-Justin] 1.8 mg SQ DAILY Tiotropium [Spiriva] 1 puff IH DAILY Vitamin E 400 unit PO DAILY [place]ham-3/Dha/Epa/Fish Oil [Fish Oil 1,000 mg Softgel] 1,000 mg PO DAILY Docusate Sodium [Dok] 100 mg PO BID Polyethylene Glycol 3350 [MiraLAX Powder Bulk 17.9 Oz] 17 g PO DAILY PRN PRN Reason: Constipation Metoprolol [Lopressor] 25 mg PO BID #60 tablet Lidocaine/Prilocaine [Emla] 1 appl TP AD #30 gm Cholecalciferol (Vitamin D3) [Vitamin D3] 5,000 unit PO DAILY Magnesium Oxide [Magnesium] 600 mg PO HS Furosemide [Lasix] 40 mg PO DAILY #30 tablet Spironolactone [Aldactone] 50 mg PO DAILY #30 tablet Gabapentin 600 mg PO TID hydroCHLOROthiazide [Hydrochlorothiazide] 25 mg PO DAILY Metformin HCl [Glucophage Xr] 1,000 mg PO BID Dapagliflozin Propanediol [Farxiga] 10 mg PO DAILY Home Medications: Albuterol Sulfate [Ventolin Hfa] 2 puff IH Q6H PRN 01/18/18 [History] Sennosides [Senna] 8.6 mg PO BID 11/04/18 [History] Oxycodone HCl [Oxaydo] 10 mg PO Q6H PRN 4 Days #16 tablet.orl 11/06/18 [Rx] Allergies/Adverse Reactions: Allergy/AdvReac Type Severity Reaction Status Date / Time adhesive tape Allergy Rash Verified 10/27/18 14:11 bacitracin Allergy Rash Verified 10/27/18 14:11 [From Neosporin ([id number])] Neomycin Allergy Rash Verified 10/27/18 14:11 [From Neosporin ([id number])] polymyxin B Allergy Rash Verified 10/27/18 14:11 [From Neosporin ([id number])] Sulfa (Sulfonamide Allergy Rash Verified 10/27/18 14:11 Antibiotics) Date of admission: 11/02/18 22:08 Primary care physician: Elizabeth Arcos Consults: 11/02/18 20:51 Consult to Palliative Care [CONS] Routine Comment: Consulting Provider: [facility] Reason for Consult: Progression of cholangiocarcinoma/hepatocellular carcinoma with poor prognosis Call Completed: No 11/03/18 07:46 Consult to Oncology [CONS] Routine Consulting Provider: On[facility] Reason for Consult: History of hepatocellular carcinoma/cholangiocarcinoma with a poor prognosis now presents with jaundice and elevated total bilirubin likely secondary to progression of disease. Call Completed: No 11/03/18 08:04 Consult to Nephrology [CONS] Routine Consulting Provider: [facility]/JUAN/BEST/MARI Reason for Consult: hyperkalemia Call Completed: No 11/03/18 13:23 Consult to Podiatry [CONS] Routine Consulting Provider: [facility] Reason for Consult: toe fracture Call Completed: Yes Discharging clinician: Kimberley Milton - Constitutional Vitals: Temp Pulse Resp BP Pulse Ox 98.1 F 108 18 104/64 92 11/06/18 07:17 11/06/18 07:17 11/06/18 07:51 11/06/18 07:17 11/06/18 07:51 Exam: General: In no acute distress. slighly more awake. Lethargic. Respiratory exam: CTAB. no accessory muscle use, rales, rhonchi, wheezes Cardiovascular exam: RRR, +S1, +S2. no murmur, gallop, rubs. GI/Abdominal exam: distended abdomen, Mild tenderness. no peritoneal signs. Extremities exam: 1+ pedal edema, Neurological exam: No focal deficits Skin exam: icteric skin - Patient Status Disposition: Hospice - Medical Facility Condition: Serious - Discharge Instructions Follow Up With: Elizabeth Arcos MD [Primary Care Provider] - ([facility])
[2018-11-06] MEDS: Lactulose Oral Soln 20 GM/30 ML UDC PO SCH (08:58)
[2018-11-06] MEDS: *HR* OxyCODONE Immed Rel 5 MG TABLET PO PRN (08:58)
[2018-11-06] MEDS: Gabapentin 300 MG CAPSULE PO SCH (08:58)
[2018-11-06] MEDS: Sennosides/Docusate Sodium TABLET PO SCH (08:59)
[2018-11-06] MEDS: (Omega-3/Dha/Epa/Fish Oil [Fish Oil 1,000 Mg Softgel] PO SCH (08:59)
--- NOTE | 2018-11-06 09:28 | Physician Discharge Referral ---
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 - Diagnosis (1) Type 2 diabetes mellitus Status: Chronic (2) Cholangiocarcinoma Status: Acute (3) DVT prophylaxis Status: Acute (4) SHRUTHI (acute kidney injury) Status: Acute (5) Fracture of toe of left foot Status: Acute (6) Oliguria Status: Acute (7) Hyperkalemia Status: Acute (8) Abdominal distention Status: Acute - Transfer Medications Prescriptions: Oxycodone HCl [Oxaydo] 10 mg PO Q6H PRN 4 Days #16 tablet.orl PRN Reason: Severe Pain Home Medications: Albuterol Sulfate [Ventolin Hfa] 2 puff IH Q6H PRN 01/18/18 [History] Sennosides [Senna] 8.6 mg PO BID 11/04/18 [History] Oxycodone HCl [Oxaydo] 10 mg PO Q6H PRN 4 Days #16 tablet.orl 11/06/18 [Rx] Allergies/Adverse Reactions: Allergy/AdvReac Type Severity Reaction Status Date / Time adhesive tape Allergy Rash Verified 10/27/18 14:11 bacitracin Allergy Rash Verified 10/27/18 14:11 [From Neosporin ([id number])] Neomycin Allergy Rash Verified 10/27/18 14:11 [From Neosporin ([id number])] polymyxin B Allergy Rash Verified 10/27/18 14:11 [From Neosporin ([id number])] Sulfa (Sulfonamide Allergy Rash Verified 10/27/18 14:11 Antibiotics) - Respiratory Orders Smoking Cessation: Smoking cessation has been advised. For more information, call the [place] Tobacco Quit Line at 5-455-AOSV-NOW. CERTIFICATION: I certify that the transfer of the above named patient to an Extended Care Facility is necessary for the continuing treatment of the diagnosis listed. The above information is true and accurate reflection of patient's current condition. Confidential - Redisclosure prohibited without a patient's written consent.
--- NOTE | 2018-11-06 09:53 | Palliative Progress Note ---
Date of Encounter: 11/06/18 Time of Encounter: 09:00 - Assessment and plan (1) Goals of care, counseling/discussion Current Visit: Yes Status: Acute Assessment and plan: Spoke with patient's and Primary RN. Patient being discharged today to [facility]. No further needs identified at this time. 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 (2) Pain, cancer Current Visit: Yes Status: Acute Assessment and plan: Denies pain during assessment. (3) Edema extremities Current Visit: Yes Status: Acute (4) Cholangiocarcinoma Current Visit: Yes Status: Acute Assessment and plan: Oncology recommendations appreciated. Patient desires no further cancer treatment. - Time Spent With Patient Total time spent is greater than 50% in coordination of care (as documented) at patient's floor/unit and/or counseling patient: less than 15 minutes - Subjective Interval history: Patient sitting up in bed upon arrival for assessment. Patient is alert and oriented with verbal stimulation. Patient denies pain, anxiety, dyspnea, nausea, and vomiting upon arrival. Patient reports, "Will have to have bowel movement soon." Chart review shows patient is ready for discharge. present at bedside, reports awaiting arrival of Transport from [facility]. - Constitutional Vitals: Abnormal lab results RBC 3.60 M/mcL (4.19-5.50) L 11/06/18 06:53 Hgb 10.7 g/dL (12.9-16.9) L 11/06/18 06:53 Hct 31.5 % (37.5-50.1) L 11/06/18 06:53 RDW 26.6 % (11.5-14.5) H 11/06/18 06:53 Monocytes # 1.4 K/mcL (0.0-1.3) H 11/06/18 06:53 Nucleated RBCs/100 WBC 0.8 /100 WBC (0) H 11/06/18 06:53 Polychromasia 1+ (Not Present) A 11/06/18 06:53 Hypochromasia Present (Not Present) A 11/06/18 06:53 Anisocytosis 2+ (Not Present) A 11/06/18 06:53 Target Cells 2+ (Not Present) A 11/06/18 06:53 PT 13.5 Seconds (9.4-12.1) H 11/02/18 17:18 Sodium 135 mEq/L (136-145) L 11/06/18 06:53 Potassium 5.2 mEq/L (3.5-5.1) H 11/06/18 06:53 BUN 79 mg/dL (8-23) H 11/06/18 06:53 Creatinine 1.67 mg/dL (0.70-1.30) H 11/06/18 06:53 Est GFR ( Amer) 50 (> 60) L 11/06/18 06:53 Est GFR (Non-Af Amer) 41 (> 60) L 11/06/18 06:53 BUN/Creatinine Ratio 47 (6-26) H 11/06/18 06:53 Glucose 116 mg/dL (70-105) H 11/06/18 06:53 POC Glucose 183 mg/dL (70-99) H 11/05/18 20:33 Calculated Osmolality 305 (280-300) H 11/06/18 06:53 Lactic Acid 2.6 mmol/L (0.5-2.2) H 11/04/18 08:04 Calcium 11.4 mg/dL (8.6-10.3) H 11/06/18 06:53 Total Bilirubin 5.0 mg/dL (0.3-1.0) H 11/03/18 04:25 Direct Bilirubin 3.1 mg/dL (0.0-0.2) H 11/03/18 04:25 Indirect Bilirubin 1.9 mg/dL (0.0-1.2) H 11/03/18 04:25 AST 150 Units/L (13-39) H 11/03/18 04:25 ALT 58 Units/L (7-52) H 11/03/18 04:25 Alkaline Phosphatase 353 Units/L (34-104) H 11/03/18 04:25 Ammonia 80 mcmol/L (16-53) H 11/04/18 08:04 Serum Total Protein 6.2 g/dL (6.4-8.9) L 11/03/18 04:25 Albumin 2.9 g/dL (3.5-5.7) L 11/03/18 04:25 Albumin/Globulin Ratio 0.9 (1.1-2.2) L 11/03/18 04:25 25-OH Vitamin D Total 18 ng/mL (30-80) L 11/03/18 16:20 PTH Intact 9.8 pg/ml (10.0-65.0) L 11/03/18 16:20 General appearance: Present: disheveled, morbidly obese, no acute distress - Head Head exam: Present: atraumatic, normal inspection - Eye Eye exam: Present: normal appearance, PERRL. Absent: periorbital swelling, periorbital tenderness Pupils: Present: normal accommodation, PERRL - ENT ENT exam: Present: mucous membranes dry, normal external ear exam - Neck Neck exam: Present: full ROM, normal inspection - Respiratory Respiratory exam: Present: rhonchi. Absent: accessory muscle use, respiratory distress - Cardiovascular Cardiovascular exam: Present: +S1, +S2 - GI/Abdominal GI/Abdominal exam: Present: diminished bowel sounds, distended. Absent: tenderness - Rectal Rectal exam: Present: deferred - Extremities Exam Extremities exam: Present: normal inspection. Absent: pedal edema - Back Exam Back exam: Present: normal inspection - Neurological Exam Neurological exam: Present: alert, altered (at times; difficulty with focus), oriented X3, strengths equal and symetr throughout - Psychiatric Psychiatric exam: Present: flat affect - Skin Skin exam: Present: intact, pallor, warm Palliative Quality Palliative Quality: Screen for Code Status: Yes, Screen for Goals of Care: Yes, Screen for Pain: Yes, If Pain Regimen Started, Initiate Bowel Regimen: Yes, Screen for Nausea/Vomitting: Yes Code Status: 11/02/18 20:20 Resuscitation Status: Active [RES] Routine Comment: Resuscitation Status: Full Code 11/03/18 13:44 DNR [Resuscitation Status: Active] [RES] Routine Comment: State form completed. Resuscitation Status: [id number] - Labs CBC & Chem 7: 11/06/18 06:53 11/06/18 06:53 Labs: Laboratory Results - last 24 hr 11/05/18 11/05/18 11/05/18 07:13 11:26 16:17 WBC RBC Hgb Hct MCV MCH MCHC RDW Plt Count MPV Immature Gran % Seg Neutrophils % Lymphocytes % Monocytes % Eosinophils % Basophils % Neutrophils # Lymphocytes # Monocytes # Eosinophils # Basophils # Nucleated RBCs/100 WBC Platelet Estimate Polychromasia Hypochromasia Anisocytosis Target Cells Sodium Potassium Chloride Carbon Dioxide BUN Creatinine Est GFR ( Amer) Est GFR (Non-Af Amer) BUN/Creatinine Ratio Glucose POC Glucose 124 H 129 H 121 H Calculated Osmolality Calcium Phosphorus Magnesium 11/05/18 11/06/18 11/06/18 20:33 06:53 06:53 WBC 10.7 RBC 3.60 L Hgb 10.7 L Hct 31.5 L MCV 87.5 MCH 29.7 MCHC 34.0 RDW 26.6 H Plt Count 159 MPV 11.7 Immature Gran % 0.8 Seg Neutrophils % 65.8 Lymphocytes % 17.3 Monocytes % 13.5 Eosinophils % 1.9 Basophils % 0.7 Neutrophils # 7.0 Lymphocytes # 1.9 Monocytes # 1.4 H Eosinophils # 0.2 Basophils # 0.1 Nucleated RBCs/100 WBC 0.8 H Platelet Estimate Normal Polychromasia 1+ A Hypochromasia Present A Anisocytosis 2+ A Target Cells 2+ A Sodium 135 L Potassium 5.2 H Chloride 98 Carbon Dioxide 27 BUN 79 H Creatinine 1.67 H Est GFR ( Amer) 50 L Est GFR (Non-Af Amer) 41 L BUN/Creatinine Ratio 47 H Glucose 116 H POC Glucose 183 H Calculated Osmolality 305 H Calcium 11.4 H Phosphorus 3.9 Magnesium 2.2 - ABG Interpretation ABG results: PT/INR, D-dimer PT 13.5 Seconds (9.4-12.1) H 11/02/18 17:18 Palliative Scale - Palliative Performance Scale How ambulatory is this patient?: Mainly sit / lie What is patient's level of activity and evidence of disease?: Unable hobby/housework, Significant disease How much self-care assistance does patient require?: Considerable assistance required How much oral intake does the patient have?: Normal or reduced What is this patient's level of consciousness?: Full or drowsy with or without confusion Palliative Performance Score: 60 % Consult Discharge Plan - Plan Referrals: Elizabeth Arcos MD [Primary Care Provider] - (patient is going to the [facility] no PCP appointment needed) Prescriptions: Oxycodone HCl [Oxaydo] 10 mg PO Q6H PRN 4 Days #16 tablet.orl PRN Reason: Severe Pain
== END 2018-11-06 10:23 | disposition hospice, inpatient (51) | DRG 683 ==
LOC: EMEROOARM 15:48 → 2NNU 15:48 → SUATTDRO 22:08 → 2NNU 23:01
PROVIDERS: ADMIT Internal Medicine; ATTEND Internal Medicine